=== PATIENT | male | born 1955 | race Caucasian/White ===

== ENCOUNTER 2021-02-15 14:35 | Outpatient (REF) | payer OTHER, SELFPAY ==
[2021-02-15 18:44] LABS: Alanine Aminotransferase 16 U/L (0-40); Albumin Level 2.6 g/dL (3.5-5.0); Alkaline Phosphatase 170 U/L (39-117); Anion Gap 9 (12-20); Aspartate Amino Transferase 28 U/L (5-37); Blood Urea Nitrogen 19 mg/dL (9-16); Calcium 8.3 mg/dL (8.4-10.2); Carbon Dioxide 27 mmol/L (22-29); Chloride 100 mmol/L (96-108); Estimated Glomerular Filt Rate > 60; Glucose Random 127 mg/dL (60-115); Potassium 4.1 mmol/L (3.3-5.1); Sodium 132 mmol/L (135-145); Total Protein 5.8 g/dL (6.5-8.0)
== END 2021-02-15 14:36 | disposition home or self-care (01) ==
LOC: HO.MANLDS 14:35
PROVIDERS: PCP Physician Assistant; Visit Provider Physician Assistant
DX: K72.90 Hepatic failure, unspecified without coma (principal)
CPT/HCPCS: 36415; 80053

== ENCOUNTER 2021-03-22 11:33 | Outpatient (REF) | payer OTHER, SELFPAY ==
[2021-03-22 14:13] LABS: MANUAL DIFF FLAG NO
[2021-03-22 14:18] LABS: Basophils Percent Auto 0.5 % (0-2); Eosinophils Absolute Auto 0.2 X10*3/uL (0.0-0.4); Eosinophils Percent Auto 2.5 % (0-4); Hematocrit 29.6 % (42.0-52.0); Hemoglobin 9.7 g/dl (14.0-18.0); Imm Gran Abs Auto 0.02 X10*3/uL (0.00-0.03); Imm Gran Pct Auto 0.3 % (0.0-0.4); Lymphocytes Absolute Auto 1.8 X10*3/uL (1.2-4.9); Lymphocytes Percent Auto 24.5 % (20-40); Mean Corpuscular HGB Conc 32.8 g/dl (31.0-36.0); Mean Corpuscular Hemoglobin 32.3 pg (27.0-33.0); Mean Corpuscular Volume 98.7 fL (80.0-98.0); Mean Platelet Volume 10.2 fL (9.4-12.4); Monocytes Absolute Auto 0.7 X10*3/uL (0.1-1.2); Monocytes Percent Auto 9.5 % (2-11); Neutrophils Absolute Auto 4.7 x10*3/uL (2.0-8.3); Neutrophils Percent Auto 62.7 % (45-73); Platelet Count 214 X10*3/uL (160-400); Red Cell Distribution Width 14.1 % (11.0-16.0); White Blood Count 7.5 X10*3/uL (4.8-10.8)
[2021-03-22 14:58] LABS: Alanine Aminotransferase 12 U/L (0-40); Albumin Level 2.6 g/dL (3.5-5.0); Alkaline Phosphatase 106 U/L (39-117); Anion Gap 9 (12-20); Aspartate Amino Transferase 22 U/L (5-37); Bilirubin Total 1.5 mg/dL (0.0-1.0); Blood Urea Nitrogen 17 mg/dL (9-16); Calcium 8.7 mg/dL (8.4-10.2); Carbon Dioxide 28 mmol/L (22-29); Chloride 104 mmol/L (96-108); Estimated Glomerular Filt Rate 56; Glucose Fasting 111 mg/dL (60-99); Potassium 4.5 mmol/L (3.3-5.1); Sodium 136 mmol/L (135-145); Total Protein 5.8 g/dL (6.5-8.0)
== END 2021-03-22 11:34 | disposition home or self-care (01) ==
LOC: HO.MANLDS 11:33
PROVIDERS: PCP Internal Medicine; Visit Provider Internal Medicine
DX: K70.40 Alcoholic hepatic failure without coma (principal)
CPT/HCPCS: 36415; 80053; 85025

== ENCOUNTER 2021-06-01 15:20 | Outpatient (REF) | payer OTHER, SELFPAY ==
[2021-06-01 17:58] LABS: MANUAL DIFF FLAG NO
[2021-06-01 18:07] LABS: Basophils Absolute Auto 0.1 X10*3/uL (0.0-0.2); Basophils Percent Auto 0.7 % (0-2); Eosinophils Absolute Auto 0.4 X10*3/uL (0.0-0.4); Hemoglobin 10.4 g/dl (14.0-18.0); Imm Gran Abs Auto 0.03 X10*3/uL (0.00-0.03); Imm Gran Pct Auto 0.4 % (0.0-0.4); Lymphocytes Percent Auto 28.3 % (20-40); Mean Corpuscular HGB Conc 32.5 g/dl (31.0-36.0); Mean Corpuscular Hemoglobin 30.6 pg (27.0-33.0); Mean Corpuscular Volume 94.1 fL (80.0-98.0); Mean Platelet Volume 10.9 fL (9.4-12.4); Monocytes Absolute Auto 0.5 X10*3/uL (0.1-1.2); Monocytes Percent Auto 6.8 % (2-11); Neutrophils Absolute Auto 4.2 x10*3/uL (2.0-8.3); Neutrophils Percent Auto 58.8 % (45-73); Platelet Count 189 X10*3/uL (160-400); Red Cell Distribution Width 13.8 % (11.0-16.0); White Blood Count 7.2 X10*3/uL (4.8-10.8)
[2021-06-01 18:12] LABS: Alanine Aminotransferase 9 U/L (0-40); Albumin Level 3.5 g/dL (3.5-5.0); Alkaline Phosphatase 133 U/L (39-117); Anion Gap 11 (12-20); Aspartate Amino Transferase 19 U/L (5-37); Bilirubin Total 0.8 mg/dL (0.0-1.0); Blood Urea Nitrogen 21 mg/dL (9-16); Calcium 9.5 mg/dL (8.4-10.2); Carbon Dioxide 28 mmol/L (22-29); Chloride 105 mmol/L (96-108); Estimated Glomerular Filt Rate 58; Glucose Random 126 mg/dL (60-115); Potassium 4.2 mmol/L (3.3-5.1); Sodium 140 mmol/L (135-145); Total Protein 6.8 g/dL (6.5-8.0)
[2021-06-01 18:39] LABS: Vitamin B12 389 pg/mL (200-900)
== END 2021-06-01 15:21 | disposition home or self-care (01) ==
LOC: HO.MANLDS 15:20
PROVIDERS: PCP Internal Medicine; Visit Provider Internal Medicine
DX: K70.40 Alcoholic hepatic failure without coma (principal)
CPT/HCPCS: 36415; 80053; 82607; 85025

== ENCOUNTER 2021-07-04 14:37 | Outpatient (REF) | payer MEDICAID, SELFPAY ==
[2021-07-04 17:57] LABS: MANUAL DIFF FLAG NO
[2021-07-04 18:03] LABS: Basophils Absolute Auto 0.1 X10*3/uL (0.0-0.2); Basophils Percent Auto 0.9 % (0-2); Eosinophils Absolute Auto 0.3 X10*3/uL (0.0-0.4); Eosinophils Percent Auto 3.9 % (0-4); Hematocrit 33.9 % (42.0-52.0); Hemoglobin 11.3 g/dl (14.0-18.0); Imm Gran Abs Auto 0.01 X10*3/uL (0.00-0.03); Imm Gran Pct Auto 0.1 % (0.0-0.4); Lymphocytes Percent Auto 29.1 % (20-40); Mean Corpuscular HGB Conc 33.3 g/dl (31.0-36.0); Mean Corpuscular Hemoglobin 31.3 pg (27.0-33.0); Mean Corpuscular Volume 93.9 fL (80.0-98.0); Mean Platelet Volume 11.8 fL (9.4-12.4); Monocytes Absolute Auto 0.7 X10*3/uL (0.1-1.2); Monocytes Percent Auto 9.4 % (2-11); Neutrophils Absolute Auto 3.9 x10*3/uL (2.0-8.3); Neutrophils Percent Auto 56.6 % (45-73); Platelet Count 165 X10*3/uL (160-400); Red Blood Count 3.61 X10*6/uL (4.60-5.80); Red Cell Distribution Width 13.7 % (11.0-16.0); White Blood Count 6.9 X10*3/uL (4.8-10.8)
[2021-07-04 18:11] LABS: Alanine Aminotransferase 18 U/L (0-40); Albumin Level 3.9 g/dL (3.5-5.0); Alkaline Phosphatase 137 U/L (39-117); Anion Gap 12 (12-20); Aspartate Amino Transferase 22 U/L (5-37); Blood Urea Nitrogen 30 mg/dL (9-16); Calcium 9.6 mg/dL (8.4-10.2); Carbon Dioxide 25 mmol/L (22-29); Chloride 105 mmol/L (96-108); Estimated Glomerular Filt Rate 49; Glucose Random 99 mg/dL (60-115); Potassium 4.5 mmol/L (3.3-5.1); Sodium 137 mmol/L (135-145)
[2021-07-04 19:02] LABS: Vitamin B12 303 pg/mL (200-900)
== END 2021-07-04 14:38 | disposition home or self-care (01) ==
LOC: HO.MANLDS 14:37
PROVIDERS: PCP Internal Medicine; Visit Provider Internal Medicine
DX: K70.40 Alcoholic hepatic failure without coma (principal)
CPT/HCPCS: 36415; 80053; 82607; 85025

== ENCOUNTER 2021-10-18 15:26 | Outpatient (REF) | payer MEDICAID, SELFPAY ==
[2021-10-18 19:24] LABS: MANUAL DIFF FLAG NO
[2021-10-18 19:26] LABS: Basophils Percent Auto 0.5 % (0-2); Eosinophils Absolute Auto 0.2 X10*3/uL (0.0-0.4); Eosinophils Percent Auto 2.2 % (0-4); Hematocrit 31.8 % (42.0-52.0); Hemoglobin 10.5 g/dl (14.0-18.0); Imm Gran Abs Auto 0.09 X10*3/uL (0.00-0.03); Imm Gran Pct Auto 1.1 % (0.0-0.4); Lymphocytes Absolute Auto 1.7 X10*3/uL (1.2-4.9); Lymphocytes Percent Auto 19.9 % (20-40); Mean Platelet Volume 10.5 fL (9.4-12.4); Monocytes Absolute Auto 0.6 X10*3/uL (0.1-1.2); Monocytes Percent Auto 7.1 % (2-11); Neutrophils Absolute Auto 5.8 x10*3/uL (2.0-8.3); Neutrophils Percent Auto 69.2 % (45-73); Platelet Count 331 X10*3/uL (160-400); Red Blood Count 3.28 X10*6/uL (4.60-5.80); Red Cell Distribution Width 13.2 % (11.0-16.0); White Blood Count 8.3 X10*3/uL (4.8-10.8)
[2021-10-18 19:36] LABS: INTERNATIONAL NORM RATIO 1.1 (0.9-1.1); Prothrombin Time 12.5 SEC (10.0-13.1)
[2021-10-18 19:39] LABS: Alanine Aminotransferase 83 U/L (0-40); Albumin Level 3.8 g/dL (3.5-5.0); Alkaline Phosphatase 528 U/L (39-117); Anion Gap 14 (12-20); Aspartate Amino Transferase 67 U/L (5-37); Bilirubin Total 5.4 mg/dL (0.0-1.0); Blood Urea Nitrogen 23 mg/dL (9-16); Calcium 9.1 mg/dL (8.4-10.2); Carbon Dioxide 24 mmol/L (22-29); Chloride 101 mmol/L (96-108); Estimated Glomerular Filt Rate 39; Glucose Random 134 mg/dL (60-115); Iron 99 mcg/dL (45-160); Percent Iron Saturation 31 % (15-50); Sodium 135 mmol/L (135-145); Total Iron Binding Capacity 323 mcg/dL (228-428); Total Protein 7.2 g/dL (6.5-8.0); Unsaturated Iron Binding 224 ug/dL
[2021-10-18 19:59] LABS: Ferritin 1249 ng/mL (20-250)
[2021-10-18 20:22] LABS: Folate > 20.0 ng/mL (> or = 4.0); Vitamin B12 354 pg/mL (200-900)
== END 2021-10-18 15:27 | disposition home or self-care (01) ==
LOC: HO.MANLDS 15:26
PROVIDERS: Visit Provider Internal Medicine
DX: D64.9 Anemia, unspecified (principal); K70.31 Alcoholic cirrhosis of liver with ascites
CPT/HCPCS: 36415; 80053; 82607; 82728; 82746; 83540; 85025; 85610

== ENCOUNTER 2023-08-24 09:36 | Outpatient (REF) | payer MEDICARE, BC, SELFPAY ==
[2023-08-24 13:56] LABS: Alanine Aminotransferase 23 U/L (0-40); Alkaline Phosphatase 62 U/L (39-117); Anion Gap 10 (12-20); Aspartate Amino Transferase 23 U/L (5-37); Blood Urea Nitrogen 23 mg/dL (9-16); C Reactive Protein 0.91 mg/dL (< or = 0.50); Calcium 9.1 mg/dL (8.4-10.2); Carbon Dioxide 26 mmol/L (22-29); Chloride 110 mmol/L (96-108); Cholesterol 168 mg/dL (<200); Estimated Glomerular Filt Rate 46; Glucose Random 101 mg/dL (60-115); HDL Cholesterol 39 mg/dL (>40); LDL Cholesterol Calculated 111 mg/dL (<100); Potassium 4.4 mmol/L (3.3-5.1); Sodium 142 mmol/L (135-145); Total Protein 6.6 g/dL (6.5-8.0); Triglycerides 94 mg/dL (<150); Vitamin D 25-OH Total 50.1 ng/mL (>30)
[2023-08-24 14:09] LABS: Vitamin B12 478 pg/mL (200-900)
[2023-08-24 14:20] LABS: Erythrocyte Sedimentation Rate 6 MM/HR (0-15)
[2023-08-28 21:32] LABS: Lyme Abs Screen <0.90 index
[2023-08-30 22:13] LABS: Babesia IgG <1:64 titer (<1:64); Babesia IgM <1:20 titer (<1:20)
== END 2023-08-24 09:37 | disposition home or self-care (01) ==
LOC: HO.MANLDS 09:36
PROVIDERS: Visit Provider Internal Medicine
DX: M79.10 Myalgia, unspecified site (principal); E78.5 Hyperlipidemia, unspecified
CPT/HCPCS: 36415; 80053; 80061; 82306; 82550; 82607; 83735; 85652; 86140; 86617; 86618; 86753

== ENCOUNTER 2023-09-12 09:55 | Outpatient (REF) | payer BC, MEDICARE, SELFPAY ==
[2023-09-12 14:44] LABS: Anion Gap 12 (12-20); Blood Urea Nitrogen 22 mg/dL (9-16); Calcium 8.8 mg/dL (8.4-10.2); Carbon Dioxide 24 mmol/L (22-29); Chloride 111 mmol/L (96-108); Estimated Glomerular Filt Rate 54; Glucose Random 90 mg/dL (60-115); Potassium 4.1 mmol/L (3.3-5.1); Sodium 143 mmol/L (135-145)
== END 2023-09-12 09:56 | disposition home or self-care (01) ==
LOC: HO.MANLDS 09:55
PROVIDERS: Visit Provider Internal Medicine
DX: N28.9 Disorder of kidney and ureter, unspecified (principal)
CPT/HCPCS: 36415; 80048

== ENCOUNTER 2024-09-12 10:35 | Outpatient (REF) | payer BC, MEDICARE, SELFPAY ==
--- OUTSIDE RECORDS SUMMARY | 2024-09-12 11:38 | XMS_ITS | Data Portability ---
Author Organization [facility] Telehealth Patient Home Address [address] [place] [address] Assessment Encounter Date Assessment Date Assessment LastModified by Organization Details LastModified Time 04/07/2024 04/07/2024 [id number] [place] [id number] (CONTROL TECHNICIAN) [facility] MUST MEET 2 OUT OF 3 ELEMENTS: PROBLEMS, DATA OR RISK ELEMENT 1: PROBLEMS 1 OR MORE CHRONIC ILLNESS W/SEVERE EXACERBATION, PROGRESSION MAY REQUIRE HOSPITAL LEVEL CARE OR 1 ACUTE OR CHRONIC ILLNESS OR INJURY THAT POSES A THREAT TO LIFE OR BODILY FUNCTION ELEMENT 2: DATA: MUST MEET 2 OF 3 CATEGORIES CATEGORY 1 REVIEW OF PRIOR EXTERNAL NOTES REVIEW OF THE RESULTS ORDERING OF EACH TEST ASSESSMENT REQUIRING INDEPENDENT HISTORIAN(S) CATEGORY 2: INDEPENDENT INTERPRETATION OF TESTS BY ANOTHER PROVIDER/SPECIALI ST CATEGORY 3: DISCUSSION OF MGT OR TEST INTERPRETATION W/EXTERNAL PHYSICIAN/SPECIAL IST ELEMENT 3: RISK HIGH RISK OF MORBIDITY FROM ADDITIONAL DIAGNOSTIC TESTING OR TREATMENT PROVIDER MUST THOROUGHLY DOCUMENT EACH ELEMENT THAT IS COVERED Not available 04/07/2024 11:00:38 06/04/2024 06/04/2024 [id number] [place] [id number] (CONTROL TECHNICIAN) [facility] MUST MEET 2 OUT OF 3 ELEMENTS: PROBLEMS, DATA OR RISK ELEMENT 1: PROBLEMS 1 OR MORE CHRONIC ILLNESS W/SEVERE EXACERBATION, PROGRESSION MAY REQUIRE HOSPITAL LEVEL CARE OR 1 ACUTE OR CHRONIC ILLNESS OR INJURY THAT POSES A THREAT TO LIFE OR BODILY FUNCTION ELEMENT 2: DATA: MUST MEET 2 OF 3 CATEGORIES CATEGORY 1 REVIEW OF PRIOR EXTERNAL NOTES REVIEW OF THE RESULTS ORDERING OF EACH TEST ASSESSMENT REQUIRING INDEPENDENT HISTORIAN(S) CATEGORY 2: INDEPENDENT INTERPRETATION OF TESTS BY ANOTHER PROVIDER/SPECIALI ST CATEGORY 3: DISCUSSION OF MGT OR TEST INTERPRETATION W/EXTERNAL PHYSICIAN/SPECIAL IST ELEMENT 3: RISK HIGH RISK OF MORBIDITY FROM ADDITIONAL DIAGNOSTIC TESTING OR TREATMENT PROVIDER MUST THOROUGHLY DOCUMENT EACH ELEMENT THAT IS COVERED The patient presented to their appointment today for multiple concerns requiring moderate to high-level decision making and took over 40-45 minutes for an adequate and appropriate history, exam, assessment and treatment plan. This appointment was done with an established patient. Not available 06/04/2024 12:00:45 09/12/2024 09/12/2024 [id number] [place] [id number] (CONTROL TECHNICIAN) [facility] MUST MEET 2 OUT OF 3 ELEMENTS: PROBLEMS, DATA OR RISK ELEMENT 1: PROBLEMS ADDRESSED 1 OR MORE CHRONIC ILLNESS WITH EXACERBATION OR 2 OR MORE STABLE CHRONIC ILLNESSES OR 1 UNDIAGNOSED NEW PROBLEM OR 1 ACUTE ILLNESS W/SYMPTOMS OR 1 ACUTE COMPLICATED INJURY ELEMENT 2: DATA MUST MEET 1 OF 3 CATEGORIES CATEGORY 1: REVIEW OF PRIOR EXTERNAL NOTES, REVIEW OF RESULTS, ORDERING OF EACH TEST, ASSESSMENT REQUIRING INDEPENDENT HISTORIAN OR CATEGORY 2: INDEPENDENT INTERPRETATION OF TESTS BY ANOTHER PHYSICIAN OR SPECIALIST OR CATEGORY 3: DISCUSSION OF MGT OR TEST INTERPRETATION W/EXTERNAL PHYSICIAN OR SPECIALIST ELEMENT 3: RISK RISK OF COMPLICATIONS AND/OR MORBIDITY OR MORTALITY OF PATIENT MANAGEMENT PROVIDER MUST THOROUGHLY DOCUMENT EACH ELEMENT THAT IS COVERED Not available 09/12/2024 10:28:00 Plan of Treatment Reminders Order Date Submit Date Provider Last Modified By Organization Details Last Modified Time Details Appointments FOLLOW UP 2024 10:00A M DR SANTOS Not available Not available Not available FOLLOW UP 15 2024 10:15A M DR SANTOS Not available Not available Not available Lab testoster one, total, serum 2024 025 [facility], [address] [place] [address], [place], [address], 09/12/2024 10:33:37 CBC w/ auto diff 2024 025 [facility], [place], [address], 04/08/2024 05:55:13 CMP, serum or plasma 2024 025 [facility], [place], [address], 04/08/2024 01:48:06 iron + total iron-bind ing capacity (TIBC), serum 2024 025 [facility], [facility], [place], [address], 04/07/2024 11:01:03 Referral None recorded. Procedures None recorded. Surgeries None recorded. Imaging CT, abdomen + pelvis, w/o contrast 2024 025 [facility], [address] [place] [address], [address], 04/09/2024 08:53:28 Medication Orders duloxetin e 30 mg capsule,d elayed release 2024 025 [facility] [address] [place] [address], [address], 09/12/2024 10:33:55 amoxicill in 875 mg tablet 2024 [facility] [address] [place], [address], 09/12/2024 10:00:48 neomycin- polymyxin -hydrocor t 3.5 mg-10,000 unit/mL-1 % ear drops,rolf p 2024 [facility], [address] [place] [address], [address], 09/12/2024 10:01:31 tadalafil 20 mg tablet 2024 025 Not available 06/04/2024 11:59:55 duloxetin e 30 mg capsule,d elayed release 2024 025 [facility], [address] [place] [address], [address], 06/04/2024 11:20:25 methylpre dnisolone 4 mg tablets in a dose pack 2023 025 [email or web address] [facility], [address] [place], [address], 09/12/2024 10:01:14 Patient TargetsNo targets recorded. Patient InstructionsNo instructions recorded. Reason for Referral None Reported. Results Created Date Observation Date Name Description Value Unit Range Abnormal Flag Note LastModifiedBy Organization Detail LastModifiedTime 04/18/1904/17/2024 CT, abdom en + pelvi s, w/o contr ast No observ ation record ed. [email or web address] [facility] [address] [place], [address], 04/23/2024 09:35:35 Result Notes None recorded. Problems Name Problem SNOMED Code Status Onset Date Resolution Date Notes Provider Name and Address Organization Details Recorded Time Anxiety 95104248 Active 2017 Dora antonio [facility] 5 08:28:50 History of back pain 8521118761 12050 Active 2017 Dora antonio [facility] 5 08:29:02 History of depressi on 307875463 Active 2017 Dora antonio [facility] 5 08:29:02 Hyperlip idemia 29133496 Active 2017 Dora antonio [facility] 5 08:28:50 Alcoholi c fatty liver 64578109 Active 2017 Dora antonio [facility] 5 08:28:50 Secondar y peripher al neuropat hy 491272 Active 2017 Dora antonio [facility] 5 08:28:50 Alcoholi c hepatic failure 508244779 Completed 202001/30/2022 Removal Reason: abstinen t Luis Santos, DO [address] [place], [address], [place] [facility] 2 14:31:30 [facility] thromboc ythemia 386451765 Active 2020 Not Available [facility] 3 09:43:20 Chronic gastriti s 4404081 Completed 202001/30/2022 Luis Santos, DO [address] [place] [address], [address], [facility] 2 14:34:26 Right inguinal hernia 234344505 Active 2021 Not Available [facility] 3 09:43:20 Esophagi tis 91239693 Completed 202101/30/2022 Luis Santos, DO [address] [place] [address], [address], [facility] 2 14:34:21 Anemia 174220369 [facility] 08:[facility] Ascites due to alcoholi c cirrhosi s 0369503475 521800 Completed 202101/30/2022 [facility] 5 08:28:50 COVID-19 735318500 Active 2021 Not Available [facility] 3 09:43:20 Right upper quadrant pain 196223468 Completed 202101/30/2022 [facility] 08:29:02 Abdomina l pain 64959868 Active 2021 Dora antonio [facility] 5 08:29:02 Gout 46445871 Active 2021 [facility] 5 08:28:50 Calculus of bile duct with obstruct ion 6928254 Completed 202101/30/2022 Luis Santos, DO [address] [place] [address], [address], [facility] 2 14:34:38 Primary erectile dysfunct ion 128315472 [facility] 5 08:28:50 Alcoholi c polyneur opathy 2356986 Active 2022 Dora Meek null, [facility] 5 08:28:50 Ascites due to alcoholi c cirrhosi s 8187861121 521464 Active 2022 Dora Meek null, [facility] 5 08:28:50 Intermit tent claudica tion 42282324 Active 2022 Dora Meek null, [facility] 5 08:29:02 Erectile dysfunct ion 810460590 Active 2022 Dora Meek null, [facility] 5 08:28:50 Muscle pain 63867361 Active 2023 Dora Meek null, [facility] 5 08:29:02 Renal insuffic iency 533051429 Active 2023 Dora Meek null, [facility] 5 08:28:50 Mood disorder 72035286 Active 2023 Dora Meek null, [facility] 5 08:28:50 Pruritic rash 95405699 Active 2023 Dora Meek null, [facility] 5 08:29:02 Allergic urticari a 23736440 Active 2023 Dora Meek null, [facility] 5 08:28:50 Right upper quadrant pain 126399547 Active 2024 Dora Meek null, [facility] 5 08:29:02 Thromboc ytopenic disorder 430604656 Active 2024 Dora Meek null, [facility] 5 08:28:49 Splenome zainab 93234362 Active 2024 Dora Meek null, [facility] 5 08:29:02 Acute right otitis media 029232594 Active 2024 PETRA SALEEM [address] [place], [address], [facility] 5 14:13:42 Mathews' s esophagu s 282384265 Active 2024 Luis Santos, DO [address] [place], [address], [facility] 5 10:19:48 Hypotest osteroni sm 2140787714 104 Active 2024 Luis Santos, DO [address] [place], [address], [facility] 5 10:31:52 Harmful pattern of use of alcohol 66305651 Completed 201701/30/2022 currentl y in remissio n Luis Santos DO [address] [place], [address], [facility] 2 14:31:52 Notes:Fatty liver on US 04/21 18 Problem Notes None recorded. Procedures Surgical History Date Name Laterality Status Provider Name and Address Organization Details Recorded Time 12/09/19 22 ULTRASOUND GUIDED PARACENTESIS (SURG) completed Luis Santos DO [address] [place] [address], [address], [facility] 12/09/2021 07:21:43 Imaging Results None recorded. Procedure Notes None recorded. Medical Equipment None Reported. Allergies No known drug allergies Medications Name Sig Start Date Stop Date Status Note LastModified by Organization Details LastModified Time bupropion HCl SR 150 mg tablet,12 hr sustained -release TAKE 1 TABLET BY MOUTH TWICE A DAY 08/23 completed Not Available Not Available Not Available prednison e 10 mg tablet TAKE 4 TABS DAILY FOR 2 DAYS,3 TABS FOR 2 DAYS,2 TABS FOR 2 DAYS,1 TAB FOR 2 DAYS,1/2 TAB FOR 2 DAYS 12/16 completed Not Available Not Available Not Available azithromy anoop 250 mg tablet TAKE 2 TABLETS BY MOUTH TODAY, THEN TAKE 1 TABLET DAILY FOR 4 DAYS 05/23 completed Not Available Not Available Not Available ibuprofen 800 mg tablet TAKE ONE TABLET EVERY 8 HOURS NEEDED FOR PAIN 06/15 completed Not Available Not Available Not Available sucralfat e 1 gram tablet Take 1 tablet 4 times a day by oral route for 30 days. 06/06 completed had dirrahea Not Available Not Available Not Available promethaz ine 12.5 mg tablet 03/04 completed Not Available Not Available Not Available famotidin e 40 mg tablet TAKE 1 TABLET BY MOUTH EVERY DAY 06/15 completed Not Available Not Available Not Available spironola ctone 100 mg tablet 03/04 completed Not Available Not Available Not Available thiamine HCl (vitamin B1) 100 mg tablet TAKE 1 TABLET BY MOUTH TWICE A DAY active Not Available Not Available No t Available ciproflox acin 500 mg tablet TAKE 1 TABLET BY MOUTH EVERY 12 HOURS FOR 7 DAYS 09/12 completed Not Available Not Available Not Available amoxicill in 500 mg tablet TAKE 1 TABLET BY MOUTH EVERY 6 HOURS UNTIL FINISHED 05/23 completed Not Available Not Available Not Available ketorolac 0.5 % eye drops 06/15 completed Not Available Not Available Not Available amoxicill in 875 mg tablet TAKE 1 TABLET BY MOUTH EVERY 12 HOURS DIRECTED FOR 7 DAYS 09/12 completed Not Available Not Available Not Available potassium chloride ER 20 mEq tablet,ex tended release(p art/cryst ) 03/04 completed Not Available Not Available Not Available lorazepam 0.5 mg tablet Take 2 tablets every day by oral route as needed for 1 day. 11/15 completed Not Available Not Available Not Available furosemid e 80 mg tablet 03/04 completed Not Available Not Available Not Available cephalexi n 500 mg capsule TAKE 1 CAPSULE BY MOUTH 4 TIMES A DAY FOR 10 DAYS. TAKE W FOOD, YOGURT, PROBIOTI CS. FINISH ALL. 12/16 completed Not Available Not Available Not Available pantopraz ole 40 mg tablet,de layed release TAKE 1 TABLET BY MOUTH EVERY DAY 06/15 completed Not Available Not Available Not Available promethaz ine 25 mg tablet 03/04 completed Not Available Not Available Not Available gabapenti n 300 mg capsule 03/04 completed Not Available Not Available Not Available omeprazol e 20 mg capsule,d elayed release TAKE 1 CAPSULE BY MOUTH EVERY DAY 1/2 TO 1 HOUR BEFORE MORNING MEAL active Not Available Not Available No t Available folic acid 1 mg tablet TAKE 1 TABLET BY MOUTH EVERY DAY 12/16 completed Not Available Not Available Not Available mupirocin 2 % topical ointment APPLY SMALL AMOUNT TO AFFECTED AREAS 3 TIMES A DAY 10/12 completed Not Available Not Available Not Available furosemid e 20 mg tablet TAKE 1 TABLET BY MOUTH EVERY DAY 01/30 completed Not Available Not Available Not Available mirtazapi ne 15 mg tablet TAKE 1 TABLET BY MOUTH EVERY DAY FOR 30 DAYS 04/07 completed Not Available Not Available Not Available lorazepam 1 mg tablet TAKE 0.5 TABLETS BY MOUTH EVERY 6 (SIX) HOURS NEEDED FOR ANXIETY. 12/16 completed Not Available Not Available Not Available methylpre dnisolone 4 mg tablets in a dose pack TAKE 6 TABLETS ON DAY 1 DIRECTED ON PACKAGE AND DECREASE BY 1 TAB EACH DAY FOR A TOTAL OF 6 DAYS 09/12 completed Not Available Not Available Not Available spironola ctone 50 mg tablet TAKE 1 TABLET BY MOUTH EVERY DAY 10/12 completed Not Available Not Available Not Available oxycodone 5 mg tablet TAKE 1 TABLET BY MOUTH EVERY 4 HOURS NEEDED FOR MODERATE PAIN. PARTIAL FILL OK 01/30 completed Not Available Not Available Not Available neomycin- polymyxin -hydrocor t 3.5 mg-10,000 unit/mL-1 % ear drops,rolf p INSTILL 4 DROPS INTO AFFECTED EAR(S) 3 TIMES A DAY 09/12 completed Not Available Not Available Not Available Laxative (bisacody l) 5 mg tablet,de layed release TAKE 4 TABLETS BY MOUTH DAILY FOR 1 DAY 08/23 completed Not Available Not Available Not Available Multivita min 50 Plus tablet Take 1 tablet every day by oral route. active OTC Not Available Not Available No t Available tadalafil 20 mg tablet Take 1 tablet every day by oral route for 12 days. 2024 active Not Available Not Available Not Avai lable escitalop tian 5 mg tablet TAKE 1 TABLET BY MOUTH EVERY DAY FOR 30 DAYS 09/12 completed Not Available Not Available Not Available duloxetin e 30 mg capsule,d elayed release Take 1 capsule every day by oral route for 30 days. 2024 active Not Available Not Available Not Avai lable lactulose 10 gram/15 mL oral solution TAKE 15MLS BY MOUTH EVERY DAY 04/07 completed Not Available Not Available Not Available pregabali n 75 mg capsule TAKE 1 CAPSULE BY MOUTH TWICE A DAY FOR 30 DAYS MAX 5 REFILLS 08/23 completed Not Available Not Available Not Available Vitamin B1 (Thiamine ) daily; OTC 08/23 completed Not Available Not Available Not Available Gavilax 17 gram/dose oral powder DIRECTED 08/23 completed Not Available Not Available Not Available Narcan 4 mg/actuat ion nasal spray 03/04 completed Not Available Not Available Not Available Vitals Date Recorded Body height Body mass index (BMI) Body weight Oxygen saturation Oxygen saturation in Arterial blood by Pulse oximetry Heart rate Systolic blood pressure Diastolic blood pressure Provider Name and Address Organization Details Last Updated DateTime 5 181.61 cm 30.9 kg/m2 469314. 28 g 100 % 100 % 64 /min 138 mm[Hg] 70 mm[Hg] Desiree Jacobsen [facility] 5 10:36:48 Date Recorded Body height Body mass index (BMI) Body weight Heart rate Oxygen saturation Oxygen saturation in Arterial blood by Pulse oximetry Systolic blood pressure Diastolic blood pressure Provider Name and Address Organization Details Last Updated DateTime 5 181.61 cm 29.6 kg/m2 83419.0 8 g 72 /min 98 % 98 % 120 mm[Hg] 76 mm[Hg] Dora Meek [facility] 5 11:22:29 Date Recorded Body height Body mass index (BMI) Body weight Heart rate Oxygen saturation Oxygen saturation in Arterial blood by Pulse oximetry Systolic blood pressure Diastolic blood pressure Provider Name and Address Organization Details Last Updated DateTime 5 181.61 cm 29.4 kg/m2 86774.7 7 g 62 /min 98 % 98 % 134 mm[Hg] 76 mm[Hg] PETRA SALEEM [address] [place], [address], [facility] 5 14:02:31 Date Recorded Body height Body mass index (BMI) Body weight Oxygen saturation Oxygen saturation in Arterial blood by Pulse oximetry Heart rate Systolic blood pressure Diastolic blood pressure Provider Name and Address Organization Details Last Updated DateTime 5 181.61 cm 29 kg/m2 35939.7 1 g 99 % 99 % 61 /min 110 mm[Hg] 66 mm[Hg] Radhabinh Fallon [facility] 5 10:04:04 Date Recorded Body height Body mass index (BMI) Body weight Heart rate Oxygen saturation Oxygen saturation in Arterial blood by Pulse oximetry Systolic blood pressure Diastolic blood pressure Provider Name and Address Organization Details Last Updated DateTime 4 181.61 cm 29.1 kg/m2 01161.0 7 g 78 /min 98 % 98 % 104 mm[Hg] 60 mm[Hg] Dora Meek [facility] 4 10:46:45 Social History Question Answer Notes LastModified by Organizat ion Details LastModified Time Tobacco Smoking Status Former Smoker Christal Francesco antonio [facility] 11/14/2017 16:19:29 What Was The Date Of Your Most Recent Tobacco Screening? 09/12/2024 [email or web address] Information not available 09/12/2024 How Many Years Have You Smoked Tobacco? 15 [email or web address] Information not available 11/14/2017 Sex: Unknown Functional Status Question Answer Note LastModified by Organization D etails LastModified Time Do you or have you ever used any other forms of tobacco or nicotine? No [email or web address] Information not available 06/15/2022 Mental Status None recorded. Family History Nothing Reported. Medical History No medical history recorded. Immunizations Vaccine Type Date Status Note Provider Nam e and Address Organization Details Recorded Time COVID-19 vaccine, vector-nr, rS-Ad26, PF, 0.5 mL 01/18/2021 completed Marilu antonio [facility] 03/30/2021 10:41:10 influenza, unspecified formulation 02/03/2021 completed Benita antonio [facility] 04/07/2022 08:32:02 zoster, unspecified formulation 08/08/2022 arron antonio [facility] 08/11/2022 10:55:41 Past Encounters Encounter ID Performer Location Encounter Start Date Encounter Closed Date Diagnosis/Indication Diagnosis SNOMED-CT Code Diagnosis ICD10 Code Diagnosis Note [id number] Luis Santos [facility] [address] [place] [address],[place] [address] 11/14/2017 16:05:58 11/14/2017 16:51:46 Adult health examination 006158303 Z00.01 Active or passive immunization 081316842 Z23 Screening for malignant neoplasm of colon 661751750 Z12.11 Body mass index 25-29 - overweight 299607262 Z68.28 normal waist circumfere nce Alcoholic fatty liver 50 813756 K70.0 in setting of currently poor diet, but complete abstinence from alcohol will recheck will continue to monitor lft anemia and thrombocyt openia have resolved, again will recheck Secondary peripheral neuropathy 781164 G63 2/2 etoh significan tly improved since etoh Primary er ectile dysfunction 358454596 N52.9 [place] [id number] Luis Santos [facility] [address] [facility],[place] [address] 05/17/2018 15:02:55 05/17/2018 15:43:07 Alcoholic fatty liver 73791014 K70.0 LFTs all normal sober now x 1.5 years -praised for accomplish ment Secondary peripheral neuropathy 735040 G63 most likely 2/2 etoh with significan t improvemen t since etoh abstinence , but sx have not since improved and is concerned something else may be going on Primary er ectile dysfunction 926503374 N52.9 in absence of BPH sx Thrombocytosis 8753633 D 47.3 all back to normal, discharged from heme-onc Hyperlipidemia 41744391 E78.5 all normal Intermitte nt claudication 59297880 I73.9 sx concerning for claudicati on [place] - lesion 400535234 L84 [id number] Luis Santos [facility] [address] [facility],[place] [address] 11/15/2018 15:00:17 11/15/2018 16:04:22 Alcoholic fatty liver 31184494 K70.0 LFTs all normal sober now x 1.5 years -praised for accomplish ment Secondary peripheral neuropathy 106863 G63 has had progressiv e gradual improvemen t continues to see dr vidal had back surgery - dr delgado with good effect - improved back pain, but still has some sciatica Hyperlipidemia 89066863 E78.5 all normal Impaired f asting glycemia 438213300 R73.01 Malaise and fatigue 2717 13476 R53.83 Primary er ectile dysfunction 200663676 N52.9 in absence of BPH sx cialis 20 mg somewhat effective [id number] Luis Santos [facility] [address] [facility],[place] [address] 03/04/2021 13:34:35 03/04/2021 14:29:26 Thrombocytosis 9506595 D47.3 from hepatic failure and this will hopefully improve Secondary peripheral neuropathy 093998 G63 discuss re ambulating and gait and Ascites du e to alcoholic cirrhosis 0878490150 853751 K70.31 need s to have monthly set up Alcoholic hepatic failure 268711112 K70.40 willcont to follow he understand s that if he drinks again he is . 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 Secondary peripheral neuropathy 610878 G63 discuss re ambulating and gait and reccomende d Intermitte nt claudication 35020756 I73.9 seems stable at the moment Chronic gastritis 509653 9 K29.50 decided he is better with the pantoprazo le Ascites 162525845 R18.8 [id number] Luis Santos [facility] [address] [facility] [place] [address] 04/20/2021 08:15:01 04/22/2021 11:37:54 Alcoholic hepatic failure 058497660 K70.40 will cont to follow he understand s that if he drinks again he is .he cont to improve and ahis nutrition status is better overallede ma is also better Thrombocytosis 6046526 D 47.3 from hepatic failure and this will hopefully improve Secondary peripheral neuropathy 957930 G63 discuss re ambulating and gait and reccomende d overall is improvein g even at night Intermitte nt claudication 31747568 I73.9 seems stable at the moment [id number] Luis Santos [facility] [address] [facility],[place] [address] 06/06/2021 10:40:52 06/06/2021 16:05:07 Essential thrombocythemia 180993474 D47.3 stable Gastroesop hageal reflux disease 071055269 K21.00 has fu with on 07/04 with GI for evaluation carafate caused too many side effectswil l start on famotidine Ascites du e to alcoholic cirrhosis 2142005700 407957 K70.31 has fu with US this monthwill most likely will need another tap soon Right inguinal hernia 23 8568185 K40.90 needs eval through general surgeryver y large hernia, not reducing with pressure to the area [id number] Luis Santos [facility] [address] [facility],[place] [address] 07/06/2021 11:38:21 07/06/2021 13:57:54 Active or passive immunization [id number] Z23 advised due for shingles and tdap will consider vaccines Chronic gastritis 351799 9 K29.50 decided he is better with the pantoprazo le famotidine Secondary peripheral neuropathy 427264 G63 discuss re ambulating and gait and reccomende d overall is improvein g even at night Essential thrombocythemia 590567882 D47.3 stabel and not worse and appears improved Alcoholic hepatic failure 929609278 K70.40 here and is doing much better and is feeling goodeating better and ascites is improved and almost resolved [id number] Luis Santos DO [facility] Internal Medicine [address] [facility] [address] [place] [address] 08/03/2021 14:32:13 08/03/2021 16:05:19 Alcoholic hepatic failure 787337823 K70.40 here and is doing much better and is feeling goodeating better and ascites is improved and almost resolvedwi ll be getting a upper endoscopy and colonoscop uy Secondary peripheral neuropathy 182857 G63 discuss re ambulating and gait and reccomende d overall is improvin g even at night Right inguinal hernia 23 6734367 K40.90 given it has markely worsend and now impedes pt from ability to exercise we will refer back to surg [id number] Luis Santos [facility] Internal Medicine [address] [facility], [place] [address] 10/12/2021 10:54:57 10/12/2021 13:51:32 Advance care planning 670322164 Z71.89 done Active or passive immunization 577194673 Z23 advised he is due for tdap, pneu , & shingles vaccines Chronic gastritis 859317 9 K29.50 decided he is better with the pantoprazo le famotidine Alcoholic hepatic failure 966189817 K70.40 here and is doing much better and is feeling goodeating better and ascites is improved and almost resolvedwi ll be getting a upper endoscopy and colonoscop uy Anemia 474491531 D64.9 we will cont Ascites du e to alcoholic cirrhosis 6148856139 291326 K70.31 will need to rechk and get labwork etc [id number] Luis Santos [facility] Internal Medicine [address] [facility], [place] [address] 12/16/2021 09:22:49 12/16/2021 10:18:29 Anxiety 60520243 F41.9 escitalopr am is no longer needed will wean off Hyperlipidemia 42056555 E78.5 will be checking 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 doing well has been abstinent for over a year Ascites du e to alcoholic cirrhosis 3811904578 368258 K70.31 had recent US prior to having cholecyste ctomy scheduled for dec 21 Primary er ectile dysfunction 053980619 N52.9 [id number] Luis Santos [facility] Internal Medicine [address] [facility], [place] [address] 01/30/2022 14:10:12 01/30/2022 16:39:17 Hyperlipidemia 06858930 E78.5 will be checking Active or passive immunization 076589561 Z23 advised he is due for tdap, shingles, and flu shot Essential thrombocythemia 309381697 D47.3 stable and not worse and appears improved Alcoholic fatty liver 50 498002 K70.0 will check LFT to see if he has been resolving [id number] Luis Santos [facility] Internal Medicine [address] [facility],[place] [address] 04/07/2022 11:29:15 04/07/2022 13:34:25 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 he is clearly suffering at bedtime did not tolerate gabapentin in the past so we will treatwith lyrica Ascites du e to alcoholic cirrhosis 4081179229 078490 K70.31 had recent US prior to having cholecyste ctomy scheduled for dec 21 Essential thrombocythemia 950909460 D47.3 stable and not worse and appears improved Intermitte nt claudication 78678553 I73.9 seems stable at the moment [id number] Luis Santos [facility] Internal Medicine [address] [facility], [place] [address] 05/23/2022 09:22:42 05/23/2022 14:02:56 Anxiety 38187073 F41.9 escitalopr am is no longer needed Hyperlipidemia 00504271 E78.5 will be checking Erectile dysfunction 860 983581 F52.21 will refer to urologist Alcoholic polyneuropathy 5731796 G62.1 he is clearly suffering at bedtime did not tolerate gabapentin in the past so we will treatwith lyrica Screening for malignant neoplasm of colon 165832681 Z12.11 [id number] Luis Santos [facility] Internal [facility] [address] [facility], [place] [address] 06/15/2022 11:26:34 06/16/2022 16:34:18 Pre-surgery evaluation 738558985 Z01.818 The patient was seen in the office today for pre-op evaluation . All medical conditions on patient's problem list were addressed and are currently stable, no interventi on needed at this time. Based on history and physical performed, the patient is cleared for surgery. [id number] Luis Santos [facility] Internal Medicine [address] [facility], [place] [facility] [place] [address] 11/22/2022 09:19:57 11/22/2022 09:51:23 Hyperlipidemia 56365916 E78.5 will be checking Alcoholic polyneuropathy 5258499 G62.1 he is clearly suffering at bedtime did not tolerate gabapentin in the past so we will treatwith lyrica Erectile dysfunction 860 724321 F52.21 will refer to urologist Essential thrombocythemia 191402910 D47.3 stable and not worse and appears improved [id number] Luis Santos [facility] Internal [facility] [address] [facility], [place] [address] 08/24/2023 08:57:12 08/24/2023 11:03:51 History of depression 752814076 Z86.59 we will wean off the buprop see how he does and consider mirtaz Depression screening 171 065009 Z13.31 pos will consider mirtaz Gout 90489667 M10.9 uric acid chk needed Muscle pain 79914867 M79 .10 given extensive sx must consider pmr lyme etc Hyperlipidemia 96163482 E78.5 will be checking Alcoholic fatty liver 50 382876 K70.0 will check LFT to see if he has been resolving [id number] Luis Santos [facility] Internal Medicine [address] [facility],[place] [address] 10/02/2023 10:19:20 10/02/2023 15:18:11 Adult health examination 098484245 Z00.01 Screening for cardiovascular system disease 450435621 Z13.6 Screening for malignant neoplasm of colon 105361154 Z12.11 Secondary peripheral neuropathy 535446 G63 discuss re ambulating and gait and reccomende d overall is improving even at night [id number] Luis Santos [facility] Internal Medicine [address] [facility], [place] [facility] [place] [address] 12/21/2023 10:41:59 12/21/2023 11:14:27 Pruritic rash 51562702 L28.2 Allergic urticaria 43947 009 L50.0 [id number] Luis Santos DO [facility] Internal Medicine [address] [facility],[place] [address] 04/07/2024 10:30:19 04/07/2024 11:06:47 Ascites due to alcoholic cirrhosis 0354334605 656933 K70.31 had recent US prior to having cholecyste ctomy scheduled for sep 21 Alcoholic fatty liver 50 162146 K70.0 will check LFT to see if he has been resolving Anemia 259624009 D64.9 we will cont to monitor Essential thrombocythemia 265611654 D47.3 stable and not worse and appears improved Mood disorder 83007201 F 39 will stop the mirtazapin ewill try the duloxetine Right uppe r quadrant pain 796707396 R10.11 noted [id number] Luis Santos [facility] Internal Medicine [address] [facility],[place] [address] 06/04/2024 11:09:04 06/04/2024 12:11:51 Depression screening 952162442 Z13.31 pos will consider mirtaz Ascites du e to alcoholic cirrhosis 4702221281 106930 K70.31 had recent US prior to having cholecyste ctomy scheduled for sep 21 Alcoholic fatty liver 50 940035 K70.0 will check LFT to see if he has been resolving Anemia 446390172 D64.9 we will cont to monitor Essential thrombocythemia 644926852 D47.3 stable and not worse and appears improved Mood disorder 71048353 F 39 will stop the mirtazapin ewill try the duloxetine Right uppe r quadrant pain 622527812 R10.11 noted and is much better Primary er ectile dysfunction 281848282 N52.9 [id number] Luis Santos [facility] Internal Medicine [address] [facility],[place] [address] 06/11/2024 13:55:45 06/11/2024 15:29:52 Acute right otitis media 070837093 H65.01 will set up with amox and ear drop [id number] Luis Santos DO [facility] Internal Medicine [address] [facility],[place] [address] 09/12/2024 09:57:56 09/12/2024 11:00:44 Depression screening 186177330 Z13.31 having some side effects of the escital will change to duloxet Hyperlipidemia 78525158 E78.5 will be checking Health Concerns Section Related Observation LastModified by Organization Detai ls LastModified Time None Recorded Concern Status LastModified by Organization Details LastModified Time None Recorded Advance Directives Directive None Recorded Payers Insurance Date Sequence Insurance Name Policy Number Policy 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 Member ID Guarantor Name 09/09/2024 3 [place] [facility] Yobani Montero [id number] Yobani Montero 09/09/2024 1 [facility] (O) [id number] Yobani Montero [id number] Yobani Montero 09/09/2024 1 [place] [facility] ([place]) [id number] Yobani Montero [id number] Yobani Montero 09/09/2024 1 [facility] (O) [id number] Yobani Montero [id number] Yobani Montero 09/09/2024 3 [place] PRIOR TO 2022 - [facility] (MEDICAID) Yobani Montero [id number] Yobani Montero 09/09/2024 1 [place] [employer] Yobani Montero [id number] Yobani Montero 09/09/2024 2 [place] [id number] Yobani Montero [id number] Yobani Montero Notes Date Note Type Note Provider Name and Address Organization Details Recorded Time 12/21/19 24 text/htm l here for rashdeveloped 4 days ago on back and neck and has spread to arms face and now legs Luis Santos DO [address] [facility], [place], [address], [facility] 12/21/2023 11:13:23 04/07/19 25 text/htm l herefor rechkrelates that the mirtazapine is making him too tiredrelates still feeling downhad felt good with escitalopram but had side effects also has had some RUQ PAIN relates that it radiates to his backno issue after eating most notable when up and moving around gets a severe cramp t times lasts a few seonds and double him over Luis Saumya Santos, DO [address] [place], [address], [facility] Internal Medicine 04/07/2024 11:01:08 06/05/19 25 text/htm l here for rechk and is doing ok has lost 10 lbs through better diethas been abstinentescitalopram was started last week priorhere for rechkrelates that the mirtazapine is making him too tiredrelates still feeling downhad felt good with escitalopram but had side effects also has had some RUQ PAIN relates that it radiates to his backno issue after eating most notable when up and moving around gets a severe cramp t times lasts a few seconds and double him over Luis A. Phyllis, DO [address] [place], [address], [facility] Internal Medicine 06/04/2024 12:00:49 06/12/19 25 text/htm l c/o right ear pain increased tinnitus, denies cold symptoms, reports facial pain, no hearing changesthe patient noted it started Sunday and has progressed since then does note his dog has been licking into his ear, which could be the source of the infection notable redness and bulging right side of his TM PETRA SALEEM [address] [place], [address], [facility] Medicine 06/11/2024 14:17:48 09/13/19 25 text/htm l Care Management - HyperlipidemiaReported bypatient.Control:usually well controlled; improving; at goal Complications:no coronary artery disease; no heart attack; no cardiovascular disease; no pancreatitis; no stroke here for fllow up apptdoing wellhad a recent egd which showed Barrets esoph without dysplasia priorhere for rechkrelates that the mirtazapine is making him too tiredrelates still feeling downhad felt good with escitalopram but had side effects also has had some RUQ PAIN relates that it radiates to his backno issue after eating most notable when up and moving around gets a severe cramp t times lasts a few seconds and double him over Luis Binh. Phlylis, DO [address] [facility], [place], [address], [place] [facility] 09/12/2024 10:34:36
[2024-09-16 15:17] LABS: Testosterone, Total 583 ng/dL (250-1100)
== END 2024-09-12 10:36 | disposition home or self-care (01) ==
LOC: HO.MANLDS 10:35
PROVIDERS: Visit Provider Internal Medicine
DX: Z13.31 Encounter for screening for depression (principal)
CPT/HCPCS: 36415; 84403

== ENCOUNTER 2024-10-28 10:46 | Outpatient (REF) | payer MEDICARE, BC, SELFPAY ==
--- OUTSIDE RECORDS SUMMARY | 2024-10-28 11:59 | XMS_ITS | Clinical Summary ---
[facility] Organization [facility] Address [address] [place] [address] Care Team Providers Care Administrative And Program Specialist Name Role Phone Luis Ferguson Primary Care Provider [phone] Social History Tobacco Use Types Packs/Day Years Used Date Smoking Tobacco: Never Assessed Sex and Gender Information Value Date Recorded Sex Assigned at Male 03/22/2022 2:37 PM EST Legal Sex Male 11:15 AM EST Gender Identity Male 03/22/2022 2:37 PM EST Sexual Orientation Straight 03/22/2022 2: 37 PM EST Plan of Treatment Health Maintenance Due Date Last Done Comments DTaP,Tdap,and Td Vaccines (1 - Tdap) 1976 Pneumococcal Vaccine: 50+ Ye ars (1 of 1 - PCV) 2007 Zoster Vaccines (1 of 2) 2007 COVID-19 Vaccine ( - 2023-2 5 season) 2023 Depression Screening 04/02/2024 Influenza Vaccine (#1) 2024 RSV Immunization Adult Patie nts (1 - 1-dose 75+ series) 2032 HIB Vaccines Aged Out No longer eligi ble based on patient's age to complete this topic HPV Vaccines Aged Out No longer eligi ble based on patient's age to complete this topic Hepatitis A Vaccines Aged Out No long er eligible based on patient's age to complete this topic Hepatitis B Vaccines Aged Out No long er eligible based on patient's age to complete this topic IPV Vaccines Aged Out No longer eligi ble based on patient's age to complete this topic MMR Vaccines Aged Out No longer eligi ble based on patient's age to complete this topic Meningococcal ACWY Vaccine Aged Out N o longer eligible based on patient's age to complete this topic Meningococcal B Vaccine Aged Out No l onger eligible based on patient's age to complete this topic RSV Immunization Patients Un john 20 months Aged Out No longer eligible b ased on patient's age to complete this topic Varicella Vaccines Aged Out No longer eligible based on patient's age to complete this topic Advance Directives Documents on File Type Date Recorded 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 [address] [place], [place] PCP - General Internal Medicine 07/08/18
--- OUTSIDE RECORDS SUMMARY | 2024-10-28 11:59 | XMS_ITS | Data Portability ---
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) MDM MODERATE MUST MEET 2 OUT OF [...] EACH ELEMENT THAT IS COVERED Not available 10/27/2024 10:38:24 Plan of Treatment Reminders Order Date Submit Date Provider Last Modified By Organization Details Last Modified Time Details Appointments MEDICARE ANNUAL WELLNESS 2024 11:45A M DR SANTOS Not available Not available Not available Lab vitamin B12, serum 2024 025 [facility], [address] [place] [address], [address], 10/27/2024 10:43:56 TSH, serum or plasma 2024 [facility], [address] [place] [address], [address], 10/27/2024 10:43:56 testoster one, total, serum 2024 [facility], [address] [place] [address], [address], 10/27/2024 10:43:56 CBC w/ auto diff 2024 [facility], [address] [place] [address], [address], 10/27/2024 10:43:56 vitamin D, 25-hydrox y, total, serum 2024 [facility], [address] [place] [address], [address], 10/27/2024 10:43:56 CMP, serum or plasma 2024 [facility], [address] [place] [address], [address], 10/27/2024 10:43:56 iron + TIBC + ferritin, serum 2024 [facility], [address] [place] [address], [address], 10/27/2024 10:43:56 ESR (erythroc yte sedimenta tion rate), blood 2024 [facility], [address] [place] [address], [address], 10/27/2024 10:43:56 testoster one, total, serum 2024 [facility], [address] [place] [address], [place], [address], 09/17/2024 11:41:25 CBC w/ auto diff 2024 025 [facility], [place], [address], 04/08/2024 05:55:13 CMP, serum or plasma 2024 025 [facility], [place], [address], 04/08/2024 01:48:06 iron + total iron-bind ing capacity (TIBC), serum 2024 025 [facility], [place], [address], 04/07/2024 11:01:03 Referral None recorded. Procedures None recorded. Surgeries None recorded. Imaging CT, abdomen + pelvis, w/o contrast 2024 [facility], [address] [place], [address], 04/09/2024 08:53:28 Medication Orders duloxetin e 30 mg capsule,d elayed release 2024 025 [facility] #2024, [address] [place], [address], 09/12/2024 10:33:55 amoxicill in 875 mg tablet 2024 [facility] #2024, [address] [place], [address], 09/12/2024 10:00:48 neomycin- polymyxin -hydrocor t 3.5 mg-10,000 unit/mL-1 % ear drops,rolf p 2024 025 [facility]acy #2024, [address] [place], [address], 09/12/2024 10:01:31 tadalafil 20 mg tablet 2024 025 Not available 06/04/2024 11:59:55 duloxetin e 30 mg capsule,d elayed release 2024 025 [facility], [address] [place], [address], 06/04/2024 11:20:25 Patient TargetsNo targets recorded. Patient Instructions Encounter Date Encounter Id Patient Instructions Last Modified By Organization Details Last Modified Time 10/27/2024 [id number] anemia: care instructions Not available 10/27/2024 10:44:38 Reason for Referral None Reported. Results Created Date Observation Date Name Description Value Unit Range Abnormal Flag Note LastModifiedBy Organization Detail LastModifiedTime 04/18/1904/17/2024 CT, abdom en + pelvi s, w/o contr ast No observ ation record ed. [email or web address] [facility] [address] [place], [address], 04/23/2024 09:35:35 Result Notes None recorded. Problems Name Problem SNOMED Code Status Onset Date Resolution Date Notes Provider Name and Address Organization Details Recorded Time Harmful pattern of use of alcohol 99885662 Completed 201701/30/2022 currentl y in staciio kirsten Santos, DO [address] [place], [address], [facility] 2 14:31:52 Anxiety 52858523 Active 2017 [facility] 5 08:28:50 History of back pain 2376804573 10108 Active 2017 Dora antonio [facility] 5 08:29:02 History of depressi on 453300670 Active 2017 Dora antonio [facility] 5 08:29:02 Hyperlip idemia 15961789 [facility] 5 08:28:50 Alcoholi c fatty liver 75859114 [facility] 2017 [facility] 08:28:50 Secondar y peripher al neuropat hy 180523 Active 2017 [facility] 5 08:28:50 Alcoholi c hepatic failure 256018875 Completed 202001/30/2022 Removal Reason: abstinen t Luis Santos, DO [address] [place] [address], [address], [facility] 2 14:31:30 [facility] thromboc ythemia 771550069 Active 2020 Not Available [facility] 3 09:43:20 Chronic gastriti s 2181774 Completed 202001/30/2022 Luis Santos, DO [address] [place] [address], [address], [facility] 2 14:34:26 Right inguinal hernia 056094323 Active 2021 Not Available [facility] 3 09:43:20 COVID-19 160924189 Active 2021 Not Available [facility] 3 09:43:20 Esophagi tis 88203868 Completed 202101/30/2022 Luis Santos, DO [address] [place], [address], [facility] 2 14:34:21 Anemia 006695132 Active 2021 [facility] 5 08:28:50 Ascites due to alcoholi c cirrhosi s 2005818157 902104 Completed 202101/30/2022 [facility] 5 08:28:50 Right upper quadrant pain 154338708 Completed 202101/30/2022 Dora Meek null, [facility] 5 08:29:02 Abdomina l pain 04831089 Active 2021 Dora Meek null, [facility] 5 08:29:02 Gout 22579094 Active 2021 Dora Meek null, [facility] 5 08:28:50 Calculus of bile duct with obstruct ion 8486725 Completed 202101/30/2022 Luis Santos, DO [address] [facility], [place], [address], [facility] 2 14:34:38 Primary erectile dysfunct ion 530209434 Active 2021 Dora Meek null, [facility] 5 08:28:50 Alcoholi c polyneur opathy 3251833 Active 2022 Dora Meek null, [facility] 5 08:28:50 Ascites due to alcoholi c cirrhosi s 0853127304 412033 Active 2022 Dora Meek null, [facility] 5 08:28:50 Intermit tent claudica tion 45558994 Active 2022 Dora Meek null, [facility] 5 08:29:02 Erectile dysfunct ion 216862494 Active 2022 Dora Meek null, [facility] 5 08:28:50 Muscle pain 28847414 Active 2023 Dora Meek null, [facility] 5 08:29:02 Renal insuffic iency 540264702 Active 2023 Dora Meek null, [facility] 5 08:28:50 Mood disorder 74532414 Active 2023 Dora Meek null, [facility] 5 08:28:50 Pruritic rash 46600887 Active 2023 Dora Meek null, [facility] 5 08:29:02 Allergic urticari a 03067506 Active 2023 Doramayur Meek null, [facility] 5 08:28:50 Right upper quadrant pain 498160200 Active 2024 Dora Meek null, [facility] 5 08:29:02 Thromboc ytopenic disorder 673943971 Active 2024 Doramayur Meek null, [facility] 5 08:28:49 Splenome zainab 83403045 Active 2024 Doramayur Meek null, [facility] 5 08:29:02 Acute right otitis media 327039863 Active 2024 PETRA SALEEM [address] [place], [address], [facility] 5 14:13:42 Mathews' s esophagu s 702915896 Active 2024 Luis Santos DO [address] [place] [address], [address], [facility] 5 10:19:48 Hypotest osteroni sm 6981596340 104 Active 2024 Luis Santos DO [address] [place] [address], [address], [facility] 5 10:31:52 Fatigue 05634349 Active 2024 Luis Santos DO [address] [place] [address], [address], [facility] 5 10:41:02 Notes:Fatty liver on US 04/21 18 Problem Notes None recorded. Procedures Surgical History Date Name Laterality Status Provider Name and Address Organization Details Recorded Time 12/09/19 22 ULTRASOUND GUIDED PARACENTESIS (SURG) completed Luis Santos DO [address] [place] [address], [address], [facility] 12/09/2021 07:21:43 Imaging Results None recorded. [...] BY MOUTH EVERY DAY FOR 30 DAYS active Not Available Not Available No t Available duloxetin e 30 mg capsule,d elayed release TAKE 1 CAPSULE BY MOUTH EVERY DAY active Not Available Not Available No t Available lactulose 10 gram/15 mL oral solution TAKE [...] blood by Pulse oximetry Heart rate Systolic And Diastolic Provider Name and Address Organization Details Last Updated DateTime 5 181.61 cm 30.9 kg/m2 419092. 28 g 100 % 100 % 64 /min 138/70 mm[Hg] [facility] 5 10:36:48 Date Recorded Body height Body mass index (BMI) Body weight Heart rate Oxygen saturation Oxygen saturation in Arterial blood by Pulse oximetry Systolic And Diastolic Provider Name and Address Organization Details Last Updated DateTime 5 181.61 cm 29.6 kg/m2 25327.0 8 g 72 /min 98 % 98 % 120/76 mm[Hg] Dora Meek [facility] 5 11:22:29 Date Recorded Body height Body mass index (BMI) Body weight Heart rate Oxygen saturation Oxygen saturation in Arterial blood by Pulse oximetry Systolic And Diastolic Provider Name and Address Organization Details Last Updated DateTime 5 181.61 cm 29.4 kg/m2 23737.7 7 g 62 /min 98 % 98 % 134/76 mm[Hg] PETRA SALEEM [address] [place], [address], [facility] 5 14:02:31 Date Recorded Body height Body mass index (BMI) Body weight Oxygen saturation Oxygen saturation in Arterial blood by Pulse oximetry Heart rate Systolic And Diastolic Provider Name and Address Organization Details Last Updated DateTime 5 181.61 cm 29 kg/m2 24886.7 1 g 99 % 99 % 61 /min 110/66 mm[Hg] Radha Fallon [facility] 5 10:04:04 Date Recorded Body height Body mass index (BMI) Body weight Oxygen saturation Oxygen saturation in Arterial blood by Pulse oximetry Heart rate Systolic And Diastolic Provider Name and Address Organization Details Last Updated DateTime 5 181.61 cm 28.9 kg/m2 34773.7 6 g 99 % 99 % 60 /min 110/64 mm[Hg] Radha Fallon [facility] Internal [facility] 5 10:21:54 Social History Question Answer Notes LastModified by Organizat ion Details LastModified Time Tobacco Smoking Status Former Smoker Christal antonio [facility] 11/14/2017 16:19:29 What Was The Date Of Your Most Recent Tobacco Screening? 10/27/2024 [email or web address] Information not available 10/27/2024 How Many Years Have You Smoked Tobacco? 15 [email or web address] Information not available 11/14/2017 Sex: Unknown Functional Status Question Answer Note LastModified by Organization D etails LastModified Time Do you or have you ever used any other forms of tobacco or nicotine? No [email or web address] Information not available 06/15/2022 Mental Status None recorded. Family History Nothing Reported. Medical History No medical history recorded. Immunizations Vaccine Type Date Status Note Provider Nam e and Address Organization Details Recorded Time COVID-19 vaccine, vector-nr, rS-Ad26, PF, 0.5 mL 01/18/2021 completed Marilu Gottlieb [facility] 03/30/2021 10:41:10 influenza, unspecified formulation 02/03/2021 completed Benita Thompson [facility] 04/07/2022 08:32:02 zoster, unspecified formulation 08/08/2022 completed Desiree Jacobsen [facility] 08/11/2022 10:55:41 Past Encounters Encounter ID Performer Location Encounter Start Date Encounter Closed Date Diagnosis/Indication Diagnosis SNOMED-CT Code Diagnosis ICD10 Code Diagnosis Note [id number] Santos [address], [place] [address] 11/14/2017 16:05:58 11/14/2017 16:51:46 Adult health examination 243936383 Z00.01 Active or passive immunization 527701376 Z23 Screening for malignant neoplasm of colon 137442875 Z12.11 Body mass index 25-29 - overweight 341798553 Z68.28 normal waist circumfere nce Alcoholic fatty liver 50 649662 K70.0 in setting of currently poor diet, but complete abstinence from alcohol will recheck will continue to monitor lft anemia and thrombocyt openia have resolved, again will recheck Secondary peripheral neuropathy 368307 G63 2/2 etoh significan tly improved since etoh Primary er ectile dysfunction 063687881 N52.9 [place] of [place]x [id number] Luis Santos [facility] Internal [facility] [address] [facility], [place] [address] 05/17/2018 15:02:55 05/17/2018 15:43:07 Alcoholic fatty liver 77422816 K70.0 LFTs all normal sober now x 1.5 years -praised for accomplish ment Secondary peripheral neuropathy 785570 G63 most likely 2/2 etoh with significan t improvemen t since etoh abstinence , but sx have not since improved and is concerned something else may be going on Primary er ectile dysfunction 160329869 N52.9 in absence of BPH sx Thrombocytosis 7853532 D 47.3 all back to normal, discharged from heme-onc Hyperlipidemia 27626119 E78.5 all normal Intermitte nt claudication 63566918 I73.9 sx concerning for claudicati on [place] - lesion 612159800 L84 [id number] Luis Santos [facility] [address] [facility],[place] [address] 11/15/2018 15:00:17 11/15/2018 16:04:22 Alcoholic fatty liver 65962078 K70.0 LFTs all normal sober now x 1.5 years -praised for accomplish ment Secondary peripheral neuropathy 414695 G63 has had progressiv e gradual improvemen t continues to see dr vidal had back surgery - dr delgado with good effect - improved back pain, but still has some sciatica Hyperlipidemia 99946304 E78.5 all normal Impaired f asting glycemia 795037302 R73.01 Malaise and fatigue 2717 17687 R53.83 Primary er ectile dysfunction 511487245 N52.9 in absence of BPH sx cialis 20 mg somewhat effective [id number] Luis Santos [facility] [address] [facility],[place] [address] 03/04/2021 13:34:35 03/04/2021 14:29:26 Thrombocytosis 5348678 D47.3 from hepatic failure and this will hopefully improve Secondary peripheral neuropathy 984764 G63 discuss re ambulating and gait and Ascites du e to alcoholic cirrhosis 5793434878 924763 K70.31 need s to have monthly set up Alcoholic hepatic failure 352962887 K70.40 willcont to follow he understand s that if he drinks again he is . Renewal of prescription 314107293 Z76.0 Impetigo 71209231 L01.00 [id number] Luis Santos [facility] [address] [facility] [address] [facility],[place] [address] 03/29/2021 08:17:28 03/29/2021 16:02:49 Harmful pattern of use of alcohol 77875783 F10.10 doing well Alcoholic hepatic failure 202799104 K70.40 will cont to follow he understand s that if he drinks again he is . Secondary peripheral neuropathy 831325 G63 discuss re ambulating and gait and reccomende d Intermitte nt claudication 56682345 I73.9 seems stable at the moment Chronic gastritis 657861 9 K29.50 decided he is better with the pantoprazo le Ascites 126428522 R18.8 [id number] Luis Santos [facility] [address] [facility],[place] [address] 04/20/2021 08:15:01 04/22/2021 11:37:54 Alcoholic hepatic failure 473264824 K70.40 will cont to follow he understand s that if he drinks again he is .he cont to improve and ahis nutrition status is better overallede ma is also better Thrombocytosis 7205579 D 47.3 from hepatic failure and this will hopefully improve Secondary peripheral neuropathy 874042 G63 discuss re ambulating and gait and reccomende d overall is improvein g even at night Intermitte nt claudication 29580027 I73.9 seems stable at the moment [id number] Luis Santos [facility] [address] [facility],[place] [address] 06/06/2021 10:40:52 06/06/2021 16:05:07 Essential thrombocythemia 292126820 D47.3 stable Gastroesop hageal reflux disease 525287764 K21.00 has fu with on 07/04 with GI for evaluation carafate caused too many side effectswil l start on famotidine Ascites du e to alcoholic cirrhosis 5182405967 805022 K70.31 has fu with US this monthwill most likely will need another tap soon Right inguinal hernia 23 4265464 K40.90 needs eval through general surgeryver y large hernia, not reducing with pressure to the area [id number] Luis Santos [facility] [address] [facility],[place] [facility] [address] 07/06/2021 11:38:21 07/06/2021 13:57:54 Active or passive immunization 732405863 Z23 advised due for shingles and tdap will consider vaccines Chronic gastritis 765959 9 K29.50 decided he is better with the pantoprazo le famotidine Secondary peripheral neuropathy 502865 G63 discuss re ambulating and gait and reccomende d overall is improvein g even at night Essential thrombocythemia 037456569 D47.3 stabel and not worse and appears improved Alcoholic hepatic failure 854420142 K70.40 here and is doing much better and is feeling goodeating better and ascites is improved and almost resolved [id number] Luis Santos DO [facility] Medicine [address] [facility],[place] [address] 08/03/2021 14:32:13 08/03/2021 16:05:19 Alcoholic hepatic failure 088539728 K70.40 here and is doing much better and is feeling goodeating better and ascites is improved and almost resolvedwi ll be getting a upper endoscopy and colonoscop uy Secondary peripheral neuropathy 753774 G63 discuss re ambulating and gait and reccomende d overall is improvin g even at night Right inguinal hernia 23 5085103 K40.90 given it has markely worsend and now impedes pt from ability to exercise we will refer back to surg [id number] Luis Santos DO [facility] Internal Medicine [address] [facility],[place] [address] 10/12/2021 10:54:57 10/12/2021 13:51:32 Advance care planning 234669440 Z71.89 done Active or passive immunization 439870728 Z23 advised he is due for tdap, pneu , & shingles vaccines Chronic gastritis 318098 9 K29.50 decided he is better with the pantoprazo le famotidine Alcoholic hepatic failure 053035877 K70.40 here and is doing much better and is feeling goodeating better and ascites is improved and almost resolvedwi ll be getting a upper endoscopy and colonoscop uy Anemia 329980285 D64.9 we will cont Ascites du e to alcoholic cirrhosis 1644575059 579182 K70.31 will need to rechk and get labwork etc [id number] Luis Santos DO [facility] Internal Medicine [address] [facility],[place] [facility] [place] [address] 12/16/2021 09:22:49 12/16/2021 10:18:29 Anxiety 77110968 F41.9 escitalopr am is no longer needed will wean off Hyperlipidemia 95974406 E78.5 will be checking Harmful pa ttern of use of alcohol 76213093 F10.10 doing well has been abstinent for over a year Ascites du e to alcoholic cirrhosis 5723792550 661698 K70.31 had recent US prior to having cholecyste ctomy scheduled for dec 21 Primary er ectile dysfunction 586956386 N52.9 [id number] Luis Santos [facility] [address] [facility],[place] [facility] [place] [address] 01/30/2022 14:10:12 01/30/2022 16:39:17 Hyperlipidemia 75960984 E78.5 will be checking Active or passive immunization 385921193 Z23 advised he is due for tdap, shingles, and flu shot Essential thrombocythemia 803697246 D47.3 stable and not worse and appears improved Alcoholic fatty liver 50 642279 K70.0 will check LFT to see if he has been resolving [id number] Luis Santos [facility] Medicine [address] [facility],[place] [address] 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 [place] [address] 05/23/2022 09:22:42 05/23/2022 14:02:56 Anxiety 08515515 F41.9 escitalopr am is no longer needed Hyperlipidemia 20053397 E78.5 will be checking Erectile dysfunction 860 331892 F52.21 will refer to urologist Alcoholic polyneuropathy 8998399 G62.1 he is clearly suffering at bedtime did not tolerate gabapentin in the past so we will treatwith lyrica Screening for malignant neoplasm of colon 640961792 Z12.11 [id number] Luis Santos [facility] Medicine [address] [facility],[place] [address] 06/15/2022 11:26:34 06/16/2022 16:34:18 Pre-surgery evaluation 272986754 Z01.818 The patient was seen in the office today for pre-op evaluation . All medical conditions on patient's problem list were addressed and are currently stable, no interventi on needed at this time. Based on history and physical performed, the patient is cleared for surgery. [id number] Luis Santos [facility] Internal [facility] [address] [facility], [place] [address] 11/22/2022 09:19:57 11/22/2022 09:51:23 Hyperlipidemia 15399192 E78.5 will be checking Alcoholic polyneuropathy 2148541 G62.1 he is clearly suffering at bedtime did not tolerate gabapentin in the past so we will treatwith lyrica Erectile dysfunction 860 180081 F52.21 will refer to urologist Essential thrombocythemia 089081529 D47.3 stable and not worse and appears improved [id number] Luis Santos [facility] Internal [facility] [address] [facility], [place] [address] 08/24/2023 08:57:12 08/24/2023 11:03:51 History of depression 733186159 Z86.59 we will wean off the buprop see how he does and consider mirtaz Depression screening 171 552773 Z13.31 pos will consider mirtaz Gout 08624346 M10.9 uric acid chk needed Muscle pain 71094651 M79 .10 given extensive sx must consider pmr lyme etc Hyperlipidemia 86888396 E78.5 will be checking Alcoholic fatty liver 50 369871 K70.0 will check LFT to see if he has been resolving [id number] Luis Santos [facility] Medicine [address] [facility], [place] [address] 10/02/2023 10:19:20 10/02/2023 15:18:11 Adult health examination 933670877 Z00.01 Screening for cardiovascular system disease 827777040 Z13.6 Screening for malignant neoplasm of colon 531282620 Z12.11 Secondary peripheral neuropathy 659428 G63 discuss re ambulating and gait and reccomende d overall is improving even at night [id number] Luis Santos [facility] Internal Medicine [address] [facility] [address] 12/21/2023 10:41:59 12/21/2023 11:14:27 Pruritic rash 89360108 L28.2 Allergic urticaria 95814 009 L50.0 [id number] Luis Santos [facility] Internal Medicine [address] [facility] [address] 04/07/2024 10:30:19 04/07/2024 11:06:47 Ascites due to alcoholic cirrhosis [id number] 617489 K70.31 had recent US prior to having cholecyste ctomy scheduled for sep 21 Alcoholic fatty liver 50 820427 K70.0 will check LFT to see if he has been resolving Anemia 584752728 D64.9 we will cont to monitor Essential thrombocythemia 999364672 D47.3 stable and not worse and appears improved Mood disorder 71626492 F 39 will stop the mirtazapin ewill try the duloxetine Right uppe r quadrant pain 163686552 R10.11 noted [id number] Luis Santos [facility] Internal Medicine [address] [facility],[place] [address] 06/04/2024 11:09:04 06/04/2024 12:11:51 Depression screening [id number] Z13.31 pos will consider mirtaz Ascites du e to alcoholic cirrhosis [id number] 145015 K70.31 had recent US prior to having cholecyste ctomy scheduled for sep 21 Alcoholic fatty liver 50 563581 K70.0 will check LFT to see if he has been resolving Anemia 771314563 D64.9 we will cont to monitor Essential thrombocythemia 863266299 D47.3 stable and not worse and appears improved Mood disorder 86372359 F 39 will stop the mirtazapin ewill try the duloxetine Right uppe r quadrant pain 358091318 R10.11 noted and is much better Primary er ectile dysfunction 112996076 N52.9 [id number] Luis Santos [facility] Internal Medicine [address] [facility],[address] [facility] [place] [address] 06/11/2024 13:55:45 06/11/2024 15:29:52 Acute right otitis media 724121693 H65.01 will set up with amox and ear drop [id number] Luis Santos [facility] Internal Medicine [address] [facility],[place] [address] 09/12/2024 09:57:56 09/12/2024 11:00:44 Depression screening 123482366 Z13.31 having some side effects of the escital will change to duloxet Hyperlipidemia 89980359 E78.5 will be checking [id number] Luis Santos [facility] Internal Medicine [address] [facility],[place] [address] 10/27/2024 10:11:57 10/27/2024 11:42:29 Depression screening 651320851 Z13.31 doing ok with the duloxetine Hyperlipidemia 73172008 E78.5 will be checking Alcoholic polyneuropathy 1914245 G62.1 doing ok with duloxetine no side effects Fatigue 38250251 R53.82 will do eval and rechk Anemia 962508101 D64.9 we will cont to monitor Health Concerns Section Related Observation LastModified by Organization Detai ls LastModified Time None Recorded Concern Status LastModified by Organization Details LastModified Time None Recorded Advance Directives Directive None Recorded Payers Insurance Date Sequence Insurance Name Policy Number Policy 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 Member ID Guarantor Name 10/26/2024 3 [place] [facility] Yobani Montero [id number] Yobani Montero 10/26/2024 1 [facility] [id number] Yobani Montero [id number] Yobani Montero 10/26/2024 1 [facility] [id number] Yobani Montero [id number] Yobani Montero 10/26/2024 1 [facility] [id number] Yobani Montero [id number] Yobani Montero 10/26/2024 3 [place] PRIOR [place] 2022 - [facility] (MEDICAID) Yobani Montero [id number] Yobani Montero 10/26/2024 1 [place] [employer] Yobani Montero [id number] Yobani Montero 10/26/2024 2 [place] [id number] Yobani Montero [id number] Yobani Montero
--- OUTSIDE RECORDS SUMMARY | 2024-10-28 11:59 | XMS_ITS | Encounter Summary ---
Author Organization [facility] Address [address] [place] [address] Phone Care Team Providers Care Instrument Lens Grinder Apprentice Name Role Phone Luis Ferguson DO Primary Care Provider [phone] Reid Li DO Unavailable [phone] Luis Ferguson DO Unavailable Luis Ferguson DO Unavailable Margarita Guerra PA-C Unavailable [phone] Encounter Details Date Type Department Care Team (Late st Contact Info) Description 02/06/2017 Transcribe Orders [facility] Laboratory [address] [place] [address] Luis Ferguson DO [address] [facility] [place] [address] [place] [address] Acute alcoholism (Primary Dx); Localized edema; Neuropathy Social History Tobacco Use Types Packs/Day Years Used Date Smoking Tobacco: Former Smokeless Tobacco: Former Alcohol Use Standard Drinks/Week Comments No 0 (1 standard drink = 0.6 oz pur e alcohol) Sex and Gender Information Value Date Recorded Sex Assigned at Male 10/04/2021 10:52 AM EDT Legal Sex Male 1:02 PM EDT Gender Identity Male 10/04/2021 10:52 AM EDT Sexual Orientation Not on file documented as of this encounter Plan of Treatment Upcoming Encounters Date Type Department Care Team (Latest Contact Info) Description 12/02/2024 Procedure Pass [facility] Endoscopy Admitting Dept Virtual Department [address] [place] [address] 12/02/2024 1:00 PM EDT Hospital Encounter [facility] Endoscopy Admitting Dept Virtual Department [address] [place] [address] Bryson Ro MD [address] [place] [address] 12/02/2024 1:00 PM EDT - 12/02/2024 1:15 PM EDT Surgery [facility] Endoscopy Admitting Dept Virtual Department [address] [place] [address] Bryson Ro MD [address] [place] [address] [email or web address] ESOPHAGOGASTRODUODENOSCOPY Scheduled Procedures Name Priority Associated Diagnoses Date/Ti sc ESOPHAGOGASTRODUODENOSCOPY Anemia, unspecified type Alcoholic cirrhosis of liver with ascites 12/02/2024 1:00 PM EDT documented as of this encounter Results * Magnesium (02/06/2017 2:17 PM EST) Pathologist [facility] MAGNESIUM 1.7 1.6 - 2.6 mg/dL [facility] Blood 02/06/2017 2:17 PM EST 02/06/2017 2:25 PM EST us Luis A Phyllis DO LAB BLOOD ORDERABLES Final Resul t [address] [address] * Vitamin B1 (thiamine) (02/06/2017 2:17 PM EST) VITAMIN B1 120 70 - 180 nmol/L [facility]PERIOR Comment: (NOTE) ADDITIONAL INFORMATION This test was developed and its performance characteristics determined by [facility] in a manner consistent with CLIA requirements. This test has not been cleared or approved by the U.S. Food and Drug Administration. Blood 02/06/2017 2:17 PM EST 02/06/2017 2:25 PM EST us Luis A Bigda DO LAB BLOOD ORDERABLES Final [facility]ul t [facility] [address] [place] [address] * Vitamin B12 (02/06/2017 2:17 PM EST) VITAMIN B12 816 243 - 894 pg/mL [facility] Blood 02/06/2017 2:17 PM EST 02/06/2017 2:25 PM EST us Lusi A Bigda DO LAB BLOOD ORDERABLES Final Resul t Performing Organization Address City/[facility] Co de Phone Number [address] [address] * (ABNORMAL) CBC and differential (02/06/2017 2:17 PM EST) WBC 5.37 3.40 - 11.20 K/uL [facility] RBC 2.85(L) 4.50 - 5.50 M/uL [facility] HGB 9.4(L) 13.0 - 17.0 g/dL [facility] HCT 29.3(L) 40.0 - 51.0 % [facility] PLT 164 130 - 400 K/uL [facility] MCV 102.8(H) 79.0 - 98.0 fL [facility] MCH 33.0 27.0 - 34.8 pg [facility] MCHC 32.1 31.5 - 36.0 g/dL [facility] RDW 16.3(H) 10.8 - 14.6 % [facility] MPV 11.2 9.4 - 12.4 fl [facility] NRBC 0.00 /100 WBCs [facility] ABSOLUTE NRBC 0.00 K/uL [facility] DIFF METHOD Auto [facility] NEUTS 65.2 45.30 - 77.70 % [facility] LYMPHS 25.1 12.30 - 39.70 % [facility] MONOS 6.9 4.10 - 12.80 % [facility] EOS 2.0 0 - 7.2 % [facility] BASOS 0.6 0 - 2.80 % [facility] Granulocytes, immature (%) 0.2 0.0 - 0.9 % [facility] ABSOLUTE NEUTS 3.50 1.40 - 7.70 K/uL [facility] ABSOLUTE LYMPHS 1.35 0.60 - 3.20 K/uL [facility] ABSOLUTE MONOS 0.37 0.11 - 0.59 K/uL [facility] ABSOLUTE EOS 0.11 0.01 - 0.50 K/uL [facility] ABSOLUTE BASOS 0.03 0.00 - 0.08 K/uL [facility] Granulocytes, immature 0.01 0.00 - 0.05 K/uL [facility] Blood 02/06/2017 2:17 PM EST 02/06/2017 2:25 PM EST us Luis A Bigda DO LAB BLOOD ORDERABLES Final Resul t [address] [address] * (ABNORMAL) Comprehensive metabolic panel (02/06/2017 2:17 PM EST) SODIUM 144 133 - 146 mmol/L [facility] POTASSIUM 4.4 3.3 - 5.1 mmol/L [facility] CHLORIDE 106 96 - 108 mmol/L [facility] CO2 29 21 - 35 mmol/L [facility] BUN 10 6 - 19 mg/dL [facility] CREATININE 0.80 0.5 - 1.5 mg/dL [facility] GLUCOSE 120(H) 70 - 99 mg/dL [facility] ALBUMIN 2.5(L) 3.9 - 4.8 g/dL [facility] TOTAL PROTEIN 6.1(L) 6.5 - 8.0 g/dL [facility] CALCIUM 8.7 8.4 - 10.3 mg/dL [facility] ALKALINE PHOSPHATASE 111 39 - 117 U/L [facility] TOTAL BILIRUBIN 1.4(H) 0 - 1.2 mg/dL [facility] AST 57(H) 0 - 37 U/L [facility] ALT 13 0 - 40 U/L [facility] GLOBULIN 3.6 1 - 4.8 g/dL [facility] EGFR >60 60 - 1000 mL/min/1.7 3m2 [facility] Comment:Abnormal if <60. If patient is -Syrian, multiply the result by 1.21. ANION GAP 13 10 - 20 mmol/L [facility] Blood 02/06/2017 2:17 PM EST 02/06/2017 2:25 PM EST us Luis Ferguson DO LAB BLOOD ORDERABLES Final Resul t [facility] [address] [place] [address] documented in this encounter Visit Diagnoses Diagnosis Acute alcoholism- Primary Acute alcoholic intoxication, unspecified drinking behavior Localized edema Edema Neuropathy Mononeuritis of unspecified site Anemia, unspecified type Alcoholic cirrhosis of liver with ascites documented in this encounter Care Teams Instrument Lens Grinder Apprentice Relationship Specialty Start Date End Date Luis Ferguson DO [email or web address] PCP - General Internal Medicine 01/27/17 Reid Li DO [address] [place] [address] [email or web address] Hematology and Oncology 09/03/17 04/13/24 Luis Ferguson DO [address] [place] [address] [email or web address] Insurance Assigned Provider 08/03/18 03/08/19 Luis Ferguson DO [address] [place] [address] [email or web address] Insurance Assigned Provider 07/09/21 07/15/22 Margarita Guerra PA-C [address] [place] [email or web address] Physician Audiovisual Lead Technician 04/14/24 documented as of this encounter Additional Source Comments The information contained in this document represents components of the legal health record. It is not the complete legal health record.[facility]
[2024-10-28 13:34] LABS: Hematocrit 37.0 % (42.0-52.0); Hemoglobin 12.9 g/dl (14.0-18.0); Imm Gran Abs Auto 0.01 X10*3/uL (0.00-0.03); Imm Gran Pct Auto 0.2 % (0.0-0.4); Lymphocytes Absolute Auto 1.5 X10*3/uL (1.2-4.9); Mean Corpuscular HGB Conc 34.9 g/dl (31.0-36.0); Mean Corpuscular Hemoglobin 31.8 pg (27.0-33.0); Mean Corpuscular Volume 91.1 fL (80.0-98.0); NRBC Abs Auto 0.000 X10*3/uL (0.0-0.012); NRBC Pct Auto 0.0 /100WBC (0.0-0.2); Red Blood Count 4.06 X10*6/uL (4.60-5.80); White Blood Count 5.7 X10*3/uL (4.8-10.8)
[2024-10-28 13:35] LABS: MANUAL DIFF FLAG SCAN; Platelet Count 98 X10*3/uL (160-400)
[2024-10-28 13:51] LABS: Alanine Aminotransferase 26 U/L (0-40); Albumin Level 4.1 g/dL (3.5-5.0); Alkaline Phosphatase 68 U/L (39-117); Anion Gap 9 (12-20); Aspartate Amino Transferase 24 U/L (5-37); Blood Urea Nitrogen 18 mg/dL (9-16); Calcium 8.7 mg/dL (8.4-10.2); Carbon Dioxide 25 mmol/L (22-29); Chloride 111 mmol/L (96-108); Estimated Glomerular Filt Rate 46; Iron 72 mcg/dL (45-160); Percent Iron Saturation 31 % (15-50); Potassium 4.2 mmol/L (3.3-5.1); Sodium 141 mmol/L (135-145); Total Iron Binding Capacity 233 mcg/dL (228-428); Total Protein 6.4 g/dL (6.5-8.0); Unsaturated Iron Binding 161 ug/dL
[2024-10-28 13:58] LABS: Thyroid Stimulating Hormone 1.34 uIU/mL (0.32-4.0)
[2024-10-28 14:06] LABS: Vitamin B12 403 pg/mL (200-900)
== END 2024-10-28 10:47 | disposition home or self-care (01) ==
LOC: HO.MANLDS 10:46
PROVIDERS: Visit Provider Internal Medicine
DX: R53.82 Chronic fatigue, unspecified (principal)
CPT/HCPCS: 36415; 80053; 82306; 82607; 83540; 84403; 84443; 85025; 85652

== ENCOUNTER 2025-01-02 10:50 | Outpatient (REF) | payer MEDICARE, BC, SELFPAY ==
--- OUTSIDE RECORDS SUMMARY | 2021-10-21 11:34 | XMS_ITS | Encounter Summary ---
Author Organization [facility] Address [address] [place] [phone] Phone Care Team Providers Care Chief Yeoman Name Role Phone Marlenacelina Luis Martinez DO Primary Care Provider [phone] Reid Li DO Unavailable [phone] Luis Ferguson DO Unavailable Encounter Details Date Type Department Care Team (Late st Contact Info) Description 10/21/2021 11:34 AM EDT Hospital Encounter [facility] [address] [place] [id number] Ingrid Lombardo FNP [address] [place] [address] [email or web address] Social History Tobacco Use Types Packs/Day Years Used Date Smoking Tobacco: Former Cigarettes 1 15 1 - 1994 Smokeless Tobacco: Never Alcohol Use Standard Drinks/Week Comments Not Currently 0 (1 standard drink = 0.6 oz pur e alcohol) october of 2020 sober Education Answer Date Recorded Are you interested in more education? Not on ezekiel e 07/28/2022 Are you concerned about learning? Not on file 07/28/2022 No 07/28/2022 No 07/28/2022 Digital Access Answer Date Recorded No 08/29/2022 No 08/29/2022 Reliable internet access at home? Not on file 08/29/2022 Device with a working camera? Not on file Intimate Partner Violence Answer Date R ecorded Are you denied basic needs s uch as food, clothing, or medical care? No 11/21/2024 In the past 12 months have y ou been in a relationship with a person who hurts, threatens, or tries to control you? No 11/21/2024 Are you denied basic needs s uch as food, clothing, or medical care? No 11/21/2024 In the past 12 months have y ou been in a relationship with a person who hurts, threatens, or tries to control you? No 11/21/2024 Sex and Gender Information Value Date Recorded Sex Assigned at Male 10/04/2021 10:52 AM EDT Legal Sex Male 1:02 PM EDT Gender Identity Male 10/04/2021 10:52 AM EDT Sexual Orientation Not on file documented as of this encounter Plan of Treatment Upcoming Encounters Date Type Department Care Team (Late st Contact Info) Description 02/18/2025 10:00 AM EST Office Visit [facility] [address] [place] [phone] Unknown, Unknown, Coco Ashford, PERSONAL SECURITY SPECIALIST [address] [address] [email or web address] documented as of this encounter Procedures Procedure Name Priority Date/Time Associated Diagnosis Comments XR KNEE 4 OR MORE VIEWS (RIGHT) Urgent/patient waiting 10/21/2021 11:45 AM EDT Cellulitis of right leg documented in this encounter Results * XR KNEE 4 OR MORE VIEWS (RIGHT) (10/21/2021 11:45 AM EDT) Anatomical Region Laterality Modality Knee Right Computed Radiogr aphy 10/21/2021 11:4 8 AM EDT Impressions 10/21/2021 12:16 PM EDT No acute osseous abnormality. ATTESTATION: I, Chastity Clements as teaching physician, have reviewed the images for this case and if necessary edited the report originally created by Fernando Charles. Narrative 10/21/2021 12:16 PM EDT XR KNEE 4 OR MORE VIEWS (RIGHT) COMPARISON: None. FINDINGS: No acute fracture or dislocation. Mild degenerative changes. Joint effusion. Procedure Note Chastity Clements MD - 10/21/2021 XR KNEE 4 OR MORE VIEWS (RIGHT) COMPARISON: None. FINDINGS: No acute fracture or dislocation. Mild degenerative changes. Jointeffusion. IMPRESSION: No acute osseous abnormality. ATTESTATION: I, Chastity Clements as teaching physician, have reviewed theimages for this case and if necessary edited the report originally createdby Fernando Charles. us Ingrid Lombardo OUTREACH ASSOCIATE IMG XR LOWER EXTREMITY Melania l Result documented in this encounter Visit Diagnoses Not on filedocumented in this encounter Care Teams Chief Yeoman Relationship Specialty Start Date End Date Luis Ferguson DO [email or web address] PCP - General Internal Medicine 01/27/17 Reid Li DO [address] [place] [id number] [email or web address] Hematology and Oncology 09/03/17 04/13/24 Luis Ferguson DO [address] [place] [id number] [email or web address] Insurance Assigned Provider 07/09/21 07/15/22 documented as of this encounter Additional Source Comments The information contained in this document represents components of the legal health record. It is not the complete legal health record.[facility]
--- OUTSIDE RECORDS SUMMARY | 2024-12-29 15:22 | XMS_ITS | Encounter Summary ---
Author Organization [facility] Address [address] [place] [address] Phone Care Team Providers Care Mobile Engineer Name Role Phone Luis Ferguson DO Primary Care Provider [phone] Margarita Guerra PA-C Unavailable [phone] Encounter Details Date Type Department Care Team (Late st Contact Info) Description 12/29/2024 3:22 PM EDT - 12/29/2024 11:59 PM EDT Hospital Encounter [facility] Laboratory [address] [place] [address] Luis Ferguson DO [address] [facility] [address] [place] [address] [email or web address] Discharge Disposition: Home or Self Care Social History Tobacco Use Types Packs/Day Years [...] on file documented as of this encounter Medications at Time of Discharge DULoxetine (CYMBALTA) 30 MG capsule Take 1 capsule every day by oral route for 30 days. 09/12/2024 escitalopram oxalate (LEXAPRO) 5 MG tablet Take 5 mg by mouth daily. slime root (SLIME EXTRACT ORAL) Take by mouth. Medication-Free Text Beet root Medication-Free Text Lion's mel MILK THISTLE ORAL Take by mouth daily. multivitamin-mine rals-lutein (MULTIVITAMIN 50 PLUS) Tab daily. omeprazole (PRILOSEC) 20 MG capsule TAKE 1 CAPSULE BY MOUTH EVERY DAY 1/2 TO 1 HOUR BEFORE MORNING MEAL tadalafiL (CIALIS) 20 MG tablet Take 1 tablet every day by oral route for 12 days. 07/07/2022 TURMERIC ORAL Take by mouth. documented as of this encounter Plan of Treatment Upcoming Encounters Date Type Department Care Team (Late st Contact Info) Description 02/18/2025 10:00 AM EST Office Visit [facility] G[facility]ology [facility] [address] [place] [address] Unknown, Unknown, Coco Ashford, UI ARCHITECT [address] [address] [email or web address] documented as of this encounter Procedures Procedure Name Priority Date/Time Associated Diagnosis Comments CBC AND DIFFERENTIAL Routine 12/29/2024 3:26 PM EDT Encounter for general adult medical examination without abnormal findings documented in this encounter Results * (ABNORMAL) CBC and differential (12/29/2024 3:26 PM EDT) WBC 5.95 4.00 - 11.00 K/uL [facility] RBC 3.98(L) 4.50 - 5.90 M/uL [facility] HGB 12.7(L) 13.5 - 17.5 g/dL [facility] HCT 36.9(L) 41.0 - 53.0 % [facility] PLT 108(L) 150 - 450 K/uL [facility] MCV 92.7 80.0 - 100.0 fL [facility] MCH 31.9(H) 27.0 - 31.0 pg [facility] MCHC 34.4 32.0 - 36.0 g/dL [facility] RDW 12.8 11.5 - 14.5 % [facility] MPV 11.4 8.4 - 12.0 fL [facility] NRBC 0.00 0.00 /100 WBCs [facility] ABSOLUTE NRBC 0.00 0.00 K/uL [facility] DIFF METHOD Auto [facility] NEUTS 56.1 48.0 - 76.0 % [facility] LYMPHS 30.1 18.0 - 41.0 % [facility] MONOS 8.2 4.0 - 11.0 % [facility] EOS 4.4 0.0 - 5.0 % [facility] BASOS 0.7 0.0 - 1.5 % [facility] Granulocytes, immature (%) 0.5 0.0 - 0.9 % [facility] ABSOLUTE NEUTS 3.34 1.92 - 7.60 K/uL [facility] ABSOLUTE LYMPHS 1.79 0.72 - 4.10 K/uL [facility] ABSOLUTE MONOS 0.49 0.16 - 1.10 K/uL [facility] ABSOLUTE EOS 0.26 0.00 - 0.50 K/uL [facility] ABSOLUTE BASOS 0.04 0.00 - 0.15 K/uL [facility] Granulocytes, immature 0.03 0.00 - 0.09 K/uL [facility] Blood 12/29/2024 3:26 PM EDT 12/29/2024 3:29 PM EDT us Luis Martinez Phyllis VAS[facility] LAB BLOOD ORDERABLES Final Resul t [facility] [address] [place] [address] documented in this encounter Visit Diagnoses Diagnosis Encounter for general adult medical examination without abnormal findings documented in this encounter Care Teams Mobile Engineer Relationship Specialty Start Date End Date Luis Ferguson DO PCP - General Internal Medicine 01/27/17 Margarita Guerra PA-C [address] [place] [address] Physician Surface Plate Inspector 04/14/24 documented as of this encounter Additional Source Comments The information contained in this document represents components of the legal health record. It is not the complete legal health record.[facility]
--- OUTSIDE RECORDS SUMMARY | 2025-01-02 11:56 | XMS_ITS | Encounter Summary ---
Author Organization [facility] Address [address] [place] [address] Phone Care Team Providers Care Director Data Name Role Phone MarlenaLuis patrick Primary Care Provider [phone] Reid Li DO Unavailable [phone] Luis Ferguson DO Unavailable Luis Ferguson DO Unavailable Margarita Guerra PA-C Unavailable [phone] Encounter Details Date Type Department Care Team (Late st Contact Info) Description 04/06/2017 Ancillary Orders Virtual Department [address] [place] [address] Mariam Devi PA-C [address] [place] [address] Abnormal LFTs Social History Tobacco Use Types Packs/Day Years [...] Description 02/18/2025 10:00 AM EST Office Visit [facility] Gastroenterology Clinic [address] [place] [address] Unknown, Unknown, Coco Ashford, DIRECTOR TRANSLATIONAL [address] [facility] [address] [place] [address] [email or web address] documented as of this encounter Results * US ABDOMEN LIMITED RIGHT UPPER QUADRANT (04/13/2017 7:52 AM EST) Anatomical Region Laterality Modality Abdomen Ultrasound 04/13/2017 8:02 AM EST Impressions 04/13/2017 8:05 AM EST Gallbladder lumen filled with echogenic material suspected to represent sludge and possible small calculi. Hyperechoic parenchymal echo-texture consistent with fatty infiltration, without evidence of biliary obstruction or other significant abnormality of the visualized upper abdominal visceral structures. POS [id number] Narrative 04/13/2017 8:05 AM EST COMPARISON: None FINDINGS: Echogenic non-shadowing material appears to be present in the gallbladder lumen, possibly reflecting sludge, with posterior acoustic shadowing raising the possibility of associated underlying calculi. No gross gallbladder wall thickening or pericholecystic fluid collections present. The intrahepatic bile ducts are nondilated and the common duct within normal limits 0.3 cm in diameter. The liver is within normal limits in size and displays a hyperechoic parenchymal echo-texture suggesting fatty infiltration without focal mass apparent. The pancreas and visualized portions of the proximal abdominal aorta and IVC are within normal limits in size and sonographic appearance as is the right kidney. Procedure Note Suad Hook MD - 04/13/2017 COMPARISON: None FINDINGS: Echogenic non-shadowing material appears to be present in the gallbladderlumen, possibly reflecting sludge, with posterior acoustic shadowingraising the possibility of associated underlying calculi. No grossgallbladder wall thickening or pericholecystic fluid collections present.The intrahepatic bile ducts are nondilated and the common duct withinnormal limits 0.3 cm in diameter. The liver is within normal limits in size and displays a hyperechoicparenchymal echo-texture suggesting fatty infiltration without focal massapparent. The pancreas and visualized portions of the proximal abdominalaorta and IVC are within normal limits in size and sonographic appearanceas is the right kidney. IMPRESSION: Gallbladder lumen filled with echogenic material suspected to representsludge and possible small calculi. Hyperechoic parenchymal echo-textureconsistent with fatty infiltration, without evidence of biliaryobstruction or other significant abnormality of the visualized upperabdominal visceral structures. POS [id number] us July Shandra MARTINS IMG US ABDOMEN Final Result documented in this encounter Visit Diagnoses Diagnosis Abnormal LFTs Abnormal LFTs documented in this encounter Care Teams Director Data Relationship Specialty Start Date End Date Luis Ferguson DO PCP - General Internal Medicine 01/27/17 Reid Li DO [address] [place] [address] [email or web address] Hematology and Oncology 09/03/17 04/13/24 Luis Ferguson DO [address] [place] [address] Insurance Assigned Provider 08/03/18 03/08/19 Luis Ferguson DO [address] [place] [address] Insurance Assigned Provider 07/09/21 07/15/22 Margarita Guerra PA-C [address] [place] [address] Physician Duct Installer 04/14/24 documented as of this encounter Additional Source Comments The information contained in this document represents components of the legal health record. It is not the complete legal health record.[facility]
--- OUTSIDE RECORDS SUMMARY | 2025-01-02 11:56 | XMS_ITS | Encounter Summary ---
Author Organization [facility] Address [address] [place] [address] Phone Care Team Providers Care Moving Consultant Name Role Phone MarlenaLuis patrick Primary Care Provider [phone] Reid Li DO Unavailable [phone] Luis Ferguson DO Unavailable Luis Ferguson Juan DO Unavailable Margarita Guerra PA-C Unavailable [phone] Encounter Details Date Type Department Care Team (Latest Contact Info) Description 03/14/2017 Transcribe Orders [facility] [address] [place] [address] Mariam Devi PA-C [address] [place] [address] Anemia, unspecified type (Primary Dx); Elevated LFTs Social History Tobacco Use Types Packs/Day [...] Description 02/18/2025 10:00 AM EST Office Visit [facility] [address] [place] [address] Unknown, Unknown, Coco Ashford, TELESALES ADVISOR [address] [address] [email or web address] documented as of this encounter Results * Vitamin B12 (03/14/2017 10:39 AM EST) VITAMIN B12 592 243 - 894 pg/mL [facility] Blood 03/14/2017 10:3 9 AM EST 03/14/2017 12:27 PM EST [facility] LAB BLOOD ORDERABLES Final R esult Performing Organization Address City/[facility]/ZIP Co de Phone Number [address] [address] * Iron and iron binding capacity (03/14/2017 10:39 AM EST) IRON 77 45 - 160 ug/dL [facility] IRON BINDING CAPACITY 230 228 - 428 ug/dL [facility] TRANSFERRIN SATURAT. 33 20 - 55 % [facility] Blood 03/14/2017 10:3 9 AM EST 03/14/2017 12:27 PM EST Mariam [facility] LAB BLOOD ORDERABLES Final R esult [address] [address] * (ABNORMAL) Folate (03/14/2017 10:39 AM EST) FOLIC ACID >20.0(H) 4.2 - 19.9 ng/mL [facility] Blood 03/14/2017 10:3 9 AM EST 03/14/2017 12:27 PM EST [facility] LAB BLOOD ORDERABLES Final R esult [address] [address] * (ABNORMAL) Ferritin (03/14/2017 10:39 AM EST) FERRITIN 1,013(H) 30 - 400 ug/L [facility] Blood 03/14/2017 10:3 9 AM EST 03/14/2017 12:27 PM EST July Shandra MARTINS LAB BLOOD ORDERABLES Final R esult Performing Organization Address [facility]/ZIP Co de Phone Number [address] [address] * (ABNORMAL) CBC and differential (03/14/2017 10:39 AM EST) Pathologist [facility] WBC 6.19 3.40 - 11.20 K/uL [facility] RBC 3.67(L) 4.50 - 5.50 M/uL [facility] HGB 11.7(L) 13.0 - 17.0 g/dL [facility] HCT 35.3(L) 40.0 - 51.0 % [facility] PLT 132 130 - 400 K/uL [facility] MCV 96.2 79.0 - 98.0 [facility] MCH 31.9 27.0 - 34.8 pg [facility] MCHC 33.1 31.5 - 36.0 g/dL [facility] RDW 13.4 10.8 - 14.6 % [facility] MPV 11.0 9.4 - 12.4 [facility] NRBC 0.00 /100 WBCs [facility] ABSOLUTE NRBC 0.00 K/uL [facility] DIFF METHOD Auto [facility] NEUTS 51.6 45.30 - 77.70 % [facility] LYMPHS 32.0 12.30 - 39.70 % [facility] MONOS 8.9 4.10 - 12.80 % [facility] EOS 6.0 0 - 7.2 % [facility] BASOS 1.0 0 - 2.80 % [facility] Granulocytes, immature (%) 0.5 0.0 - 0.9 % [facility] ABSOLUTE NEUTS 3.20 1.40 - 7.70 K/uL [facility] ABSOLUTE LYMPHS 1.98 0.60 - 3.20 K/uL [facility] ABSOLUTE MONOS 0.55 0.11 - 0.59 K/uL [facility] ABSOLUTE EOS 0.37 0.01 - 0.50 K/uL [facility] ABSOLUTE BASOS 0.06 0.00 - 0.08 K/uL [facility] Granulocytes, immature 0.03 0.00 - 0.05 K/uL [facility] Blood 03/14/2017 10:3 9 AM EST 03/14/2017 12:27 PM EST [facility] LAB BLOOD ORDERABLES Final R esult Performing Organization Address City/[facility] Co de Phone Number [address] [address] * Hepatitis B core antibody, total (03/14/2017 10:39 AM EST) HEP B CORE AB, TOT Negative Negative [facility] Blood 03/14/2017 10:3 9 AM EST 03/14/2017 12:27 PM EST Mariam [facility] LAB BLOOD ORDERABLES Final R esult Performing Organization Address City/[facility] Co de Phone Number [address] [address] * Hepatitis B surface antibody (03/14/2017 10:39 AM EST) HBV SURFACE ANTIBODY INDETERMINATE [facility] Comment:Patient should be re tested at a later time. Blood 03/14/2017 10:3 9 AM EST 03/14/2017 12:27 PM EST [facility] LAB BLOOD ORDERABLES Final R esult Performing Organization Address City/[facility]/ZIP Co de Phone Number [address] [address] * Hepatitis B surface antigen (03/14/2017 10:39 AM EST) HBV SURFACE ANTIGEN Negative Negative [facility] Blood 03/14/2017 10:3 9 AM EST 03/14/2017 12:27 PM EST July Shandra MARTINS LAB BLOOD ORDERABLES Final R esult [address] [address] * (ABNORMAL) Lipid panel (03/14/2017 10:39 AM EST) Pathologist [facility] HDL 32 mg/dL [facility] Comment: Interpretation: Risk Level Males Decreased >45 mg/dL Average 40-45 mg/dL Increased <40 mg/dL CHOLESTEROL 176 0 - 240 mg/dL [facility] TRIGLYCERIDES 173(H) 30 - 160 mg/dL [facility] LDL 109 50 - 129 mg/dL [facility] Comment: LDL levels in terms of risk for coronary heart disease: <100 mg/dL: Optimal 100-129 mg/dL: Near or above optimal 130-159 mg/dL: Borderline high 160-189 mg/dL: High >190 mg/dL: Very High CARDIAC RISK RATIO 5.5(H) 3.4 - 5.0 [facility] Blood 03/14/2017 10:3 9 AM EST 03/14/2017 12:27 PM EST us July Shandra MARTINS LAB BLOOD ORDERABLES Final R esult [address] [address] * (ABNORMAL) Comprehensive metabolic panel (03/14/2017 10:39 AM EST) SODIUM 142 133 - 146 mmol/L [facility] POTASSIUM 4.6 3.3 - 5.1 mmol/L [facility] CHLORIDE 102 96 - 108 mmol/L [facility] CO2 28 21 - 35 mmol/L [facility] BUN 12 6 - 19 mg/dL [facility] CREATININE 0.70 0.5 - 1.5 mg/dL [facility] GLUCOSE 97 70 - 99 mg/dL [facility] ALBUMIN 3.5(L) 3.9 - 4.8 g/dL [facility] TOTAL PROTEIN 6.8 6.5 - 8.0 g/dL [facility] CALCIUM 9.5 8.4 - 10.3 mg/dL [facility] ALKALINE PHOSPHATASE 101 39 - 117 U/L [facility] TOTAL BILIRUBIN 0.9 0 - 1.2 mg/dL [facility] AST 45(H) 0 - 37 U/L [facility] ALT 27 0 - 40 U/L [facility] GLOBULIN 3.3 1 - 4.8 g/dL [facility] EGFR >60 >60 mL/min/1.7 3m2 [facility] Comment:Abnormal if <60. If patient is -Senegalese, multiply the result by 1.21. ANION GAP 17 10 - 20 mmol/L [facility] Blood 03/14/2017 10:3 9 AM EST 03/14/2017 12:27 PM EST July Shandra MARTINS LAB BLOOD ORDERABLES Final R esult Performing Organization Address City/State/[facility] Co de Phone Number [facility] [address] [place] [address] documented in this encounter Visit Diagnoses Diagnosis Anemia, unspecified type- Primary Elevated LFTs Other abnormal blood chemistry documented in this encounter Care Teams Moving Consultant Relationship Specialty Start Date End Date Luis Ferguson DO [email or web address] PCP - General Internal Medicine 01/27/17 Reid Li DO [address] [place] [address] [email or web address] Hematology and Oncology 09/03/17 04/13/24 Luis Ferguson DO [address] [place] [address] [email or web address] Insurance Assigned Provider 08/03/18 03/08/19 Luis Ferguson DO [address] [place] [address] [email or web address] Insurance Assigned Provider 07/09/21 07/15/22 Margarita Guerra PA-C [address] [place] [address] [email or web address] Physician Stove Mounter 04/14/24 documented as of this encounter Additional Source Comments The information contained in this document represents components of the legal health record. It is not the complete legal health record.[facility]
--- OUTSIDE RECORDS SUMMARY | 2025-01-02 11:56 | XMS_ITS | Encounter Summary ---
Author Organization [facility] Address [address] [place] [address] Phone Care Team Providers Care Condenser Setter Name Role Phone Luis Ferguson DO Primary Care Provider [phone] Reid Li DO Unavailable [phone] Luis Ferguson DO Unavailable Luis Ferguson DO Unavailable Margarita Guerra PA-C Unavailable [phone] Encounter Details Date Type Department Care Team (Late st Contact Info) Description 02/06/2017 Transcribe Orders [facility] Laboratory [address] [place] [address] Luis Ferguson DO [address] [facility] [place] [address] [place] [address] Acute alcoholism (Primary Dx); Localized edema; Neuropathy [...] Description 02/18/2025 10:00 AM EST Office Visit [facility] Gastroenterology Clinic 10 [place] [address] Unknown, Unknown, Coco Ashford, DIRECTOR PRIVATE [address] [address] [email or web address] documented as of this encounter Results * Magnesium (02/06/2017 2:17 PM EST) MAGNESIUM 1.7 1.6 - 2.6 mg/dL [facility] Blood 02/06/2017 2:17 PM EST 02/06/2017 2:25 PM EST us Luis Ferguson DO LAB BLOOD ORDERABLES Final Resul t Performing Organization Address [facility] [[email or web address]] Co de Phone Number [facility] [address] [place] [address] * Vitamin B1 (thiamine) (02/06/2017 2:17 PM EST) VITAMIN B1 120 70 - 180 nmol/L [facility] Comment: (NOTE) ADDITIONAL INFORMATION This test was developed and its performance characteristics determined by [facility] in a manner consistent with CLIA requirements. This test has not been cleared or approved by the U.S. Food and Drug Administration. Blood 02/06/2017 2:17 PM EST 02/06/2017 2:25 PM EST us Luis A Bigda DO LAB BLOOD ORDERABLES Final Resul t [facility] [address] [place] [address] * Vitamin B12 (02/06/2017 2:17 PM EST) VITAMIN B12 816 243 - 894 pg/mL [facility] Blood 02/06/2017 2:17 PM EST 02/06/2017 2:25 PM EST us Luis Juan Bigda DO LAB BLOOD ORDERABLES Final Resul t [facility] [address] [place] [address] * (ABNORMAL) CBC and differential (02/06/2017 2:17 PM EST) WBC 5.37 3.40 - 11.20 K/uL [facility] RBC 2.85(L) 4.50 - 5.50 M/uL [facility] HGB 9.4(L) 13.0 - 17.0 g/dL [facility] HCT 29.3(L) 40.0 - 51.0 % [facility] PLT 164 130 - 400 K/uL [facility] MCV 102.8(H) 79.0 - 98.0 fL [facility] MCH 33.0 27.0 - 34.8 pg [facility] MCHC 32.1 31.5 - 36.0 g/dL [facility] RDW 16.3(H) 10.8 - 14.6 % [facility] MPV 11.2 9.4 - 12.4 fl [facility] NRBC 0.00 /100 WBCs [facility] ABSOLUTE NRBC 0.00 K/uL [facility] DIFF METHOD Auto [facility] NEUTS 65.2 45.30 - 77.70 % [facility] LYMPHS 25.1 12.30 - 39.70 % [facility] MONOS 6.9 4.10 - 12.80 % [facility] EOS 2.0 0 - 7.2 % [facility] BASOS 0.6 0 - 2.80 % [facility] Granulocytes, immature (%) 0.2 0.0 - 0.9 % [facility] ABSOLUTE NEUTS 3.50 1.40 - 7.70 K/uL [facility] ABSOLUTE LYMPHS 1.35 0.60 - 3.20 K/uL [facility] ABSOLUTE MONOS 0.37 0.11 - 0.59 K/uL [facility] ABSOLUTE EOS 0.11 0.01 - 0.50 K/uL [facility] ABSOLUTE BASOS 0.03 0.00 - 0.08 K/uL [facility] Granulocytes, immature 0.01 0.00 - 0.05 K/uL [facility] Blood 02/06/2017 2:17 PM EST 02/06/2017 2:25 PM EST us Luis A Bigda DO LAB BLOOD ORDERABLES Final Resul t [facility] [address] [place] [address] * (ABNORMAL) Comprehensive metabolic panel (02/06/2017 2:17 PM EST) SODIUM 144 133 - 146 mmol/L [facility] POTASSIUM 4.4 3.3 - 5.1 mmol/L [facility] CHLORIDE 106 96 - 108 mmol/L [facility] CO2 29 21 - 35 mmol/L [facility] BUN 10 6 - 19 mg/dL [facility] CREATININE 0.80 0.5 - 1.5 mg/dL [facility] GLUCOSE 120(H) 70 - 99 mg/dL [facility] ALBUMIN 2.5(L) 3.9 - 4.8 g/dL [facility] TOTAL PROTEIN 6.1(L) 6.5 - 8.0 g/dL [facility] CALCIUM 8.7 8.4 - 10.3 mg/dL [facility] ALKALINE PHOSPHATASE 111 39 - 117 U/L [facility] TOTAL BILIRUBIN 1.4(H) 0 - 1.2 mg/dL [facility] AST 57(H) 0 - 37 U/L [facility] ALT 13 0 - 40 U/L [facility] GLOBULIN 3.6 1 - 4.8 g/dL [facility] EGFR >60 60 - 1000 mL/min/1.7 3m2 [facility] Comment:Abnormal if <60. If patient is -[place]ao Tome[place], multiply the result by 1.21. ANION GAP 13 10 - 20 mmol/L [facility] Blood 02/06/2017 2:17 PM EST 02/06/2017 2:25 PM EST us Luis Martinez Phyllis VASQUES LAB BLOOD ORDERABLES Final Resul t [address] [address] documented in this encounter Visit Diagnoses Diagnosis Acute alcoholism- Primary Acute alcoholic intoxication, unspecified drinking behavior Localized edema Edema Neuropathy Mononeuritis of unspecified site documented in this encounter Care Teams Condenser Setter Relationship Specialty Start Date End Date Luis Ferguson DO PCP - General Internal Medicine 01/27/17 Reid Li DO [address] [place] [address] [email or web address] Hematology and Oncology 09/03/17 04/13/24 Luis Ferguson DO [address] [place] [address] Insurance Assigned Provider 08/03/18 03/08/19 Luis Ferguson DO [address] [place] [address] Insurance Assigned Provider 07/09/21 07/15/22 Margarita Guerra PA-C [address] [place] [id number] [email or web address] Physician Lye Peel Operator 04/14/24 documented as of this encounter Additional Source Comments The information contained in this document represents components of the legal health record. It is not the complete legal health record.[facility]
--- OUTSIDE RECORDS SUMMARY | 2025-01-02 11:57 | XMS_ITS | Encounter Summary ---
Author Organization [facility] Address [address] [place] [address] Phone Care Team Providers Care Lab Pack Chemist Name Role Phone Phyllis Luis Martinez DO Primary Care Provider [phone] Reid Li DO Unavailable [phone] Luis Ferguson DO Unavailable Margarita Guerra PA-C Unavailable [phone] Encounter Details Date Type Department Care Team (Late st Contact Info) Description 01/18/2021 Procedure Pass [facility] [address] [place] [address] Social History Tobacco Use Types Packs/Day Years Used Date Smoking Tobacco: Former Cigarettes 1 15 - 1994 Smokeless Tobacco: Never Alcohol Use Standard Drinks/Week Comments Not Currently 0 (1 standard drink = 0.6 oz pure alcohol) one month ago vodka 7-8 nips per day Sex and Gender Information Value Date Recorded Sex Assigned at Male 10/04/2021 10:52 AM EDT Legal Sex Male 1:02 PM EDT Gender Identity Male 10/04/2021 10:52 AM EDT Sexual Orientation Not on file documented as of this encounter Plan of Treatment Upcoming Encounters Date Type Department Care Team (Late Contact Info) Description 02/18/2025 10:00 AM EST Office Visit [facility]astroenterology [facility] [address] [place], [place] [id number] Unknown, Unknown, Coco Ashford, SHOWER ATTENDANT [address] [address] [email or web address] documented as of this encounter Visit Diagnoses Not on filedocumented in this encounter Care Teams Lab Pack Chemist Relationship Specialty Start Date End Date Luis Ferguson DO PCP - General Internal Medicine 01/27/17 Reid Li DO [address] [place] [address] [email or web address] Hematology and Oncology 09/03/17 04/13/24 Luis Ferguson DO [address] [place] [address] Insurance Assigned Provider 07/09/21 07/15/22 Margarita Guerra PA-C [address] [place] [phone] [email or web address] Physician Solar Tech 04/14/24 documented as of this encounter Additional Source Comments The information contained in this document represents components of the legal health record. It is not the complete legal health record.[facility]
--- OUTSIDE RECORDS SUMMARY | 2025-01-02 11:57 | XMS_ITS | Encounter Summary ---
Author Organization [facility] Address [address] [place] [address] Phone Care Team Providers Care Fence Erector Name Role Phone MarlenaLuis patrick Primary Care Provider [phone] Reid Li DO Unavailable [phone] Luis Ferguson DO Unavailable Luis Ferguson Juan DO Unavailable Margarita Guerra PA-C Unavailable [phone] Encounter Details Date Type Department Care Team (Latest Contact Info) Description 04/23/2018 Transcribe Orders [facility] [address] [place] [address] Mariam Devi PA-C [address] [place] [address] Encounter for general adult medical examination with abnormal findings (Primary Dx) Social History Tobacco Use Types Packs/Day Years Used Date Smoking Tobacco: Former Cigarettes 1 15 1 980 - 1994 Smokeless Tobacco: Never Alcohol Use Standard Drinks/Week Comments No 0 [...] Description 02/18/2025 10:00 AM EST Office Visit [facility] Gastroenterology Clinic [address] [place] [address] Unknown, Unknown, Coco Ashford, MARKET RISK ANALYST [address] [address] [email or web address] documented as of this encounter Results * CBC and differential (04/23/2018 8:04 AM EST) WBC 7.97 3.40 - 11.20 K/uL [facility] RBC 4.56 4.50 - 5.50 M/uL [facility] HGB 14.1 13.0 - 17.0 g/dL [facility] HCT 41.7 40.0 - 51.0 % [facility] PLT 145 130 - 400 K/uL [facility] MCV 91.4 79.0 - 98.0 fL [facility] MCH 30.9 27.0 - 34.8 pg [facility] MCHC 33.8 31.5 - 36.0 g/dL [facility] RDW 12.8 10.8 - 14.6 % [facility] MPV 11.6 9.4 - 12.4 fl [facility] NRBC 0.00 0.00 /100 WBCs [facility] ABSOLUTE NRBC 0.00 0.00 K/uL [facility] DIFF METHOD Auto [facility] NEUTS 60.6 45.30 - 77.70 % [facility] LYMPHS 29.0 12.30 - 39.70 % [facility] MONOS 6.5 4.10 - 12.80 % [facility] EOS 2.9 0 - 7.2 % [facility] BASOS 0.6 0 - 2.80 % [facility] Granulocytes, immature (%) 0.4 0.0 - 0.9 % [facility] ABSOLUTE NEUTS 4.83 1.40 - 7.70 K/uL [facility] ABSOLUTE LYMPHS 2.31 0.60 - 3.20 K/uL [facility] ABSOLUTE MONOS 0.52 0.11 - 0.59 K/uL [facility] ABSOLUTE EOS 0.23 0.01 - 0.50 K/uL [facility] ABSOLUTE BASOS 0.05 0.00 - 0.08 K/uL [facility] Granulocytes, immature 0.03 0.00 - 0.05 K/uL [facility] Blood 04/23/2018 8:04 AM EST 04/23/2018 8:15 AM EST July Shandra MARTINS LAB BLOOD ORDERABLES Final R esult [address] [address] * (ABNORMAL) Lipid panel (04/23/2018 8:04 AM EST) HDL 34 mg/dL [facility] Comment: Interpretation <40 mg/dL: Low HDL cholesterol (major risk factor for CHD) Greater than or equal to 60 mg/dL: High HDL cholesterol ( negative risk factor for CHD) HDL - cholesterol is affected by a number of factors, e.g. smoking, excerise, hormones, sex and age. CHOLESTEROL 159 0 - 240 mg/dL [facility] TRIGLYCERIDES 173(H) 30 - 160 mg/dL [facility] LDL 90 50 - 129 mg/dL [facility] Comment: LDL levels in terms of risk for coronary heart disease: <100 mg/dL: Optimal 100-129 mg/dL: Near or above optimal 130-159 mg/dL: Borderline high 160-189 mg/dL: High >190 mg/dL: Very High CARDIAC RISK RATIO 4.7 3.4 - 5.0 [facility] Blood 04/23/2018 8:04 AM EST 04/23/2018 8:15 AM EST us July Shandra MARTINS LAB BLOOD ORDERABLES Final R esult [address] [address] * Hepatitis C antibody, qualitative (04/23/2018 8:04 AM EST) HCV Negative Negative [facility] Comment: This is a screening test and should be confirmed with molecular testing Blood 04/23/2018 8:04 AM EST 04/23/2018 8:15 AM EST Mariam [facility] LAB BLOOD ORDERABLES Final R esult [address] [address] * PSA (screening) (04/23/2018 8:04 AM EST) PSA 2.06 0 - 4.00 ng/mL [facility] Blood 04/23/2018 8:04 AM EST 04/23/2018 8:15 AM EST [facility] LAB BLOOD ORDERABLES Final R esult Performing Organization Address City[facility] Co de Phone Number [address] [address] * (ABNORMAL) Comprehensive metabolic panel (04/23/2018 8:04 AM EST) SODIUM 144 133 - 146 mmol/L [facility] POTASSIUM 4.4 3.3 - 5.1 mmol/L [facility] CHLORIDE 107 96 - 108 mmol/L [facility] CO2 28 21 - 35 mmol/L [facility] BUN 20(H) 6 - 19 mg/dL [facility] CREATININE 1.00 0.5 - 1.5 mg/dL [facility] GLUCOSE 118(H) 70 - 99 mg/dL [facility] ALBUMIN 4.0 3.9 - 4.8 g/dL [facility] TOTAL PROTEIN 6.5 6.5 - 8.0 g/dL [facility] CALCIUM 9.2 8.4 - 10.3 mg/dL [facility] ALKALINE PHOSPHATASE 77 39 - 117 U/L [facility] TOTAL BILIRUBIN 0.5 0.0 - 1.2 mg/dL [facility] AST 24 0 - 37 U/L [facility] ALT 31 0 - 40 U/L [facility] GLOBULIN 2.5 1 - 4.8 g/dL [facility] EGFR 81 >59 mL/min/1.7 3m2 [facility] Comment:If patient is black, multiply result by 1.159. Estimated glomerular filtration rate calculated using the CKD-EPI equation. ANION GAP 13 10 - 20 mmol/L [facility] Blood 04/23/2018 8:04 AM EST 04/23/2018 8:15 AM EST July Shandra MARTINS LAB BLOOD ORDERABLES Final R esult [facility] [address] [place] [address] documented in this encounter Visit Diagnoses Diagnosis Encounter for general adult medical examination with abnormal findings- Primary documented in this encounter Care Teams Fence Erector Relationship Specialty Start Date End Date Luis Ferguson DO PCP - General Internal Medicine 01/27/17 Reid Li DO [address] [place] [address] [email or web address] Hematology and Oncology 09/03/17 04/13/24 Luis Ferguson DO [address] [place] [address] Insurance Assigned Provider 08/03/18 03/08/19 Luis Ferguson DO [address] [place] [address] Insurance Assigned Provider 07/09/21 07/15/22 Margarita Guerra PA-C [address] [place] [address] Physician Economic Research Analyst 04/14/24 documented as of this encounter Additional Source Comments The information contained in this document represents components of the legal health record. It is not the complete legal health record.[facility]
--- OUTSIDE RECORDS SUMMARY | 2025-01-02 11:57 | XMS_ITS | Encounter Summary ---
Author Organization [facility] Address [address] [place] [address] Phone Care Team Providers Care Switching Clerk Name Role Phone Phyllis Luis Martinez DO Primary Care Provider [phone] Reid Li DO Unavailable [phone] Luis Ferguson DO Unavailable Margarita Guerra PA-C Unavailable [phone] Encounter Details Date Type Department Care Team (Late st Contact Info) Description 01/21/2021 Procedure Pass [facility] Cardiovascular And Interventional Radiology 30 [place] [address] Social History Tobacco Use Types Packs/Day Years [...] Description 02/18/2025 10:00 AM EST Office Visit [facility] 10 [place], [place] [id number] Unknown, Unknown, Coco Ashford, CIVIL ENGINEERING DESIGN DRAFTSPERSON [address] [address] [email or web address] documented as of this encounter Visit Diagnoses Not on filedocumented in this encounter Care Teams Switching Clerk Relationship Specialty Start Date End Date Luis Ferguson DO PCP - General Internal Medicine 01/27/17 Reid Li DO [address] [place] [address] [email or web address] Hematology and Oncology 09/03/17 04/13/24 Luis Ferguson DO [address] [place] [address] Insurance Assigned Provider 07/09/21 07/15/22 Margarita Guerra PA-C [address] [place] [address] Physician Pediatric Urologist 04/14/24 documented as of this encounter Additional Source Comments The information contained in this document represents components of the legal health record. It is not the complete legal health record.[facility]
--- OUTSIDE RECORDS SUMMARY | 2025-01-02 11:57 | XMS_ITS | Encounter Summary ---
Author Organization [facility] Address [address] [place] [address] Phone Care Team Providers Care Cap Cutter Name Role Phone Phyllis Luis Martinez DO Primary Care Provider [phone] Reid Li DO Unavailable [phone] Luis Ferguson DO Unavailable Margarita Guerra PA-C Unavailable [phone] Encounter Details Date Type Department Care Team (Latest Contact Info) Description 07/06/2021 Transcribe Orders Virtual Department 30 [place] [address] Bryson Ro MD [address] [place] [address] [email or web address] Cirrhosis of liver with ascites, unspecified hepatic cirrhosis type (Primary Dx) Social History Tobacco Use Types Packs/Day Years Used Date Smoking Tobacco: Former Cigarettes 1 15 - 1994 Smokeless Tobacco: Never Alcohol Use Standard Drinks/Week Comments Not Currently 0 (1 standard drink = 0.6 oz pur e alcohol) october of 2020 sober Sex and Gender Information Value Date Recorded Sex Assigned at Male 10/04/2021 10:52 AM EDT Legal Sex Male 1:02 PM EDT Gender Identity Male 10/04/2021 10:52 AM EDT Sexual Orientation Not on file documented as of this encounter Plan of Treatment Upcoming Encounters Date Type Department Care Team (Late st Contact Info) Description 02/18/2025 10:00 AM EST Office Visit [facility] Gastroenterology Clinic 10 [facility] [place] [address] Unknown, Unknown, Coco Ashford, MANAGER HYDRAULIC 10 [facility] 2 [place] [address] [email or web address] documented as of this encounter Results * US ABDOMEN LIMITED RIGHT UPPER QUADRANT (07/21/2021 11:55 AM EDT) Anatomical Region Laterality Modality Abdomen Ultrasound 07/21/2021 12:0 1 PM EDT Impressions 07/21/2021 12:10 PM EDT 1.No focal liver lesions. 2.Cholelithiasis. Narrative 07/21/2021 12:10 PM EDT US ABDOMEN LIMITED RIGHT UPPER QUADRANT TECHNIQUE: US Abdominal limited right upper quadrant. COMPARISON: 01/15/2021 FINDINGS: Liver: Coarsened in echotexture. No focal lesions. Main Portal Vein: Patent with normal direction of flow. Gallbladder: Gallbladder is underdistended. Multiple gallstones and small amount of sludge. Mild to moderate gallbladder wall thickening. No pericholecystic fluid. Sonographic Machado's sign: negative. Biliary: Normal. No intrahepatic or extrahepatic biliary ductal dilatation. The common bile duct measures 5 mm. Visualized portions of the pancreas are unremarkable No hydronephrosis in the right kidney. Procedure Note Leticia Velazco MD - 07/21/2021 US ABDOMEN LIMITED RIGHT UPPER QUADRANT TECHNIQUE: US Abdominal limited right upper quadrant. COMPARISON: 01/15/2021 FINDINGS: Liver: Coarsened in echotexture. No focal lesions. Main Portal Vein: Patent with normal direction of flow. Gallbladder: Gallbladder is underdistended. Multiple gallstones and smallamount of sludge. Mild to moderate gallbladder wall thickening. Nopericholecystic fluid. Sonographic Machado's sign: negative. Biliary: Normal. No intrahepatic or extrahepatic biliary ductaldilatation. The common bile duct measures 5 mm. Visualized portions of the pancreas are unremarkable No hydronephrosis in the right kidney. IMPRESSION: 1.No focal liver lesions. 2.Cholelithiasis. us Bryson Ro MD [facility] [place]OMEN Final Result documented in this encounter Visit Diagnoses Diagnosis Cirrhosis of liver with ascites, unspecified hepatic cirrhosis type- Primary Cirrhosis of liver with ascites, unspecified hepatic cirrhosis type documented in this encounter Care Teams Cap Cutter Relationship Specialty Start Date End Date Luis Ferguson DO PCP - General Internal Medicine 01/27/17 Reid Li DO [address] [place] [address] [email or web address] Hematology and Oncology 09/03/17 04/13/24 Luis Ferguson DO [address] [place] [address] Insurance Assigned Provider 07/09/21 07/15/22 Margarita Guerra PA-C [address] [place] [address] Physician Manager Retail Sales 04/14/24 documented as of this encounter Additional Source Comments The information contained in this document represents components of the legal health record. It is not the complete legal health record.[facility]
--- OUTSIDE RECORDS SUMMARY | 2025-01-02 11:57 | XMS_ITS | Encounter Summary ---
Author Organization [facility] Address [address] [place] [address] Phone Care Team Providers Care Document Control Clerk Name Role Phone Phyllis Luis Martinez DO Primary Care Provider [phone] Reid Li DO Unavailable [phone] Luis Ferguson DO Unavailable Margarita Guerra PA-C Unavailable [phone] Encounter Details Date Type Department Care Team (Late st Contact Info) Description 01/17/2021 Procedure Pass [facility] Cardiovascular And Interventional Radiology 30 [place] [address] Social History Tobacco Use Types Packs/Day Years [...] Description 02/18/2025 10:00 AM EST Office Visit [facility] Gastroenterology Clinic 10 [place], [place] [phone] Unknown, Unknown, Coco Ashford, REAL ESTATE VALUER [address] [address] [email or web address] documented as of this encounter Visit Diagnoses Not on filedocumented in this encounter Care Teams Document Control Clerk Relationship Specialty Start Date End Date Luis Ferguson DO PCP - General Internal Medicine 01/27/17 Reid Li DO [address] [place] [address] [email or web address] Hematology and Oncology 09/03/17 04/13/24 Luis Ferguson DO [address] [place] [address] Insurance Assigned Provider 07/09/21 07/15/22 Margarita Guerra PA-C [address] [place] [address] Physician Salesperson Jewelry 04/14/24 documented as of this encounter Additional Source Comments The information contained in this document represents components of the legal health record. It is not the complete legal health record.[facility]
--- OUTSIDE RECORDS SUMMARY | 2025-01-02 11:57 | XMS_ITS | Encounter Summary ---
Author Organization [facility] Address [address] [place] [address] Phone Care Team Providers Care Assistant Superintendent Name Role Phone Luis Ferguson DO Primary Care Provider [phone] Reid Li DO Unavailable [phone] Luis Ferguson DO Unavailable Margarita Guerra PA-C Unavailable [phone] Encounter Details Date Type Department Care Team (Late st Contact Info) Description 01/17/2021 Procedure Pass [facility] Endoscopy Admitting Dept Virtual Department 30 [place] [address] Social History Tobacco Use Types Packs/Day Years [...] 02/18/2025 10:00 AM EST Office Visit [facility] Gastroenterology Clinic 10 [place], [place] [phone] Unknown, Unknown, Coco Ashford, SECURITY MANAGER [address] [address] [email or web address] documented as of this encounter Visit Diagnoses Not on filedocumented in this encounter Care Teams Assistant Superintendent Relationship Specialty Start Date End Date Luis Ferguson DO PCP - General Internal Medicine 01/27/17 Reid Li DO [address] [place] [address] [email or web address] Hematology and Oncology 09/03/17 04/13/24 Luis Ferguson DO [address] [place] [address] Insurance Assigned Provider 07/09/21 07/15/22 Margarita Guerra PA-C 30 [place] [address] Physician Chyron Operator 04/14/24 documented as of this encounter Additional Source Comments The information contained in this document represents components of the legal health record. It is not the complete legal health record.[facility]
--- OUTSIDE RECORDS SUMMARY | 2025-01-02 11:57 | XMS_ITS | Encounter Summary ---
Author Organization [facility] Address [address] [place] [address] Phone Care Team Providers Care Beef Specialist Name Role Phone Phyllis Luis Martinez DO Primary Care Provider [phone] Reid Li DO Unavailable [phone] Luis Ferguson DO Unavailable Margarita Guerra PA-C Unavailable [phone] Encounter Details Date Type Department Care Team (Late st Contact Info) Description 01/21/2021 Procedure Pass [facility] Cardiovascular And Interventional Radiology 30 [place] [address] Social History Tobacco Use Types Packs/Day Years [...] Description 02/18/2025 10:00 AM EST Office Visit [facility] Gastroenterology Clinic 10 [place], [place] [phone] Unknown, Unknown, Coco Ashford, CAUL PULLER [address] [address] [email or web address] documented as of this encounter Visit Diagnoses Not on filedocumented in this encounter Care Teams Beef Specialist Relationship Specialty Start Date End Date Luis Ferguson DO PCP - General Internal Medicine 01/27/17 Reid Li DO [address] [place] [address] [email or web address] Hematology and Oncology 09/03/17 04/13/24 Luis Ferguson DO [address] [place] [address] Insurance Assigned Provider 07/09/21 07/15/22 Margarita Guerra PA-C [address] [place] [address] Physician Pilot Plant Technician 04/14/24 documented as of this encounter Additional Source Comments The information contained in this document represents components of the legal health record. It is not the complete legal health record.[facility]
--- OUTSIDE RECORDS SUMMARY | 2025-01-02 11:57 | XMS_ITS | Clinical Summary ---
Author Organization [facility] it Address [address] [place] [address] Care Team Providers Care Director Religious Education Name Role Phone Luis Ferguson Primary Care Provider [phone] Social History Tobacco Use Types Packs/Day Years [...] 2007 Zoster Vaccines (1 of 2) 2007 Depression Screening 04/02/2024 COVID-19 Vaccine ( - 2023-2 5 season) 2024 Influenza Vaccine (#1) 2024 RSV Immunization Adult [...] Documents on File Type Date Recorded Patient Back Tender Cloth Printing Expl anation Health Care Decision (hx) 02/12/2021 SKYLER ODELL DIRECTIVE Care Teams Director Religious Education Relationship Specialty Start Date End Date Luis Ferguson DO [address] [facility] [address] [place], [place] PCP - General Internal Medicine 07/08/18
--- OUTSIDE RECORDS SUMMARY | 2025-01-02 11:57 | XMS_ITS | Encounter Summary ---
Author Organization [facility] Address [address] [place] [address] Phone Care Team Providers Care Aerial Gunner Name Role Phone MarlenacelinaLuis DO Primary Care Provider [phone] Reid Li DO Unavailable [phone] Margarita Guerra PA-C Unavailable [phone] Encounter Details Date Type Department Care Team (Late st Contact Info) Description 11/14/2022 Procedure Pass [facility] Endoscopy Admitting Dept Virtual Department 30 [place] [address] Social History Tobacco Use Types Packs/Day Years Used Date Smoking Tobacco: Former Cigarettes 1 - 1994 Smokeless Tobacco: Never Alcohol [...] as food, clothing, or medical care? No 10/18/2022 In the past 12 months have y ou been in a relationship with a person who hurts, threatens, or tries to control you? No 10/18/2022 Are you denied basic needs s uch as food, clothing, or medical care? No 10/18/2022 In the past 12 months have y ou been in a relationship with a person who hurts, threatens, or tries to control you? No 10/18/2022 Sex and Gender Information Value Date Recorded [...] Visit [facility] Gastroenterology Clinic 10 [place] [address] Unknown, Unknown, Coco Ashford, ASIAN ART CURATOR [address] [address] [email or web address] documented as of this encounter Visit Diagnoses Not on filedocumented in this encounter Care Teams Aerial Gunner Relationship Specialty Start Date End Date Luis Ferguson DO PCP - General Internal Medicine 01/27/17 Reid Li DO [address] [place] [address] [email or web address] Hematology and Oncology 09/03/17 04/13/24 Margarita Guerra PA-C 30 [place] [address] Physician Logistics Lead 04/14/24 documented as of this encounter Additional Source Comments The information contained in this document represents components of the legal health record. It is not the complete legal health record.[facility]
--- OUTSIDE RECORDS SUMMARY | 2025-01-02 11:57 | XMS_ITS | Encounter Summary ---
Author Organization [facility] Address [address] [place] [address] Phone Care Team Providers Care Poultry Hatchery Supervisor Name Role Phone Phyllis Luis Martinez DO Primary Care Provider [phone] Reid Li DO Unavailable [phone] Luis Ferguson DO Unavailable Margarita Guerra PA-C Unavailable [phone] Encounter Details Date Type Department Care Team (Late st Contact Info) Description 01/18/2021 Procedure Pass [facility] Cardiovascular And Interventional Radiology 30 [place] [address] Social History Tobacco Use Types Packs/Day Years [...] Description 02/18/2025 10:00 AM EST Office Visit [facility] Gastroenterology Clinic 10 [place], [place] [phone] Unknown, Unknown, Coco Ashford, STRAINER CLEANER [address] [place] [address] [address] [email or web address] documented as of this encounter Visit Diagnoses Not on filedocumented in this encounter Care Teams Poultry Hatchery Supervisor Relationship Specialty Start Date End Date Luis Ferguson DO PCP - General Internal Medicine 01/27/17 Reid Li DO [address] [place] [address] [email or web address] Hematology and Oncology 09/03/17 04/13/24 Luis Ferguson DO [address] [place] [address] Insurance Assigned Provider 07/09/21 07/15/22 Margarita Guerra PA-C [address] [place] [address] Physician Client Evaluator 04/14/24 documented as of this encounter Additional Source Comments The information contained in this document represents components of the legal health record. It is not the complete legal health record.[facility]
--- OUTSIDE RECORDS SUMMARY | 2025-01-02 11:57 | XMS_ITS | Encounter Summary ---
Author Organization [facility] Address [address] [place] [address] Phone Care Team Providers Care Factory Process Workers Name Role Phone Luis Ferguson DO Primary Care Provider [phone] Reid Li DO Unavailable [phone] Luis Ferguson DO Unavailable Margarita Guerra PA-C Unavailable [phone] Encounter Details Date Type Department Care Team (Late st Contact Info) Description 11/15/2021 Procedure Pass [address] [place] [address] Social History Tobacco Use Types Packs/Day Years [...] on file documented as of this encounter Last Filed Vital Signs Vital Sign Reading Time Taken Comments Blood Pressure - - Pulse - - Temperature - - Respiratory Rate - - Oxygen Saturation - - Inhaled Oxygen Concentration - - Weight 90.7 kg (200 lb) 11/17/2021 7:11 PM EDT Height 185.4 cm (6' 1 ) 11/17/2021 7:11 PM EDT Body Mass Index 26.39 11/17/2021 7:11 PM EDT documented in this encounter Plan of Treatment Upcoming Encounters Date Type Department Care Team (Late st Contact Info) Description 02/18/2025 10:00 AM EST Office Visit [facility] Gastroenterology Clinic 10 [place] [address] Unknown, Unknown, MD Camejo, Coco Ruiz, MOLD CHIPPER [address] [address] [email or web address] documented as of this encounter Visit Diagnoses Not on filedocumented in this encounter Care Teams Factory Process Workers Relationship Specialty Start Date End Date Luis Ferguson DO PCP - General Internal Medicine 01/27/17 Reid Li DO [address] [place] [address] [email or web address] Hematology and Oncology 09/03/17 04/13/24 Luis Ferguson DO [address] [place] [address] Insurance Assigned Provider 07/09/21 07/15/22 Margarita Guerra PA-C [address] [place] [address] Physician Cosmetology Teacher 04/14/24 documented as of this encounter Additional Source Comments The information contained in this document represents components of the legal health record. It is not the complete legal health record.[facility]
--- OUTSIDE RECORDS SUMMARY | 2025-01-02 11:57 | XMS_ITS | Encounter Summary ---
Author Organization [facility] Address [address] [place] [address] Phone Care Team Providers Care Lace Burn Out Tender Name Role Phone Luis Ferguson DO Primary Care Provider [phone] Reid Li DO Unavailable [phone] Luis Ferguson DO Unavailable Margarita Guerra PA-C Unavailable [phone] Encounter Details Date Type Department Care Team (Late st Contact Info) Description 09/28/2021 Procedure Pass [place] Admitting Dept - Virtual Department 30 [place] [address] Social History Tobacco Use Types Packs/Day Years [...] 02/18/2025 10:00 AM EST Office Visit [facility] Gastroenterology Clinic 10 [place], [place] [phone] Unknown, Unknown, Coco Ashford, HOSPITAL FELLOW [address] [address] [email or web address] documented as of this encounter Visit Diagnoses Not on filedocumented in this encounter Care Teams Lace Burn Out Tender Relationship Specialty Start Date End Date Luis Ferguson DO [email or web address] PCP - General Internal Medicine 01/27/17 Reid Li DO [address] [place] [address] [email or web address] Hematology and Oncology 09/03/17 04/13/24 Luis Ferguson DO [address] [place] [address] Insurance Assigned Provider 07/09/21 07/15/22 Margarita Guerra PA-C 30 [place] [address] Physician Sql Engineer 04/14/24 documented as of this encounter Additional Source Comments The information contained in this document represents components of the legal health record. It is not the complete legal health record.[facility]
--- OUTSIDE RECORDS SUMMARY | 2025-01-02 11:57 | XMS_ITS | Encounter Summary ---
Author Organization [facility] Address [address] [place] [address] Phone Care Team Providers Care Knapsack Sprayer Name Role Phone Luis Ferguson DO Primary Care Provider [phone] Reid Li DO Unavailable [phone] Luis Ferguson DO Unavailable Margarita Guerra PA-C Unavailable [phone] Encounter Details Date Type Department Care Team (Late st Contact Info) Description 09/22/2021 Procedure Pass [facility] Endoscopy Admitting Dept Virtual Department 30 [place] [address] Social History Tobacco Use Types Packs/Day Years [...] Description 02/18/2025 10:00 AM EST Office Visit [facility] Gastroenterology Clinic 10 [place] [address] Unknown, Unknown, Coco Ashford, DEBURRER [address] [address] [email or web address] documented as of this encounter Visit Diagnoses Not on filedocumented in this encounter Care Teams Knapsack Sprayer Relationship Specialty Start Date End Date Luis Ferguson DO [email or web address] PCP - General Internal Medicine 01/27/17 Reid Li DO [address] [place] [address] [email or web address] Hematology and Oncology 09/03/17 04/13/24 Luis Ferguson DO [address] [place] [address] Insurance Assigned Provider 07/09/21 07/15/22 Margarita Guerra PA-C 30 [place] [address] Physician Fire Engine Pump Operator 04/14/24 documented as of this encounter Additional Source Comments The information contained in this document represents components of the legal health record. It is not the complete legal health record.[facility]
--- OUTSIDE RECORDS SUMMARY | 2025-01-02 11:57 | XMS_ITS | Encounter Summary ---
Author Organization [facility] Address [address] [place] [phone] Phone Care Team Providers Care Taximeter Repairer Name Role Phone MarlenaLuis patrick Juan VASQUES Primary Care Provider [phone] Reid Li DO Unavailable [phone] Margarita Guerra PA-C Unavailable [phone] Encounter Details Date Type Department Care Team (Latest Contact Info) Description 11/01/2022 Transcribe Orders Virtual Department [address] [place] [address] Marcella Mercedes PA-C [address] [place] [address] [email or web address] Alcoholic liver disease (Primary Dx) Social History Tobacco Use Types [...] Office Visit [facility] [address] [place] [phone] Unknown, Unknown, Coco Ashford, MAINTENANCE SPECIALIST [address] [place] [phone] [email or web address] documented as of this encounter Results * US ABDOMEN LIMITED RIGHT UPPER QUADRANT (01/10/2023 9:29 AM EDT) Anatomical Region Laterality Modality Abdomen Ultrasound 01/10/2023 10:0 0 AM EDT Impressions 01/10/2023 10:00 AM EDT Cirrhotic morphology. No liver lesions are seen Narrative 01/10/2023 10:00 AM EDT US ABDOMEN LIMITED RIGHT UPPER QUADRANT TECHNIQUE: US Abdominal limited right upper quadrant. COMPARISON: July 07, 2022 FINDINGS: Liver: Cirrhotic morphology. No focal lesions. Main Portal Vein: Patent with normal direction of flow. Gallbladder: Normal. No gallstones or gallbladder wall thickening. Machado's Sign: Negative. Biliary: Normal. No intrahepatic or extrahepatic biliary ductal dilatation. The common bile duct measures 5 mm. Procedure Note Tono Saez MD, GARCÍA - 01/10/2023 US ABDOMEN LIMITED RIGHT UPPER QUADRANT TECHNIQUE: US Abdominal limited right upper quadrant. COMPARISON: July 07, 2022 FINDINGS: Liver: Cirrhotic morphology. No focal lesions. Main Portal Vein: Patent with normal direction of flow. Gallbladder: Normal. No gallstones or gallbladder wall thickening. Machado's Sign: Negative. Biliary: Normal. No intrahepatic or extrahepatic biliary ductaldilatation. The common bile duct measures 5 mm. IMPRESSION: Cirrhotic morphology. No liver lesions are seen Marcella Mercedes PA-C IMG US ABDOMEN Final Result documented in this encounter Visit Diagnoses Diagnosis Alcoholic liver disease- Primary Unspecified alcoholic liver damage Alcoholic liver disease Unspecified alcoholic liver damage documented in this encounter Care Teams Taximeter Repairer Relationship Specialty Start Date End Date Luis Ferguson DO [email or web address] PCP - General Internal Medicine 01/27/17 Reid Li DO [address] [place] [phone] [email or web address] Hematology and Oncology 09/03/17 04/13/24 Margarita Guerra PA-C [address] [place] [phone] [email or web address] [employer] [employer] Director 04/14/24 documented as of this encounter Additional Source Comments The information contained in this document represents components of the legal health record. It is not the complete legal health record.[facility]
--- OUTSIDE RECORDS SUMMARY | 2025-01-02 11:57 | XMS_ITS | Clinical Summary ---
Author Organization [facility] Address [address] [place] [address] Phone Care Team Providers Care Heat Regulator Name Role Phone Lurdes Santos Juan VASQUES Primary Care Provider [phone] Margarita Guerra PA-C Unavailable [phone] Allergies No known active allergies Medications slime root (SLIME EXTRACT ORAL) Take by mouth. Active multivitamin-mi nerals-lutein (MULTIVITAMIN 50 PLUS) Tab daily. Active MILK THISTLE ORAL Take by mouth daily. Active escitalopram oxalate (LEXAPRO) 5 MG tablet Take 5 mg by mouth daily. Active tadalafiL (CIALIS) 20 MG tablet Take 1 tablet every day by oral route for 12 days. 07/07/2022 Active Medication-Free Text Beet root Active TURMERIC ORAL Take by mouth. Active Medication-Free Text Lion's mel Active omeprazole (PRILOSEC) 20 MG capsule TAKE 1 CAPSULE BY MOUTH EVERY DAY 1/2 TO 1 HOUR BEFORE MORNING MEAL Active DULoxetine (CYMBALTA) 30 MG capsule Take 1 capsule every day by oral route for 30 days. 09/12/2024 Active Active Problems Problem Noted Date Diagnosed Date Platelets decreased 06/10/2024 S/P laparoscopic cholecystectomy 01/04/2022 Splenomegaly 11/15/2021 Elevated LFTs 11/15/2021 S/P inguinal hernia repair using synthetic patch 10/11/2021 Constipation 02/01/2021 Assessment & Plan (02/01/2021 12:45 PM EDT): Add MiraLAX twice daily, senna nightly and Colace daily Discharge planning issues 01/29/2021 Assessment & Plan (02/01/2021 12:44 PM EDT): Awaiting placement Hyponatremia 01/27/2021 Assessment & Plan (02/01/2021 12:43 PM EDT): Patient with a baseline hyponatremia. -Monitor COVID-19 vaccine administered 01/18/2021 Assessment & Plan (01/18/2021 10:08 AM EDT): - J+J on 01/18 Symptomatic anemia 01/14/2021 Assessment & Plan (02/04/2021 4:22 PM EDT): status post 2 units transfused this admission, hemoglobin stable since - EGD 01/17 showed portal hypertensive gastropathy and very severe esophagitis -Treating with carafate and bid ppi - needs follow-up endoscopy in 8 weeks (could not rule out small varices) as an outpatient -Hemoglobin 7.9 Decompensated hepatic cirrhosis 01/14/2021 Assessment & Plan (02/04/2021 4:21 PM EDT): Presented with shortness of breath, edema. Ultrasound cirrhotic liver , large ascites -Paracentesis performed on 01/15, 01/18, 01/21, 02/01 3700 removed -Started on Lasix/Aldactone in the hospital. Increased Lasix over weekend to 80 and increased Aldactone to 200 -Daily weights -Continue Lactulose Pressure injury of sacral region, stage 2 2020 Assessment & Plan (02/01/2021 12:43 PM EDT): cont wound care and pressure ulcer precautions, one has healed, still one unstageble pressure ulcer sacrum -Oxycodone 5mg PRN for severe pain from the pressure wounds Venous insufficiency of both lower extremities 0 09/20/2018 Depression Assessment & Plan (01/18/2021 10:07 AM EDT): -seen by social work Protein-calorie malnutrition Assessment & Plan (02/01/2021 12:43 PM EDT): Nutrition recommendations appreciated Alcohol dependence Insomnia Assessment & Plan (01/15/2021 1:38 PM EDT): - trial melatonin Ascites Resolved Problems Problem Noted Date Diagnosed Date Resolved Date Calculus of gallbladder with acute on chronic cholecystitis without obstruction 11/15/20212021 Electrolyte abnormality 01/01 Encounters Date Type Department Care Team Description 12/29/2024 3:22 PM EDT - 12/29/2024 11:59 PM EDT Hospital Encounter [facility] [address] [place] [address] Lurdes Santos, DO Discharge Disposition: Home or Self Care 12/29/2024 Transcribe Orders [facility] [address] [place] [address] Lurdes Santos, Encounter for general adult medical examination without abnormal findings (Primary Dx) 12/02/2024 1:00 PM EDT - 12/02/2024 1:15 PM EDT Surgery [facility] Endoscopy Admitting Dept Virtual Department [address] [place] [address] Bryson Guzman MD ESOPHAGOGASTRODUODENOSCOPY 12/02/2024 12:45 PM EDT Anesthesia Event [facility] Endoscopy Admitting Dept Virtual Department [address] [place] [address] Lurdes Sanchez MD 12/02/2024 11:59 AM EDT - 12/02/2024 1:28 PM EDT Hospital Encounter [facility] Endoscopy Admitting Dept Virtual Department [address] [place] [address] Bryson Guzman MD Discharge Disposition: Home or Self Care 12/02/2024 Procedure Pass [facility] Endoscopy Admitting Dept Virtual Department [address] [place] [address] 11/21/2024 11:30 AM EDT Pre-Admission Testing Pre Procedure Evaluation [address] [place] [address] Bryson Guzman MD 11/06/[address] [facility] [address] [place] [address] Terry Machado MD, PhD from Last 3 Months Immunizations Immunization Administration Dates Next Due COVID-19 (Pre-01/22) [place] Vaccine, rS-Ad26, P F 01/18/2021 Influenza Quadrivalent Preservative Free IM 11/0 07/2020 Zoster recombinant 08/08/2022,05/02/2022 Social History Tobacco Use Types Packs/Day Years Used Date Smoking Tobacco: Former Cigarettes 1 15 1 - 1994 Smokeless Tobacco: Never Tobacco Cessation:Counseling Given: Not Answered Alcohol Use Standard Drinks/Week Comments Not Currently [...] AM EDT Sexual Orientation Not on file Last Filed Vital Signs Vital Sign Reading Time Taken Comments Blood Pressure 112/65 12/02/2024 1:08 PM EDT Pulse 60 12/02/2024 1:08 PM EDT Temperature 36.3 C (97.3 F) 12/02/2024 12:58 PM EDT Respiratory Rate 19 12/02/2024 1:08 PM EDT Oxygen Saturation 100% 12/02/2024 1:08 PM EDT Inhaled Oxygen Concentration - - Weight 93 kg (205 lb) 08/20/2024 1:31 PM EDT Height 182.9 cm (6') 08/20/2024 1:31 PM EDT Body Mass Index 27.8 08/20/2024 1:31 PM EDT Plan of Treatment Upcoming Encounters Date Type Department Care Team (Late st Contact Info) Description 02/18/2025 10:00 AM EST Office Visit [facility] [address] [place] [address] Unknown, Unknown, Coco Ashford, CORPORATE ADMINISTRATIVE ASSISTANT [address] [address] [email or web address] Health Maintenance Due Date Last Done Comments Adult Td,Tdap Booster 1955 DEPRESSION SCREENING 1969 HEPATITIS A VACCINES (1 of 2 - Risk 2-dose series) 1976 PNEUMOCOCCAL VACCINES (50+ years) (1 of 2 - PCV) 1976 COLOGUARD 2002 FOBT 2002 SIGMOIDOSCOPY 2002 VIRTUAL COLONOSCOPY 2002 RSV VACCINE (1 - Risk 60-74 years 1-dose series) 2017 INFLUENZA VACCINE (#1) 2024 02/03/2021 COVID-19 VACCINE (2 - season) 2024 01/18/2021 FIT TEST 06/06/2025 06/06/2024 LIPID PANEL 01/31/2027 01/31/2022, 11/0 04/2021, 04/23/2018, Additional history exists SCREENING FOR DIABETES 05/12/2027 05/12/2024, 2018 COLONOSCOPY 10/18/2032 10/18/2022 COLORECTAL CANCER SCREENING 10/18/2032 ZOSTER VACCINES Completed 08/08/2022, 05/02/2022 ABDOMINAL AORTIC ANEURYSM (AAA) SCREENING Completed 04/17/2024, 11/02/2021 HEPATITIS C SCREENING Completed 04/23/2024 , 04/23/2018, 04/23/2018 SMOKING STATUS SCREENING (Once After 26 Yrs) Completed 12/02/2024 HIB VACCINES Aged Out No longer eligi ble based on patient's age to complete this topic MENINGOCOCCAL VACCINES (ACWY) Aged Out No longer eligible based on patient's age to complete this topic MENINGOCOCCAL VACCINES (B) Aged Out N o longer eligible based on patient's age to complete this topic Medical Devices Implanted Type Area Interlocking Tower Operator Device Identifier Shelf Expiration Date Model / Serial / Lot Mesh Mesh Umbilical Mesh Graft 1.6x1.9in 4.1 4.8cm Lg Perfix Polypropylene Monofilament Plug Inguinal Hernia Soft Tissue Repair Cs/2ea - [id number] Implanted:Qty: 1 on 09/28/2021 by Simran Meza MD at [facility] STANDARD Right: Groin DAVOL 02/27/2026 [id number] / / [id number] Clip Hemostasis 360deg 235cm Resolution 360 Latex Free 2.8mm Channel Bx/20ea - [id number] Implanted:Qty: 2 on 10/18/2022 by Bryson Guzman MD at [facility] BioPoly 3 / / Description:sigmoid Procedures Procedure Name Priority Date/Time Associated Diagnosis Comments CBC AND DIFFERENTIAL Routine 12/29/2024 3:26 PM EDT Encounter for general adult medical examination without abnormal findings WI EGD ABLATE TUMOR POLYP/LESION W/DILATION& WIRE 12/02/2024 12:46 PM EDT Anemia, unspecified type Alcoholic cirrhosis of liver with ascites WI EDG TRANSORAL BIOPSY SINGLE/MULTIPLE 12/02/2024 12:46 PM EDT Anemia, unspecified type Alcoholic cirrhosis of liver with ascites WI ESOPHAGOGASTRODUODENOSCOP Y TRANSORAL DIAGNOSTIC 12/02/2024 12:46 PM EDT Anemia, unspecified type Alcoholic cirrhosis of liver with ascites ENDOSCOPY PROCEDURE 12/02/2024 12:40 PM EDT ANATOMIC PATHOLOGY Routine 12/02/2024 12:00 AM EDT HC BLOOD OCCULT FECAL HGB DE TER IA QUAL FECES 1-3 Routine 06/06/2024 3:31 PM EST Anemia, unspecified type Alcoholic cirrhosis, unspecified whether ascites present HEPATITIS C ANTIBODY, QUALITATIVE Routine 04/23/2024 3:[address] ABDOMEN/PELVIS WITHOUT CONTRAST Routine 04/17/2024 12:17 PM EST RUQ pain ENDOSCOPY, COLON 10/18/2022 9:30 AM EDT LIPID PANEL Routine 01/31/2022 2:19 PM EDT Hyperlipidemia, unspecified hyperlipidemia type from Last 3 Months or Most Recently Relevant to Health Maintenance Results * (ABNORMAL) CBC and differential (12/29/2024 3:26 PM EDT) WBC 5.95 4.00 - 11.00 K/uL [facility] RBC 3.98(L) 4.50 - 5.90 M/uL [facility] HGB 12.7(L) 13.5 - 17.5 g/dL [facility] HCT 36.9(L) 41.0 - 53.0 % [facility] PLT 108(L) 150 - 450 K/uL [facility] MCV 92.7 80.0 - 100.0 fL [facility] MCH 31.9(H) 27.0 - 31.0 pg [facility] MCHC 34.4 32.0 - 36.0 g/dL [facility] RDW 12.8 11.5 - 14.5 % [facility] MPV 11.4 8.4 - 12.0 fL [facility] NRBC 0.00 0.00 /100 WBCs [facility] ABSOLUTE NRBC 0.00 0.00 K/uL [facility] DIFF METHOD Auto [facility] NEUTS 56.1 48.0 - 76.0 % [facility] LYMPHS 30.1 18.0 - 41.0 % [facility] MONOS 8.2 4.0 - 11.0 % [facility] EOS 4.4 0.0 - 5.0 % [facility] BASOS 0.7 0.0 - 1.5 % [facility] Granulocytes, immature (%) 0.5 0.0 - 0.9 % [facility] ABSOLUTE NEUTS 3.34 1.92 - 7.60 K/uL [facility] ABSOLUTE LYMPHS 1.79 0.72 - 4.10 K/uL [facility] ABSOLUTE MONOS 0.49 0.16 - 1.10 K/uL [facility] ABSOLUTE EOS 0.26 0.00 - 0.50 K/uL [facility] ABSOLUTE BASOS 0.04 0.00 - 0.15 K/uL [facility] Granulocytes, immature 0.03 0.00 - 0.09 K/uL [facility] Blood 12/29/2024 3:26 PM EDT 12/29/2024 3:29 PM EDT us Lurdes Santos DO LAB BLOOD ORDERABLES Final Resul t [facility] [address] [place] [address] * ENDOSCOPY PROCEDURE (12/02/2024 12:40 PM EDT) Narrative Transcriptions Bryson Guzman MD - 12/02/2024 12:40 PM EDT [facility] Patient Name: Naomi Rivera Attending MD:: BRYSON GUZMAN MD, , Procedure Date: 12/02/2024 12:40 PM Date of : 1955 Age: 69 Admit Type: Outpatient Gender: Male Room: [place] [address] Referring MD: LURDES SANTOS DO Exam Type: Upper GI endoscopy Indications: Follow-up of peptic ulcer Medications: Monitored Anesthesia Care Procedure: Informed consent was obtained from the patientafter discussion of the indications, limitations, alternatives, benefits, and risks of the procedure. Risks specifically discussed include but are not limited to medication reactions, missed lesions, bleeding, perforation, or the need for emergent surgery. Throughout the procedure, the patient's blood pressure, pulse, end-tidal CO2, and oxygensaturations were monitored continuously. The Olympus gastroscope [id number]-[id number] # 5 wasintroduced through the mouth, and advanced to the second partof duodenum. The upper GI endoscopy was accomplished without difficulty. The patient tolerated the procedure well. Complications: No immediate complications. Estimated blood loss: Minimal. Findings: The examined duodenum was normal. A small hiatal hernia was present. Localized mildly erythematous mucosa withoutbleeding was found in the gastric antrum. Biopsies weretaken with a cold forceps for histology. The exam of the stomach was otherwise normal. 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 The maximum longitudinal extent of these mucosal changes was 1 cm inlength. The exam of the esophagus was otherwise normal. Impression: - Normal examined duodenum. - Small hiatal hernia. - Erythematous mucosa in the antrum. Biopsied. - Esophageal mucosal changes secondary toestablished Mathews's disease. Recommendation: - Await pathology results. - Discharge patient to home. - Repeat upper endoscopy in 2 years for surveillance. BRYSON GUZMAN MD, 12/02/2024 12:59:25 PM This report has been signed electronically. Number of Addenda: 0 Note Initiated On: 12/02/2024 12:40 PM Procedure Code(s): --- Professional --- 53401, Esophagogastroduodenoscopy, flexible, transoral; with biopsy, single or multiple --- Technical --- 91099, Esophagogastroduodenoscopy, flexible, transoral; with biopsy, single or multiple Diagnosis Code(s): --- Professional --- K22.70, Mathews's esophagus without dysplasia K44.9, Diaphragmatic hernia without obstruction or gangrene K31.89, Other diseases of stomach and duodenum K27.9, Peptic ulcer, site unspecified, unspecifiedas acute or chronic, without hemorrhage orperforation --- Technical --- K22.70, Mathews's esophagus without dysplasia K44.9, Diaphragmatic hernia without obstruction or gangrene K31.89, Other diseases of stomach and duodenum K27.9, Peptic ulcer, site unspecified, unspecifiedas acute or chronic, without hemorrhage orperforation CPT copyright 2021 [employer]. All rights reserved. The codes documented in this report are preliminary and upon doctor of dental medicine reviewmay be revised to meet current compliance requirements. Procedure Date: 12/02/2024 12:40:[address] [place], [place] [id number] us Lurdes A Bigda DO GI PROCEDURE ORDERABLES Final Re sult * Anatomic Pathology (12/02/2024 12:00 AM EDT) 12/02/2024 12/02/2024 2:4 1 PM EDT Narrative SEE NARRATIVE - 12/03/2024 12:07 PM EDT [address] [address] Product/Device Technologist: Brooks Galindo MD Surgical Pathology Report FINAL PATHOLOGIC DIAGNOSIS: STOMACH ANTRUM, BIOPSY: No pathologic abnormality. Electronically Signed Out By Brooks Galindo MD By his/her signature above, the pathologist listed as making the Final Diagnosis certifies that he/she has personally reviewed this case and confirmed or corrected the diagnosis. CLINICAL HISTORY Anemia, unspecified type [D64.9] Alcoholic cirrhosis of liver with ascites [K70.31] Follow-up of peptic ulcer. SPECIMENS SUBMITTED: A: STOMACH ANTRUM, BIOPSY GROSS DESCRIPTION STOMACH ANTRUM, BIOPSY: Received in formalin is a 0.5 x 0.3 x 0.2 cm irregular portion of good-pink soft tissue which is submitted in toto in a single cassette labeled A1. Grossed by: LYNDA Akbar PA(ASCP) [id number] 12/02/2024 Grossing Staff: [id number] Patient Name: NAOMI RIVERA : 1955 (Age: 69) Sex: M Institution: [facility] Location: [facility] Date of Operation: 12/02/2024 Date of Reported: 12/03/2024 12:07 Results To: Bryson Guzman MD, BS, [place] Lurdes Santos DO, BS us Bryson Guzman MD PATHOLOGY ORDERABLES Final Resul t Performing Organization Address City/[facility] de Phone Number SEE NARRATIVE * Fecal immunochemical test x1 (FIT) (06/06/2024 3:31 PM EST) Immuno Fecal Occult Negative Negative [facility] Stool (Stool) 06/06/2024 3:3 1 PM EST 06/06/2024 3:33 PM EST us Marcella Mercedes PA-C BODY FLUIDS AND STOOLS ORDERABL ES Final Result Performing Organization Address [facility] de Phone Number [address] [address] * Hepatitis C antibody, qualitative (04/23/2024 3:08 PM EST) HCV NON-REACTIV E NON-REACTI VE [facility] Blood 04/23/2024 3:08 PM EST 04/23/2024 3:19 PM EST us Lurdes Santos DO LAB BLOOD ORDERABLES Final Resul t Performing Organization Address [facility] Co de Phone Number [address] [address] * CT ABDOMEN/PELVIS WITHOUT CONTRAST (04/17/2024 12:17 PM EST) Anatomical Region Laterality Modality Abdomen, Pelvis Computed Tomogra phy 04/18/2024 4:21 PM EST Impressions 04/18/2024 4:30 PM EST 1. Cholecystectomy. 2. No biliary ductal dilatation. 3. Splenomegaly. 4. No ascites. Narrative 04/18/2024 4:[address] ABDOMEN/PELVIS WITHOUT CONTRAST Referring clinician's provided indication for this examination in Epic: Outside Radiology Order; RUQ PAIN TECHNIQUE: Multidetector-row CT of the abdomen and pelvis was performed without intravenous contrast using tailored dose modulation techniques. Images were reconstructed in the axial, coronal, and sagittal planes. COMPARISON: Prior studies including CT abdomen/pelvis dated 11/02/2021 ABSENCE OF INTRAVENOUS CONTRAST DECREASES SENSITIVITY FOR DETECTION OF FOCAL LESIONS AND VASCULAR PATHOLOGY. FINDINGS: Lower Chest: No acute abnormality. Liver: No focal lesions, within the limitations of this unenhanced technique. Mildly nodular hepatic contour. Biliary: No biliary ductal dilatation. Cholecystectomy. Spleen: Splenomegaly (15.2 cm). Pancreas: No pancreatic ductal dilatation or peripancreatic inflammation. Adrenal Glands: No nodules. Kidneys/Ureters: No hydronephrosis or radiopaque renal/ureteral stone. Bowel: No bowel obstruction. Colonic diverticulosis, without diverticulitis. Normal appendix. Small hiatal hernia. Peritoneum/Retroperitoneum: No free intraperitoneal gas or fluid collection. Lymph Nodes: No enlarged abdominal or pelvic lymph nodes. Pelvic Organs/Bladder: No mass. Vessels: No abdominal aortic aneurysm. Bones/Soft Tissues: No destructive bone lesions. Procedure Note Juliano Olivas MD - 04/18/2024 CT ABDOMEN/PELVIS WITHOUT CONTRAST Referring clinician's provided indication for this examination in Epic:Outside Radiology Order; RUQ PAIN TECHNIQUE: Multidetector-row CT of the abdomen and pelvis was performedwithout intravenous contrast using tailored dose modulation techniques.Images were reconstructed in the axial, coronal, and sagittal planes. COMPARISON: Prior studies including CT abdomen/pelvis dated 11/02/2021 ABSENCE OF INTRAVENOUS CONTRAST DECREASES SENSITIVITY FOR DETECTION OFFOCAL LESIONS AND VASCULAR PATHOLOGY. FINDINGS: Lower Chest: No acute abnormality. Liver: No focal lesions, within the limitations of this unenhancedtechnique. Mildly nodular hepatic contour. Biliary: No biliary ductal dilatation. Cholecystectomy. Spleen: Splenomegaly (15.2 cm). Pancreas: No pancreatic ductal dilatation or peripancreaticinflammation. Adrenal Glands: No nodules. Kidneys/Ureters: No hydronephrosis or radiopaque renal/ureteral stone. Bowel: No bowel obstruction. Colonic diverticulosis, withoutdiverticulitis. Normal appendix. Small hiatal hernia. Peritoneum/Retroperitoneum: No free intraperitoneal gas or fluidcollection. Lymph Nodes: No enlarged abdominal or pelvic lymph nodes. Pelvic Organs/Bladder: No mass. Vessels: No abdominal aortic aneurysm. Bones/Soft Tissues: No destructive bone lesions. IMPRESSION: 1. Cholecystectomy. 2. No biliary ductal dilatation. 3. Splenomegaly. 4. No ascites. us Lurdes Santos DO IMG CT ABD/PELVIS Final Result * ENDOSCOPY, COLON (10/18/2022 9:30 AM EDT) Narrative Transcriptions Bryson Guzman MD - 10/18/2022 9:30 AM EDT [facility] Patient Name: Naomi Rivera Attending MD:: BRYSON GUZMAN MD, , Procedure Date: 10/18/2022 9:30 AM Date of : 1955 Age: 67 Admit Type: Outpatient Gender: Male Room: [place] [address] Referring MD: LURDES SANTOS DO Exam Type: Colonoscopy Indications: Screening for colorectal malignant neoplasm Medications: Monitored Anesthesia Care Procedure: Informed consent was obtained from the patientafter discussion of the indications, limitations, alternatives, benefits, and risks of the procedure. Risks specifically discussed include but are not limited to medication reactions, missed lesions, bleeding, perforation, or the need for emergent surgery. Throughout the procedure, the patient's blood pressure, pulse, end-tidal CO2, and oxygensaturations were monitored continuously. The Olympus adult variable colonoscope [id number] #4 was introduced through the anus and advanced to the cecum, identified by appendiceal orifice andileocecal valve. The colonoscopy was performed without difficulty. The patient tolerated the procedurewell. The quality of the bowel preparation was excellent. The quality of the bowel preparation was evaluated using the BBPS ([place] Bowel Preparation Scale)with scores of: Right Colon = 3, Transverse Colon = 3and Left Colon = 3 (entire mucosa seen well with no residual staining, small fragments of stool oropaque liquid). The total BBPS score equals 9. Anatomical landmarks were photographed. Complications: No immediate complications. Estimated blood loss: Minimal. Findings: The perianal and digital rectal examinations were normal. A 2 mm polyp was found in the cecum. The polyp was sessile. The polyp was removed with a cold biopsy forceps. Resection and retrieval were complete. A 2 mm polyp was found in the ascending colon. The polyp was sessile. The polyp was removed with acold biopsy forceps. Resection and retrieval werecomplete. Two sessile polyps were found in the sigmoid colon. The polyps were 4 to 5 mm in size. These polypswere removed with a cold snare. Resection and retrieval were complete. To prevent bleeding after the polypectomy, one hemostatic clip was successfully placed (MR conditional) on each site (2 clipstotal) There was no bleeding at the end of theprocedure. Scattered small and large-mouthed diverticula were found in the sigmoid colon. The exam was otherwise normal throughout theexamined colon. Impression: - One 2 mm polyp in the cecum, removed with a cold biopsy forceps. Resected and retrieved. - One 2 mm polyp in the ascending colon, removedwith a cold biopsy forceps. Resected and retrieved. - Two 4 to 5 mm polyps in the sigmoid colon,removed with a cold snare. Resected and retrieved. Clip (MR conditional) was placed. - Mild diverticulosis in the sigmoid colon. Recommendation: - Discharge patient to home. - Await pathology results. BRYSON GUZMAN MD, 10/18/2022 9:58:23 AM This report has been signed electronically. Number of Addenda: 0 Note Initiated On: 10/18/2022 9:30 AM Procedure Code(s): --- Professional --- 38054, Colonoscopy, flexible; with removal of tumor(s), polyp(s), or other lesion(s) by snare technique 13517, 59, Colonoscopy, flexible; with biopsy, single or multiple --- Technical --- 19035, Colonoscopy, flexible; with removal of tumor(s), polyp(s), or other lesion(s) by snare technique 68895, 59, Colonoscopy, flexible; with biopsy, single or multiple Diagnosis Code(s): --- Professional --- Z12.11, Encounter for screening for malignantneoplasm of colon D12.0, Benign neoplasm of cecum D12.2, Benign neoplasm of ascending colon D12.5, Benign neoplasm of sigmoid colon K57.30, Diverticulosis of large intestine without perforation or abscess without bleeding --- Technical --- Z12.11, Encounter for screening for malignantneoplasm of colon D12.0, Benign neoplasm of cecum D12.2, Benign neoplasm of ascending colon D12.5, Benign neoplasm of sigmoid colon K57.30, Diverticulosis of large intestine without perforation or abscess without bleeding CPT copyright 2021 [employer]. All rights reserved. The codes documented in this report are preliminary and upon doctor of dental medicine reviewmay be revised to meet current compliance requirements. Procedure Date: 10/18/2022 9:30:[address] [place] [address] [place] Lurdes A Bigda DO GI PROCEDURE ORDERABLES Final Re sult * (ABNORMAL) Lipid panel (01/31/2022 2:19 PM EDT) HDL 37 mg/dL [facility] Comment: Interpretation <40 mg/dL: Low HDL cholesterol (major risk factor for CHD) Greater than or equal to 60 mg/dL: High HDL cholesterol ( negative risk factor for CHD) HDL - cholesterol is affected by a number of factors, e.g. smoking, excerise, hormones, sex and age. CHOLESTEROL 158 0 - 240 mg/dL [facility] [facility] TRIGLYCERID[facility] 194(H) 30 - 160 mg/dL [facility] LDL 82 50 - 129 mg/dL [facility] Comment: LDL levels in terms of risk for coronary heart disease: <100 mg/dL: Optimal 100-129 mg/dL: Near or above optimal 130-159 mg/dL: Borderline high 160-189 mg/dL: High >190 mg/dL: Very High CARDIAC RISK RATIO 4.3 3.4 - 5.0 C [facility] Blood 01/31/2022 2:19 PM EDT 01/31/2022 2:25 PM EDT us Lurdes Santos DO LAB BLOOD ORDERABLES Final Resul t [facility] [address] [place], [place] [id number] from Last 3 Months or Most Recently Relevant to Health Maintenance Insurance MEDIC[place] PART A [place] [id number] [facility] MEDEX SUPPLEMENT HEALTH SAFETY NET [place]IAL [place]IC[place] [id number] [employer] [place] MEDEX SUPPLEMENT HEALTH SAFETY NET PARTIAL HEALTH SAFETY NET PARTIAL PARTIAL MEDICARE PART A & B [place] MEDEX SUPPLEMENT HEALTH SAFETY NET PARTIAL NET PARTIAL MEDICARE PART A & B [place] [place] MEDEX SUPPLEMENT Member Subscriber Plan / Payer (Ef fective 2022-) Name:Denizkatelynn Naomi Relation to Subscriber:Self Name:MelissaarturJordan pacen Payer ID:[id number] (NAIC) Type:Indemnity Address: [facility] [id number] PARTIAL MEDICARE PART A & B [place] [place] MEDEX SUPPLEMENT HEALTH SAFETY NET PARTIAL MEDICARE PART A & [place] [id number] [facility] MEDEX SUPPLEMENT HEALTH SAFETY NET PARTIAL Advance Directives For more information, please contact: [phone] (9AM - 5PM Francisca/[facility], Sunday-Sunday) Documents on File Type Date Recorded Patient Professor Of Radiology Expl anation Healthcare Proxy 02/07/2021 5:48 PM Healthcare Proxy 01/17/2021 10:20 AM HCP [email or web address] * Full Code (Latest Code Status on File) Date Activated Date Inactivated Comments 12/21/2021 12:28 PM Question Answer Comments Code Status Confirmed With: Patient * Full Code Date Activated Date Inactivated Comments 09/28/2021 12:21 PM 12/21/2021 12:28 PM Question Answer Comments Code Status Confirmed With: Patient * Full Code Date Activated Date Inactivated Comments 01/14/2021 9:26 PM 09/28/2021 12:21 PM Question Answer Comments Code Status Confirmed With: Patient Code Status Communicated To: Inpatient Attending Healthcare Agents on File Name Relationship Healthcare Agent Relationshi p Communication Nirmala Snow Sister .Primary Health Care Agent (Proxy form on file) Care Teams Heat Regulator Relationship Specialty Start Date End Date Lurdes Santos DO [email or web address] PCP - General Internal Medicine 01/27/17 Margarita Guerra PA-C [address] [place] [email or web address] Physician Child Advocate 04/14/24 Additional Source Comments The information contained in this document represents components of the legal health record. It is not the complete legal health record.[facility]
--- OUTSIDE RECORDS SUMMARY | 2025-01-02 11:57 | XMS_ITS | Encounter Summary ---
Author Organization [facility] Address [address] [place] [address] Phone Care Team Providers Care Knife Sharpener Name Role Phone Luis Ferguson DO Primary Care Provider [phone] Reid Li DO Unavailable [phone] Luis Ferguson DO Unavailable Margarita Guerra PA-C Unavailable [phone] Encounter Details Date Type Department Care Team (Late st Contact Info) Description 10/21/2021 Procedure Pass [facility], Ct Scan - [address] [address] Social History Tobacco Use Types Packs/Day Years [...] Description 02/18/2025 10:00 AM EST Office Visit [facility] Gastroenterology Clinic 10 [place], [place] [id number] Unknown, Unknown, Coco [place], TUBE MACHINE OPERATOR [address] [id number] [email or web address] documented as of this encounter Visit Diagnoses Not on filedocumented in this encounter Care Teams Knife Sharpener Relationship Specialty Start Date End Date Luis Ferguson DO [email or web address] PCP - General Internal Medicine 01/27/17 Reid Li DO [address] [place] [address] [email or web address] Hematology and Oncology 09/03/17 04/13/24 Luis Ferguson DO [address] [place] [address] Insurance Assigned Provider 07/09/21 07/15/22 Margarita Guerra PA-C [address] [place] [address] [email or web address] Physician Waterproofing Supervisor 04/14/24 documented as of this encounter Additional Source Comments The information contained in this document represents components of the legal health record. It is not the complete legal health record.[facility]
--- OUTSIDE RECORDS SUMMARY | 2025-01-02 11:57 | XMS_ITS | Encounter Summary ---
Author Organization [facility] Address [address] [place] [address] Phone Care Team Providers Care Commercial Cleaner Name Role Phone Luis Ferguson DO Primary Care Provider [phone] Reid Li DO Unavailable [phone] Luis Ferguson DO Unavailable Margarita Guerra PA-C Unavailable [phone] Encounter Details Date Type Department Care Team (Late st Contact Info) Description 08/30/2021 Prep for Surgery [facility] General Surgical [facility] 15 [place] [address] Simran Meza MD [address] [facility], 2nd [place] [address] [email or web address] Non-recurrent unilateral inguinal hernia without obstruction or gangrene (Primary Dx) Social History Tobacco Use Types [...] Description 02/18/2025 10:00 AM EST Office Visit [facility] Gastroenterology Clinic 10 [place] [address] Unknown, Unknown, Coco Ashford, PROFESSOR OF SPANISH [address] [address] [email or web address] documented as of this encounter Visit Diagnoses Diagnosis Non-recurrent unilateral inguinal hernia without obstruction or gangrene- Primary documented in this encounter Care Teams Commercial Cleaner Relationship Specialty Start Date End Date Luis Ferguson DO PCP - General Internal Medicine 01/27/17 Reid Li DO [address] [place] [address] [email or web address] DU Hematology and Oncology 09/03/17 04/13/24 Luis Ferguson DO [address] [facility] [place] [address] Insurance Assigned Provider 07/09/21 07/15/22 Margarita Guerra PA-C 30 [place] [address] Physician Electronics Production Supervisor 04/14/24 documented as of this encounter Additional Source Comments The information contained in this document represents components of the legal health record. It is not the complete legal health record.[facility]
--- OUTSIDE RECORDS SUMMARY | 2025-01-02 11:58 | XMS_ITS | Encounter Summary ---
Author Organization [facility] Address [address] [place] [address] Phone Care Team Providers Care Rn Radiology Name Role Phone MarlenacelinaLuis DO Primary Care Provider [phone] Reid Li DO Unavailable [phone] Margarita Guerra PA-C Unavailable [phone] Encounter Details Date Type Department Care Team (Late st Contact Info) Description 10/18/2022 Procedure Pass [facility] Endoscopy Admitting Dept Virtual Department 30 [place] [address] Social History Tobacco Use Types Packs/Day Years [...] 02/18/2025 10:00 AM EST Office Visit [facility] Gastroenterology Clinic 10 [place] [address] Unknown, Unknown, Coco Ashford, PSYCHIATRIC ARNP [address] [address] [email or web address] documented as of this encounter Visit Diagnoses Not on filedocumented in this encounter Care Teams Rn Radiology Relationship Specialty Start Date End Date Luis Ferguson DO PCP - General Internal Medicine 01/27/17 Reid Li DO [address] [place] [address] [email or web address] Hematology and Oncology 09/03/17 04/13/24 Margarita Guerra PA-C 30 [place] [address] Physician Clamp Forklift Operator 04/14/24 documented as of this encounter Additional Source Comments The information contained in this document represents components of the legal health record. It is not the complete legal health record.[facility]
--- OUTSIDE RECORDS SUMMARY | 2025-01-02 11:58 | XMS_ITS | Encounter Summary ---
Author Organization [facility] Address [address] [place] [address] Phone Care Team Providers Care Candy Mixer Name Role Phone Luis Ferguson DO Primary Care Provider [phone] Reid Li DO Unavailable [phone] Luis Ferguson DO Unavailable Margarita Guerra PA-C Unavailable [phone] Encounter Details Date Type Department Care Team (Latest Contact Info) Description 06/07/2022 Transcribe Orders [facility] [address] [place] [address] Bryson Ro MD [address] [place] [address] [email or web address] Alcoholic cirrhosis of liver with ascites (Primary Dx) Social History Tobacco Use Types Packs/Day Years Used Date Smoking Tobacco: Former Cigarettes 1 15 1994 Smokeless Tobacco: Never Alcohol Use Standard [...] Description 02/18/2025 10:00 AM EST Office Visit [facility] Gastroenterology Clinic 10 [place] [address] Unknown, Unknown, Coco Ashford, TELETYPE TECHNICIAN [address] [address] [email or web address] documented as of this encounter Results * US ABDOMEN LIMITED RIGHT UPPER QUADRANT (07/07/2022 10:35 AM EDT) Anatomical Region Laterality Modality Abdomen Ultrasound 07/07/2022 3:18 PM EDT Impressions 07/07/2022 3:26 PM EDT Coarsened hepatic echotexture with cirrhotic morphology. No focal hepatic lesion or biliary ductal dilatation. Narrative 07/07/2022 3:26 PM EDT US ABDOMEN LIMITED RIGHT UPPER QUADRANT TECHNIQUE: US ABDOMEN LIMITED RIGHT UPPER QUADRANT COMPARISON: US ABDOMEN LIMITED RIGHT UPPER QUADRANT FINDINGS: LIVER: Coarsened echotexture. Cirrhotic morphology. No lesions. Portal vein patent with normal direction of flow. Hepatic veins patent. BILE DUCTS: No dilated intrahepatic biliary radicles. Common bile duct measures 5 mm. GALLBLADDER: Cholecystectomy. RIGHT KIDNEY: 10.0 cm. Normal echogenicity. No hydronephrosis. PANCREAS: No ductal dilatation. AORTA: Normal caliber where imaged. IVC: Normal proximally, not imaged distally. OTHER: None. Procedure Note Yamil Addison MD - 07/07/2022 US ABDOMEN LIMITED RIGHT UPPER QUADRANT TECHNIQUE: US ABDOMEN LIMITED RIGHT UPPER QUADRANT COMPARISON: US ABDOMEN LIMITED RIGHT UPPER QUADRANT FINDINGS: LIVER: Coarsened echotexture. Cirrhotic morphology. No lesions. Portalvein patent with normal direction of flow. Hepatic veins patent. BILE DUCTS: No dilated intrahepatic biliary radicles. Common bile ductmeasures 5 mm. GALLBLADDER: Cholecystectomy. RIGHT KIDNEY: 10.0 cm. Normal echogenicity. No hydronephrosis. PANCREAS: No ductal dilatation. AORTA: Normal caliber where imaged. IVC: Normal proximally, not imaged distally. OTHER: None. IMPRESSION: Coarsened hepatic echotexture with cirrhotic morphology. No focal hepatic lesion or biliary ductal dilatation. us Bryson Ro MD IMG US ABDOMEN Final Result documented in this encounter Visit Diagnoses Diagnosis Alcoholic cirrhosis of liver with ascites- Primary Alcoholic cirrhosis of liver with ascites documented in this encounter Care Teams Candy Mixer Relationship Specialty Start Date End Date Luis Ferguson DO PCP - General Internal Medicine 01/27/17 Reid Li DO [address] [place] [address] [email or web address] DU Hematology and Oncology 09/03/17 04/13/24 Luis Ferguson DO [address] [place] [address] Insurance Assigned Provider 07/09/21 07/15/22 Margarita Guerra PA-C [address] [place] [address] [email or web address] Physician Analytical Tech 04/14/24 documented as of this encounter Additional Source Comments The information contained in this document represents components of the legal health record. It is not the complete legal health record.[facility]
--- OUTSIDE RECORDS SUMMARY | 2025-01-02 11:58 | XMS_ITS | Encounter Summary ---
Author Organization [facility] Address [address] [place] [address] Phone Care Team Providers Care Envelope Folder Name Role Phone Phyllis Luis Juan Primary Care Provider [phone] Reid Li DO Unavailable [phone] Luis Ferguson DO Unavailable Luis Ferguson DO Unavailable Margarita Guerra PA-C Unavailable [phone] Encounter Details Date Type Department Care Team (Late st Contact Info) Description 06/04/2018 Procedure Pass [address] [place] [address] Social History Tobacco Use Types Packs/Day Years [...] Description 02/18/2025 10:00 AM EST Office Visit [facility] Gastroenterology Clinic 10 [place] [address] Unknown, Unknown, Coco Ashford, SLIP FILLER [address] [address] [email or web address] documented as of this encounter Visit Diagnoses Not on filedocumented in this encounter Care Teams Envelope Folder Relationship Specialty Start Date End Date PhyllisLuisDO PCP - General Internal Medicine 01/27/17 Reid Li DO 30 [place] [address] [email or web address] Hematology and Oncology 09/03/17 04/13/24 Luis Ferguson DO [address] [facility] [place] [address] Insurance Assigned Provider 08/03/18 03/08/19 Luis Ferguson DO [address] [facility] [place] [address] Insurance Assigned Provider 07/09/21 07/15/22 Margarita Guerra PA-C [address] [place] [address] Physician Southeast Regional Sales Manager 04/14/24 documented as of this encounter Additional Source Comments The information contained in this document represents components of the legal health record. It is not the complete legal health record.[facility]
--- OUTSIDE RECORDS SUMMARY | 2025-01-02 11:58 | XMS_ITS | Encounter Summary ---
Author Organization [facility] Address [address] [place] [address] Phone Care Team Providers Care Otolaryngologist Name Role Phone Luis Ferguson DO Primary Care Provider [phone] Reid Li DO Unavailable [phone] Luis Ferguson DO Unavailable Margarita Guerra PA-C Unavailable [phone] Encounter Details Date Type Department Care Team (Late st Contact Info) Description 12/21/2021 Procedure Pass [place] Admitting Dept - Virtual Department 30 [place] [address] Social History Tobacco Use Types Packs/Day Years [...] 02/18/2025 10:00 AM EST Office Visit [facility] Gastroenterology Clinic 10 [place], [place] [phone] Unknown, Unknown, Coco Ashford, NURSERY HAND [address] [address] [email or web address] documented as of this encounter Visit Diagnoses Not on filedocumented in this encounter Care Teams Otolaryngologist Relationship Specialty Start Date End Date Luis Ferguson DO [email or web address] PCP - General Internal Medicine 01/27/17 Reid Li DO [address] [place] [address] [email or web address] DU Hematology and Oncology 09/03/17 04/13/24 Luis Ferguson DO [address] [place] [address] Insurance Assigned Provider 07/09/21 07/15/22 Margarita Guerra PA-C 30 [place] [address] Physician Heat Reader 04/14/24 documented as of this encounter Additional Source Comments The information contained in this document represents components of the legal health record. It is not the complete legal health record.[facility]
--- OUTSIDE RECORDS SUMMARY | 2025-01-02 11:58 | XMS_ITS | Encounter Summary ---
Author Organization [facility] Address [address] [place] [address] Phone Care Team Providers Care Hybrid Powertrain Development Engineer Name Role Phone Luis Ferguson DO Primary Care Provider [phone] Reid Li DO Unavailable [phone] Luis Ferguson DO Unavailable Margarita Guerra PA-C Unavailable [phone] Encounter Details Date Type Department Care Team (Late st Contact Info) Description 01/14/2021 Procedure Pass [facility], Ct Scan - [address] [address] Social History Tobacco Use Types Packs/Day Years Used Date Smoking Tobacco: Former Cigarettes 1994 Smokeless Tobacco: Never Alcohol Use Standard Drinks/Week Comments No 0 (1 standard drink = 0.6 oz pur e alcohol) former etoh abuse Sex and Gender Information Value Date Recorded Sex Assigned at Male 10/04/2021 10:52 AM EDT Legal Sex Male 1:02 PM EDT Gender Identity Male 10/04/2021 10:52 AM EDT Sexual Orientation Not on file documented as of this encounter Functional Status * Calculated C-SSRS Risk Score (Lifetime/Recent) Answer Date of Assessment Author No Risk Indicated 01/14/2021 3:03 PM EDT Veronica Wang, ANDRESSA * Karnes Suicide Severity Rating Scale (Screener/Recent Self-Report) Question Answer Date of Assessment Author 1. Wish to be (Past 1 Month) No 021 3:03 PM EDT Veronica Wang, ANDRESSA 2. Non-Specific Active Suici talisha Thoughts (Past 1 Month) No 01/14/2021 3:03 PM EDT Wyatt Wang ace, ANDRESSA 6. Suicidal Behavior (Lifetime) No 3:03 PM EDT Veronica Wang, RN documented as of this encounter Plan of Treatment Upcoming Encounters Date Type Department Care Team (Late st Contact Info) Description 02/18/2025 10:00 AM EST Office Visit [facility] Gastroenterology Clinic 10 [place] [address] Unknown, Unknown, Coco Ashford, COURT CLERK [address] [address] [email or web address] documented as of this encounter Visit Diagnoses Not on filedocumented in this encounter Care Teams Hybrid Powertrain Development Engineer Relationship Specialty Start Date End Date Luis Ferguson DO PCP - General Internal Medicine 01/27/17 Reid Li DO [address] [place] [address] [email or web address] DU Hematology and Oncology 09/03/17 04/13/24 Luis Ferguson DO [address] [place] [address] Insurance Assigned Provider 07/09/21 07/15/22 Margarita Guerra PA-C [address] [place] [address] Physician Streetsweeper Operator 04/14/24 documented as of this encounter Additional Source Comments The information contained in this document represents components of the legal health record. It is not the complete legal health record.[facility]
--- OUTSIDE RECORDS SUMMARY | 2025-01-02 11:58 | XMS_ITS | Encounter Summary ---
Author Organization [facility] Address [address] [place] [address] Phone Care Team Providers Care Ekg Tech Name Role Phone MarlenaLuis patrick Primary Care Provider [phone] Reid Li DO Unavailable [phone] Luis Ferguson DO Unavailable Luis Ferguson DO Unavailable Margarita Guerra PA-C Unavailable [phone] Encounter Details Date Type Department Care Team (Late st Contact Info) Description 06/03/2018 Ancillary Orders Virtual Department 30 [place] [address] Mariam Devi PA-C [address]. [address] [place] [address] Paresthesia Social History Tobacco Use Types Packs/Day Years [...] 02/18/2025 10:00 AM EST Office Visit [facility] Gastroenterology [facility] 10 [place] [address] Unknown, Unknown, Coco Ashford, ONLINE EDITOR [address] [address] [email or web address] documented as of this encounter Results * XR LUMBOSACRAL SPINE 4 OR MORE VIEWS (06/03/2018 5:10 PM EST) Anatomical Region Laterality Modality L-spine Radiographic Mone ging 06/03/2018 5:20 PM EST Impressions 06/03/2018 5:23 PM EST Mild and moderate degenerative endplate changes. Normal lumbar spine alignment. POS - [id number] Narrative 06/03/2018 5:23 PM EST XR LUMBOSACRAL SPINE 4 OR MORE VIEWS HISTORY: Paresthesia TECHNIQUE: 5 views lumbar spine: AP, lateral, lateral L5-S1 Spot, bilateral oblique views lumbar spine. COMPARISON: None. FINDINGS: There is normal lumbar lordosis. Normal height and alignment of the lumbar vertebrae. No compression fractures. Mild disc space narrowing at all levels T12-S1 with mild and moderate marginal degenerative endplate osteophytes. There is no spondylolysis. Facet joints are within normal limits. Sacroiliac joints are normal. Procedure Note Tyesha Smith MD - 06/03/2018 XR LUMBOSACRAL SPINE 4 OR MORE VIEWS HISTORY: Paresthesia TECHNIQUE: 5 views lumbar spine: AP, lateral, lateral L5-S1 Spot,bilateral oblique views lumbar spine. COMPARISON: None. FINDINGS: There is normal lumbar lordosis. Normal height and alignment of the lumbarvertebrae. No compression fractures. Mild disc space narrowing at alllevels T12-S1 with mild and moderate marginal degenerative endplateosteophytes. There is no spondylolysis. Facet joints are within normal limits. Sacroiliac joints are normal. IMPRESSION: Mild and moderate degenerative endplate changes. Normal lumbar spine alignment. POS - [id number] July Shandra MARTINS IMG XR SPINE Final Result documented in this encounter Visit Diagnoses Diagnosis Paresthesia Disturbance of skin sensation Paresthesia Disturbance of skin sensation documented in this encounter Care Teams Ekg Tech Relationship Specialty Start Date End Date Luis Ferguson DO PCP - General Internal Medicine 01/27/17 Reid Li DO 30 [place] [address] [email or web address] DU Hematology and Oncology 09/03/17 04/13/24 Luis Ferguson DO [address] [place] [address] Insurance Assigned Provider 08/03/18 03/08/19 Luis Ferguson DO [address] [place] [address] Insurance Assigned Provider 07/09/21 07/15/22 Margarita Guerra PA-C 30 [place] [address] Physician Neurobiologist 04/14/24 documented as of this encounter Additional Source Comments The information contained in this document represents components of the legal health record. It is not the complete legal health record.[facility]
--- OUTSIDE RECORDS SUMMARY | 2025-01-02 11:59 | XMS_ITS | Encounter Summary ---
Author Organization [facility] Address [address] [place] [address] Phone Care Team Providers Care Digital Advertising Specialist Name Role Phone Phyllis Luis Martinez DO Primary Care Provider [phone] Reid Li DO Unavailable [phone] Luis Ferguson DO Unavailable Margarita Guerra PA-C Unavailable [phone] Encounter Details Date Type Department Care Team (Late st Contact Info) Description 03/09/2021 Procedure Pass [facility]ventional [facility] 30 [place] [address] Social History Tobacco Use Types Packs/Day Years [...] Description 02/18/2025 10:00 AM EST Office Visit [facility] Gastroenterology Clinic 10 [place], [place] [phone] Unknown, Unknown, Coco Ashford, STEAM PIPE FITTER [address] [address] [email or web address] documented as of this encounter Visit Diagnoses Not on filedocumented in this encounter Care Teams Digital Advertising Specialist Relationship Specialty Start Date End Date Luis Ferguson DO PCP - General Internal Medicine 01/27/17 Reid Li DO [address] [place] [address] [email or web address] Hematology and Oncology 09/03/17 04/13/24 Luis Ferguson DO [address] [place] [address] Insurance Assigned Provider 07/09/21 07/15/22 Margarita Guerra PA-C [address] [place] [id number] [email or web address] Physician Industrial Gas Servicer 04/14/24 documented as of this encounter Additional Source Comments The information contained in this document represents components of the legal health record. It is not the complete legal health record.[facility]
--- OUTSIDE RECORDS SUMMARY | 2025-01-02 11:59 | XMS_ITS | Encounter Summary ---
Author Organization [facility] Address [address] [place] [address] Phone Care Team Providers Care Sand Caster Name Role Phone Luis Ferguson DO Primary Care Provider Margarita Guerra PA-C Unavailable [phone] Encounter Details Date Type Department Care Team (Late st Contact Info) Description 12/29/2024 Transcribe Orders [facility] Laboratory [address] [place] [address] Luis Ferguson DO [address] [facility] [address] [place], [place] [id number] [email or web address] Encounter for general adult medical examination without abnormal findings (Primary Dx) Social History Tobacco [...] Upcoming Encounters Date Type Department Care Team ([facility] st Contact Info) Description 02/18/2025 10:00 AM EST Office Visit [facility] [address] [place] [address] Unknown, Unknown, Coco Ashford, ONSHORE DIVER [address] [place] [address] [email or web address] documented as of this encounter Results * (ABNORMAL) CBC and differential (12/29/2024 3:26 PM EDT) WBC 5.95 4.00 - 11.00 K/uL [facility] RBC 3.98(L) 4.50 - 5.90 M/uL [facility] HGB 12.7(L) 13.5 - 17.5 g/dL [facility] HCT 36.9(L) 41.0 - 53.0 % [facility] PLT 108(L) 150 - 450 K/uL [facility] MCV 92.7 80.0 - 100.0 fL [facility] MCH 31.9(H) 27.0 - 31.0 pg [facility] MCHC 34.4 32.0 - 36.0 g/dL [facility] RDW 12.8 11.5 - 14.5 % [facility] MPV 11.4 8.4 - 12.0 fL [facility] NRBC 0.00 0.00 /100 WBCs [facility] ABSOLUTE NRBC 0.00 0.00 K/uL [facility] DIFF METHOD Auto [facility] NEUTS 56.1 48.0 - 76.0 % [facility] LYMPHS 30.1 18.0 - 41.0 % [facility] MONOS 8.2 4.0 - 11.0 % [facility] EOS 4.4 0.0 - 5.0 % [facility] BASOS 0.7 0.0 - 1.5 % [facility] Granulocytes, immature (%) 0.5 0.0 - 0.9 % [facility] ABSOLUTE NEUTS 3.34 1.92 - 7.60 K/uL [facility] ABSOLUTE LYMPHS 1.79 0.72 - 4.10 K/uL [facility] ABSOLUTE MONOS 0.49 0.16 - 1.10 K/uL [facility] ABSOLUTE EOS 0.26 0.00 - 0.50 K/uL [facility] ABSOLUTE BASOS 0.04 0.00 - 0.15 K/uL [facility] Granulocytes, immature 0.03 0.00 - 0.09 K/uL [facility] Blood 12/29/2024 3:26 PM EDT 12/29/2024 3:29 PM EDT us Luis Ferguson DO LAB BLOOD ORDERABLES Final Resul t Performing Organization Address City/State/[facility] Co de Phone Number [address] [address] documented in this encounter Visit Diagnoses Diagnosis Encounter for general adult medical examination without abnormal findings- Primary documented in this encounter Care Teams Sand Caster Relationship Specialty Start Date End Date Luis Ferguson DO [email or web address] PCP - General Internal Medicine 01/27/17 Margarita Guerra PA-C [address] [place] [address] Physician Notch Machine Operator 04/14/24 documented as of this encounter Additional Source Comments The information contained in this document represents components of the legal health record. It is not the complete legal health record.[facility]
--- OUTSIDE RECORDS SUMMARY | 2025-01-02 11:59 | XMS_ITS | Encounter Summary ---
Author Organization [facility] Address [address] [place] [address] Phone Care Team Providers Care Installer Name Role Phone MarlenaLuis patrick Juan VASQUES Primary Care Provider [phone] Margarita Guerra PA-C Unavailable [phone] Encounter Details Date Type Department Care Team (Late st Contact Info) Description 08/26/2024 Procedure Pass [facility] Endoscopy Admitting Dept Virtual Department [address] [place] [address] Social History Tobacco Use Types Packs/Day Years [...] as food, clothing, or medical care? No 08/26/2024 In the past 12 months have y ou been in a relationship with a person who hurts, threatens, or tries to control you? No 08/26/2024 Are you denied basic needs s uch as food, clothing, or medical care? No 08/26/2024 In the past 12 months have y ou been in a relationship with a person who hurts, threatens, or tries to control you? No 08/26/2024 Sex and Gender Information Value Date Recorded Sex Assigned at Male 10/04/2021 10:52 AM EDT Legal Sex Male 1:02 PM EDT Gender Identity Male 10/04/2021 10:52 AM EDT Sexual Orientation Not on file documented as of this encounter Plan of Treatment Upcoming Encounters Date Type Department Care Team (Late st Contact Info) Description 02/18/2025 10:00 AM EST Office Visit [facility] Gastroenterology Clinic 10 [place] [address] Unknown, Unknown, Coco Ashford, PALLETISER OPERATOR [address] [address] [email or web address] documented as of this encounter Visit Diagnoses Not on filedocumented in this encounter Care Teams Installer Relationship Specialty Start Date End Date Luis Ferguson DO PCP - General Internal Medicine 01/27/17 Margarita Guerra PA-C [address] [place] [address] Physician Crossbar Switch Adjuster 04/14/24 documented as of this encounter Additional Source Comments The information contained in this document represents components of the legal health record. It is not the complete legal health record.[facility]
--- OUTSIDE RECORDS SUMMARY | 2025-01-02 11:59 | XMS_ITS | Encounter Summary ---
Author Organization [facility] Address [address] [place] [address] Phone Care Team Providers Care Seasonal Recruiter Name Role Phone Luis Ferguson DO Primary Care Provider [phone] Reid Li DO Unavailable [phone] Luis Ferguson DO Unavailable Margarita Guerra PA-C Unavailable [phone] Encounter Details Date Type Department Care Team (Late st Contact Info) Description 12/12/2021 Prep for Surgery [facility] General Surgical Care [address] [place] [address] Simran Meza MD [address] [facility], 2nd [place] [address] [email or web address] Common bile duct stone (Primary Dx) Social History Tobacco Use Types [...] Description 02/18/2025 10:00 AM EST Office Visit [facility] Gastroenterology Clinic 10 [place] [address] Unknown, Unknown, Coco Ashford, CIRCULAR GANG SAW OPERATOR [address] [address] [email or web address] documented as of this encounter Visit Diagnoses Diagnosis Common bile duct stone- Primary Calculus of bile duct without mention of cholecystitis or obstruction documented in this encounter Care Teams Seasonal Recruiter Relationship Specialty Start Date End Date Luis Ferguson DO PCP - General Internal Medicine 01/27/17 Reid Li DO [address] [place] [address] [email or web address] Hematology and Oncology 09/03/17 04/13/24 Luis Ferguson DO [address] [facility] [place] [address] Insurance Assigned Provider 07/09/21 07/15/22 Margarita Guerra PA-C [address] [place] [email or web address] Physician Geological Drafter 04/14/24 documented as of this encounter Additional Source Comments The information contained in this document represents components of the legal health record. It is not the complete legal health record.[facility]
--- OUTSIDE RECORDS SUMMARY | 2025-01-02 11:59 | XMS_ITS | Encounter Summary ---
Author Organization [facility] Address [address] [place] [address] Phone Care Team Providers Care Bar Supervisor Name Role Phone Phyllis Luis Martinez DO Primary Care Provider [phone] Reid Li DO Unavailable [phone] Luis Ferguson DO Unavailable Margarita Guerra PA-C Unavailable [phone] Encounter Details Date Type Department Care Team (Late st Contact Info) Description 04/15/2021 Procedure Pass [facility]ovascular [facility] Interventional Radiology [address] [place] [address] Social History Tobacco Use Types Packs/Day Years [...] Description 02/18/2025 10:00 AM EST Office Visit [facility] Gastroenterology Clinic 10 [place], [place] [id number] Unknown, Unknown, Coco Ashford, GROMMET WORKER [address] [address] [email or web address] documented as of this encounter Visit Diagnoses Not on filedocumented in this encounter Care Teams Bar Supervisor Relationship Specialty Start Date End Date Luis Ferguson DO PCP - General Internal Medicine 01/27/17 Reid Li DO [address] [place] [address] [email or web address] Hematology and Oncology 09/03/17 04/13/24 Luis Ferguson DO [address] [place] [address] Insurance Assigned Provider 07/09/21 07/15/22 Margarita Guerra PA-C [address] [place] [address] Physician Corporate Securities Research Analyst 04/14/24 documented as of this encounter Additional Source Comments The information contained in this document represents components of the legal health record. It is not the complete legal health record.[facility]
--- OUTSIDE RECORDS SUMMARY | 2025-01-02 11:59 | XMS_ITS | Encounter Summary ---
Author Organization [facility] Address [address] [place] [address] Phone Care Team Providers Care Tailor Apprentice Name Role Phone MarlenacelinaLuis DO Primary Care Provider [phone] Reid Li DO Unavailable [phone] Margarita Guerra PA-C Unavailable [phone] Encounter Details Date Type Department Care Team (Late st Contact Info) Description 04/08/2024 Procedure Pass [facility], [facility] Scan - [facility] 30 [place] [address] Social History Tobacco Use Types Packs/Day Years [...] Description 02/18/2025 10:00 AM EST Office Visit [facility] Gastroenterology Clinic 10 [place] [address] Unknown, Unknown, Coco Ashford, APPEALS ANALYST [address] [address] [email or web address] documented as of this encounter Visit Diagnoses Not on filedocumented in this encounter Care Teams Tailor Apprentice Relationship Specialty Start Date End Date Luis Ferguson DO PCP - General Internal Medicine 01/27/17 Reid Li DO [address] [place] [address] [email or web address] Hematology and Oncology 09/03/17 04/13/24 Margarita Guerra PA-C 30 [place] [address] [email or web address] Physician X Ray Examiner Of Aircraft 04/14/24 documented as of this encounter Additional Source Comments The information contained in this document represents components of the legal health record. It is not the complete legal health record.[facility]
--- OUTSIDE RECORDS SUMMARY | 2025-01-02 11:59 | XMS_ITS | Encounter Summary ---
Author Organization [facility] Address [address] [place] [address] Phone Care Team Providers Care Wire Frame Lampshade Maker Name Role Phone Luis Ferguson DO Primary Care Provider [phone] Reid Li DO Unavailable [phone] Luis Ferguson DO Unavailable Margarita Guerra PA-C Unavailable [phone] Encounter Details Date Type Department Care Team (Late st Contact Info) Description 06/30/2021 Procedure Pass [facility]ventional [facility] 30 [place] [address] Social History Tobacco Use Types Packs/Day Years [...] Description 02/18/2025 10:00 AM EST Office Visit [facility] Gastroenterology Clinic 10 [place] [address] Unknown, Unknown, Coco Ashford, LINK TRAINER MAINTENANCE MAN [address] [phone] [email or web address] documented as of this encounter Visit Diagnoses Not on filedocumented in this encounter Care Teams Wire Frame Lampshade Maker Relationship Specialty Start Date End Date Luis Ferguson DO PCP - General Internal Medicine 01/27/17 Reid Li DO [address] [place] [address] [email or web address] Hematology and Oncology 09/03/17 04/13/24 Luis Ferguson DO [address] [place] [address] Insurance Assigned Provider 07/09/21 07/15/22 Margarita Guerra PA-C [address] [place] [address] Physician Power Wheelchair Mechanic 04/14/24 documented as of this encounter Additional Source Comments The information contained in this document represents components of the legal health record. It is not the complete legal health record.[facility]
--- OUTSIDE RECORDS SUMMARY | 2025-01-02 11:59 | XMS_ITS | Encounter Summary ---
Author Organization [facility] Address [address] [place] [address] Phone Care Team Providers Care Assembler Camper Name Role Phone Phyllis Luis Martinez DO Primary Care Provider [phone] Reid Li DO Unavailable [phone] Luis Ferguson DO Unavailable Margarita Guerra PA-C Unavailable [phone] Encounter Details Date Type Department Care Team (Late st Contact Info) Description 05/16/2021 Procedure Pass [facility]ventional [facility]iology 30 [place] [address] Social History Tobacco Use Types Packs/Day Years [...] [facility] 10 [place], [place] [phone] Unknown, Unknown, Coco Ashford, TITLE LAWYER [address] [address] [email or web address] documented as of this encounter Visit Diagnoses Not on filedocumented in this encounter Care Teams Assembler Camper Relationship Specialty Start Date End Date Luis Ferguson DO PCP - General Internal Medicine 01/27/17 Reid Li DO [address] [place] [address] [email or web address] Hematology and Oncology 09/03/17 04/13/24 Luis Ferguson DO [address] [place] [address] Insurance Assigned Provider 07/09/21 07/15/22 Margarita Guerra PA-C [address] [place] [address] Physician Signal Circuit Designer 04/14/24 documented as of this encounter Additional Source Comments The information contained in this document represents components of the legal health record. It is not the complete legal health record.[facility]
--- OUTSIDE RECORDS SUMMARY | 2025-01-02 11:59 | XMS_ITS | Encounter Summary ---
Author Organization [facility] Address [address] [place] [address] Phone Care Team Providers Care Tamale Machine Feeder Name Role Phone Phyllis Luis Martinez DO Primary Care Provider [phone] Reid Li DO Unavailable [phone] Luis Ferguson DO Unavailable Margarita Guerra PA-C Unavailable [phone] Encounter Details Date Type Department Care Team (Latest Contact Info) Description 07/06/2021 Transcribe Orders [facility] Laboratory 10 [facility] 2nd [place] [address] Bryson Ro MD [address] [address] Gastroesophageal reflux disease with esophagitis, unspecified whether hemorrhage (Primary Dx) Social History Tobacco Use Types [...] Description 02/18/2025 10:00 AM EST Office Visit [facility] Gastroenterology Clinic 10 [place] [address] Unknown, Unknown, Coco Ashford, EDITOR IN CHIEF NEWSPAPER [address] [address] [email or web address] documented as of this encounter Results * (ABNORMAL) PT-INR (07/06/2021 10:05 AM EDT) PT 13.3(H) 10.2 - 12.9 sec [facility] INR 1.2(H) 0.9 - 1.1 [facility] Comment:Therapeutic range fo r oral Vitamin K antagonists: 2.0-3.5 Blood 07/06/2021 10:0 5 AM EDT 07/06/2021 10:09 AM EDT us Bryson Ro MD LAB BLOOD ORDERABLES Final Resul t [facility] 30 [place] [address] * (ABNORMAL) Comprehensive metabolic panel (07/06/2021 10:05 AM EDT) SODIUM 136 133 - 146 mmol/L [facility] POTASSIUM 4.3 3.3 - 5.1 mmol/L [facility] CHLORIDE 100 96 - 108 mmol/L [facility] CO2 24 21 - 35 mmol/L [facility] BUN 28(H) 6 - 19 mg/dL [facility] CREATININE 1.40 0.5 - 1.5 mg/dL [facility] GLUCOSE 121(H) 70 - 99 mg/dL [facility] ALBUMIN 4.3 3.9 - 4.8 g/dL [facility] TOTAL PROTEIN 7.7 6.5 - 8.0 g/dL [facility] CALCIUM 10.2 8.4 - 10.3 mg/dL [facility] ALKALINE PHOSPHATASE 154(H) 39 - 117 U/L [facility] TOTAL BILIRUBIN 1.1 0.0 - 1.2 mg/dL [facility] AST 23 0 - 37 U/L [facility] ALT 15 0 - 40 U/L [facility] GLOBULIN 3.4 1 - 4.8 g/dL [facility] EGFR 56(L) >59 mL/min/1.7 3m2 [facility] Comment:Estimated glomerular filtration rate calculated using the CKD-EPI refit equation. ANION GAP 16 10 - 20 mmol/L [facility] Blood 07/06/2021 10:0 5 AM EDT 07/06/2021 10:09 AM EDT us Bryson Ro MD LAB BLOOD ORDERABLES Final Resul t Performing Organization Address City/[facility] Co de Phone Number [address] [address] * (ABNORMAL) CBC (07/06/2021 10:05 AM EDT) WBC 11.12(H) 4.00 - 11.00 K/uL [facility] RBC 3.66(L) 3.90 - 5.69 M/uL [facility] HGB 11.9(L) 12.4 - 17.3 g/dL [facility] HCT 34.1(L) 37.0 - 51.0 % [facility] PLT 155 140 - 430 K/uL [facility] MCV 93.2 78.0 - 97.0 fL [facility] MCH 32.5 25.0 - 33.0 pg [facility] MCHC 34.9 32.0 - 36.0 g/dL [facility] RDW 13.7 11.0 - 15.0 % [facility] MPV 12.0 8.4 - 12.8 fl [facility] NRBC 0.00 0 /100 WBCs [facility] ABSOLUTE NRBC 0.00 0 K/uL [facility] Blood 07/06/2021 10:0 5 AM EDT 07/06/2021 10:09 AM EDT us Bryson Ro MD LAB BLOOD ORDERABLES Final Resul t [address] [address] * AFP (non-maternal specimens) (07/06/2021 10:05 AM EDT) AFP (NON-MATERNAL) 5.6 <7.9 ng/mL [facility] Blood 07/06/2021 10:0 5 AM EDT 07/06/2021 10:09 AM EDT us Bryson Ro MD LAB BLOOD ORDERABLES Final Resul t [address] [address] documented in this encounter Visit Diagnoses Diagnosis Gastroesophageal reflux disease with esophagitis, unspecified whether hemorrhage- Primary documented in this encounter Care Teams Tamale Machine Feeder Relationship Specialty Start Date End Date Luis Ferguson DO [email or web address] PCP - General Internal Medicine 01/27/17 Reid Li DO [address] [place] [address] [email or web address] Hematology and Oncology 09/03/17 04/13/24 Luis Ferguson DO [address] [place] [address] [email or web address] Insurance Assigned Provider 07/09/21 07/15/22 Margarita Guerra PA-C [address] [place] [address] Physician Dispatcher Service 04/14/24 documented as of this encounter Additional Source Comments The information contained in this document represents components of the legal health record. It is not the complete legal health record.[facility]
--- OUTSIDE RECORDS SUMMARY | 2025-01-02 11:59 | XMS_ITS | Encounter Summary ---
Author Organization [facility] Address [address] [place] [address] Phone Care Team Providers Care Precision Mechanical Instrument Maker Name Role Phone MarlenaLuis patrick Juan VASQUES Primary Care Provider [phone] Margarita Guerra PA-C Unavailable [phone] Encounter Details Date Type Department Care Team (Late st Contact Info) Description 12/02/2024 Procedure Pass [facility] Endoscopy Admitting Dept Virtual Department 30 [place] [address] Social History Tobacco Use Types Packs/Day Years [...] Description 02/18/2025 10:00 AM EST Office Visit [facility] Gastroenterology Clinic 10 [place] [address] Unknown, Unknown, Coco Ashford, ROLL MACHINE OPERATOR [address] [address] [email or web address] documented as of this encounter Visit Diagnoses Not on filedocumented in this encounter Care Teams Precision Mechanical Instrument Maker Relationship Specialty Start Date End Date Luis Ferguson DO PCP - General Internal Medicine 01/27/17 Margarita Guerra PA-C [address] [place] [address] Physician Remote Sensing Program Manager 04/14/24 documented as of this encounter Additional Source Comments The information contained in this document represents components of the legal health record. It is not the complete legal health record.[facility]
--- OUTSIDE RECORDS SUMMARY | 2025-01-02 11:59 | XMS_ITS | Encounter Summary ---
Author Organization [facility] Address [address] [place] [address] Phone Care Team Providers Care Human Resources Trainer Name Role Phone Luis Ferguson DO Primary Care Provider [phone] Reid Li DO Unavailable [phone] Luis Ferguson DO Unavailable Luis Ferguson DO Unavailable Margarita Guerra PA-C Unavailable [phone] Reason for Referral * MRI/CAT Scan - Closed Specialty Diagnoses / Procedures Referred By Aguila waldron Referred To Contact Radiology Diagnoses Lumbar radiculopathy Procedures MRI Lumbar Spine Mariam Devi PA-C Phone: tel: fax: Referral ID Status Reason Start Date Expiration Date Visits Re quested Visits Authorized [id number] Closed 06/10/2018 08/08/2018 1 1 Encounter Details Date Type Department Care Team (Latest Contact Info) Description 06/04/2018 Ancillary Orders Virtual Department 30 [place] [address] Mariam Devi PA-C [address] [place] [address] Lumbar radiculopathy Social History Tobacco Use Types Packs/Day Years [...] AM EST Office Visit [facility] 10 [place] [address] Unknown, Unknown, Coco Ashford, PRIVACY COMPLIANCE MANAGER [address] [address] [email or web address] documented as of this encounter Results * MRI LUMBAR SPINE (NEURO) WITHOUT CONTRAST (06/18/2018 8:41 AM EDT) Anatomical Region Laterality Modality L-spine Magnetic Resonan ce 06/18/2018 9:38 AM EDT Impressions 06/18/2018 12:41 PM EDT Transitional lumbosacral anatomy with sacralization of L5, which should be taken into account when numbering the vertebral body and disc levels. Broad-based disc protrusions at L2-L3, L3-L4 and L4-L5 with posterior ligamentous thickening and bilateral facet hypertrophic changes at these levels. At L2-L3, moderate to severe canal and bilateral lateral recess stenosis. At L3-L4, severe canal stenosis and bilateral lateral recess stenosis. There is contact upon the bilateral L3 and L4 nerves in the lateral recesses. POS - [id number] Narrative 06/18/2018 12:41 PM EDT MRI LUMBAR SPINE (NEURO) WITHOUT CONTRAST, HISTORY: Lumbar radiculopathy Pain right buttocks radiating right foot, numbness and tingling in bilateral buttocks radiating to legs and feet. COMPARISON: None. TECHNIQUE: Exam performed on a 1.5 Zara high-field MRI scanner. Sagittal T1, T2 and STIR, axial T1 and T2 sequences were obtained. FINDINGS: Lumbar lordosis is normal. There is no acute fracture. Vertebrae are normal in height and alignment. There is transitional lumbosacral anatomy with sacralization of L5. There is heterogeneous marrow signal intensity with mixture of red and yellow marrow. Modic type I edematous signal changes in the inferior endplate of L4 and superior endplate of L5 on the right. There is an inferior endplate Schmorl's node at T11. There is moderate loss of disc height at T10-T11 and T11-T12, mild loss of disc height at L2-L3, L3-L4, L4-L5 with degenerative disc desiccation. Normal appearance of the distal conus which terminates at the superior L1 level. There is no retroperitoneal abnormality. There are bilateral facet arthritic changes at most levels, most pronounced at L3-L4, L4-L5. Evaluation of the individual disc levels: T12-L1: Normal. No disc herniation or significant stenosis. L1-L2: No disc herniation. Moderate bilateral facet hypertrophic changes and posterior ligamentous thickening resulting in mild central canal stenosis. No significant neural foraminal stenosis. L2-L3: Broad-based disc protrusion with central posterior annular tear. Moderate bilateral facet hypertrophic changes and posterior ligamentous thickening. Together findings result in moderate to severe canal and lateral recess stenosis, AP diameter of the canal is 6-7 mm. There is central clumping of the traversing nerves with minimal CSF signal anterior to the nerve roots. There is contact upon the traversing bilateral L3 nerves in the lateral recesses (5:11). Mild left greater than right bilateral neural foraminal stenosis. L3-L4: Broad-based disc protrusion, moderate to marked bilateral facet hypertrophy and marked posterior ligamentous thickening. Together findings result in severe canal stenosis, AP diameter of the canal 5-6 mm. Central clumping of traversing nerves and posterior deviation of the L4 nerves in the lateral recesses. There is mild bilateral neural foraminal stenosis. L4-L5: Broad base disc protrusion. Bilateral facet hypertrophic changes and mild posterior ligamentous thickening. There is mild indentation upon the anterior thecal sac, without significant canal stenosis. There is moderate bilateral neural foraminal stenosis. L5-S1: No canal or neuroforaminal stenosis. Procedure Note Tyesha Smith MD - 06/18/2018 MRI LUMBAR SPINE (NEURO) WITHOUT CONTRAST, HISTORY: Lumbar radiculopathy Pain right buttocks radiating right foot,numbness and tingling in bilateral buttocks radiating to legs and feet. COMPARISON: None. TECHNIQUE: Exam performed on a 1.5 Zara high-field MRI scanner. SagittalT1, T2 and STIR, axial T1 and T2 sequences were obtained. FINDINGS: Lumbar lordosis is normal. There is no acute fracture. Vertebrae arenormal in height and alignment. There is transitional lumbosacral anatomy with sacralization of L5. Thereis heterogeneous marrow signal intensity with mixture of red and yellowmarrow. Modic type I edematous signal changes in the inferior endplate ofL4 and superior endplate of L5 on the right. There is an inferior endplateSchmorl's node at T11. There is moderate loss of disc height at T10-T11 and T11-T12, mild loss ofdisc height at L2-L3, L3-L4, L4-L5 with degenerative disc desiccation. Normal appearance of the distal conus which terminates at the superior [id number]. There is no retroperitoneal abnormality. There are bilateral facet arthritic changes at most levels, mostpronounced at L3-L4, L4-L5. Evaluation of the individual disc levels: T12-L1: Normal. No disc herniation or significant stenosis. L1-L2: No disc herniation. Moderate bilateral facet hypertrophic changesand posterior ligamentous thickening resulting in mild central canalstenosis. No significant neural foraminal stenosis. L2-L3: Broad-based disc protrusion with central posterior annular tear.Moderate bilateral facet hypertrophic changes and posterior ligamentousthickening. Together findings result in moderate to severe canal andlateral recess stenosis, AP diameter of the canal is 6-7 mm. There iscentral clumping of the traversing nerves with minimal CSF signal anteriorto the nerve roots. There is contact upon the traversing bilateral [id number] in the lateral recesses (5:11). Mild left greater than rightbilateral neural foraminal stenosis. L3-L4: Broad-based disc protrusion, moderate to marked bilateral facethypertrophy and marked posterior ligamentous thickening. Together findingsresult in severe canal stenosis, AP diameter of the canal 5-6 mm. Centralclumping of traversing nerves and posterior deviation of the L4 nerves inthe lateral recesses. There is mild bilateral neural foraminal stenosis. L4-L5: Broad base disc protrusion. Bilateral facet hypertrophic changesand mild posterior ligamentous thickening. There is mild indentation uponthe anterior thecal sac, without significant canal stenosis. There ismoderate bilateral neural foraminal stenosis. L5-S1: No canal or neuroforaminal stenosis. IMPRESSION: Transitional lumbosacral anatomy with sacralization of L5, which should betaken into account when numbering the vertebral body and disc levels. Broad-based disc protrusions at L2-L3, L3-L4 and L4-L5 with posteriorligamentous thickening and bilateral facet hypertrophic changes at theselevels. At L2-L3, moderate to severe canal and bilateral lateral recessstenosis. At L3-L4, severe canal stenosis and bilateral lateral recessstenosis. There is contact upon the bilateral L3 and L4 nerves in thelateral recesses. POS - [id number] July Shandra MARTINS IMG MR XSPECIALTY Final Resu lt documented in this encounter Visit Diagnoses Diagnosis Lumbar radiculopathy Thoracic or lumbosacral neuritis or radiculitis, unspecified Lumbar radiculopathy Thoracic or lumbosacral neuritis or radiculitis, unspecified documented in this encounter Care Teams Human Resources Trainer Relationship Specialty Start Date End Date Luis Ferguson DO [email or web address] PCP - General Internal Medicine 01/27/17 Reid Li DO [address] [place] [address] [email or web address] Hematology and Oncology 09/03/17 04/13/24 Luis Ferguson DO [address] [place] [address] [email or web address] Insurance Assigned Provider 08/03/18 03/08/19 Luis Ferguson DO [address] [place] [address] [email or web address] Insurance Assigned Provider 07/09/21 07/15/22 Margarita Guerra PA-C [address] [place] [address] [email or web address] Physician Steel Handler 04/14/24 documented as of this encounter Additional Source Comments The information contained in this document represents components of the legal health record. It is not the complete legal health record.[facility]
--- OUTSIDE RECORDS SUMMARY | 2025-01-02 11:59 | XMS_ITS | Encounter Summary ---
Author Organization [facility] Address [address] [place] [address] Phone Care Team Providers Care Nutritional Yeast Supervisor Name Role Phone Phyllis Luis Martinez DO Primary Care Provider [phone] Reid Li DO Unavailable [phone] Luis Ferguson DO Unavailable Margarita Guerra PA-C Unavailable [phone] Encounter Details Date Type Department Care Team (Late st Contact Info) Description 03/11/2021 Procedure Pass [facility] Cardiovascular And Interventional Radiology 30 [place] [address] Social History Tobacco Use Types Packs/Day Years [...] Description 02/18/2025 10:00 AM EST Office Visit [facility] 10 [place], [place] [phone] Unknown, Unknown, Coco Ashford, SLIP BRIDGE OPERATOR [address] [address] [email or web address] documented as of this encounter Visit Diagnoses Not on filedocumented in this encounter Care Teams Nutritional Yeast Supervisor Relationship Specialty Start Date End Date Luis Ferguson DO PCP - General Internal Medicine 01/27/17 Reid Li DO [address] [place] [address] [email or web address] Hematology and Oncology 09/03/17 04/13/24 Luis Ferguson DO [address] [place] [address] Insurance Assigned Provider 07/09/21 07/15/22 Margarita Guerra PA-C [address] [place] [address] Physician Cafeteria Food Server 04/14/24 documented as of this encounter Additional Source Comments The information contained in this document represents components of the legal health record. It is not the complete legal health record.[facility]
--- OUTSIDE RECORDS SUMMARY | 2025-01-02 11:59 | XMS_ITS | Encounter Summary ---
Author Organization [facility] Address [address] [place] [address] Phone Care Team Providers Care Appeals Officer Name Role Phone Phyllis Luis Martinez DO Primary Care Provider [phone] Reid Li DO Unavailable [phone] Luis Ferguson DO Unavailable Margarita Guerra PA-C Unavailable [phone] Encounter Details Date Type Department Care Team (Late st Contact Info) Description 02/01/2021 Procedure Pass [facility] Cardiovascular And Interventional Radiology 30 [place] [address] Social History Tobacco Use Types Packs/Day Years [...] Description 02/18/2025 10:00 AM EST Office Visit [facility] 10 [place], [place] [phone] Unknown, Unknown, Coco Ashford, CONSTRUCTION REP [address] [address] [email or web address] documented as of this encounter Visit Diagnoses Not on filedocumented in this encounter Care Teams Appeals Officer Relationship Specialty Start Date End Date Luis Ferguson DO PCP - General Internal Medicine 01/27/17 Reid Li DO [address] [place] [address] [email or web address] Hematology and Oncology 09/03/17 04/13/24 Luis Ferguson DO [address] [place] [phone] Insurance Assigned Provider 07/09/21 07/15/22 Margarita Guerra PA-C [address] [place] [address] Physician Prototype Sewer 04/14/24 documented as of this encounter Additional Source Comments The information contained in this document represents components of the legal health record. It is not the complete legal health record.[facility]
--- OUTSIDE RECORDS SUMMARY | 2025-01-02 11:59 | XMS_ITS | Encounter Summary ---
Author Organization [facility] Address [address] [place] [address] Phone Care Team Providers Care Fleet Dispatch Manager Name Role Phone Luis Ferguson DO Primary Care Provider Reid Li DO Unavailable [phone] Margarita Guerra PA-C Unavailable [phone] Reason for Referral * MRI/CAT Scan - Closed Specialty Diagnoses / Procedures Referred By Aguila waldron Referred To Contact Radiology Diagnoses RUQ pain Procedures CT Abdomen/Pelvis Luis Ferguson DO Phone: tel: fax: [email or web address] Referral ID Status Reason Start Date Expiration Date Visits Re quested Visits Authorized [id number] Closed 04/08/2024 04/08/2025 1 1 Encounter Details Date Type Department Care Team (Late st Contact Info) Description 04/08/2024 Transcribe Orders Virtual Department 30 [place] [address] Luis Ferguson DO [address] [facility] [place] [address] [email or web address] RUQ pain (Primary Dx) Social History Tobacco Use Types [...] Office Visit [facility] [address] [place] [address] Unknown, Unknown, Coco Ashford, STITCHER FEEDER [address] [place] [address] [email or web address] documented as of this encounter Results * CT ABDOMEN/PELVIS WITHOUT CONTRAST (04/17/2024 12:17 PM EST) Anatomical Region Laterality Modality Abdomen, Pelvis Computed Tomogra phy 04/18/2024 4:21 PM EST Impressions 04/18/2024 4:30 PM EST 1. Cholecystectomy. 2. No biliary ductal dilatation. 3. Splenomegaly. 4. No ascites. Narrative 04/18/2024 4:[address] ABDOMEN/PELVIS WITHOUT CONTRAST Referring clinician's provided indication for this examination in [facility]: Outside Radiology Order; RUQ PAIN TECHNIQUE: Multidetector-row [...] clinician's provided indication for this examination in [facility]:Outside Radiology Order; RUQ PAIN TECHNIQUE: Multidetector-row CT [...] dilatation. 3. Splenomegaly. 4. No ascites. us Luis Ferguson DO IMG CT ABD/PELVIS Final Result documented in this encounter Visit Diagnoses Diagnosis RUQ pain- Primary Abdominal pain, right upper quadrant RUQ pain Abdominal pain, right upper quadrant documented in this encounter Care Teams Fleet Dispatch Manager Relationship Specialty Start Date End Date Luis Ferguson DO PCP - General Internal Medicine 01/27/17 Reid Li DO [address] [place] [address] [email or web address] Hematology and Oncology 09/03/17 04/13/24 Margarita Guerra PA-C [address] [place] [address] [email or web address] Physician Car Designer 04/14/24 documented as of this encounter Additional Source Comments The information contained in this document represents components of the legal health record. It is not the complete legal health record.[facility]
--- OUTSIDE RECORDS SUMMARY | 2025-01-02 11:59 | XMS_ITS | Encounter Summary ---
Author Organization [facility] Address [address] [place] [address] Phone Care Team Providers Care Tester Operator Name Role Phone Phyllis Luis Martinez DO Primary Care Provider [phone] Reid Li DO Unavailable [phone] uLis Ferguson DO Unavailable Margarita Guerra PA-C Unavailable [phone] Encounter Details Date Type Department Care Team (Late st Contact Info) Description 04/04/2021 Procedure Pass [facility] Cardiovascular And Interventional Radiology 30 [place] [address] Social History Tobacco Use Types Packs/Day Years [...] 02/18/2025 10:00 AM EST Office Visit [facility] 10 [place], [place] [phone] Unknown, Unknown, Coco Ashford, PLANNING ASSOCIATE [address] [address] [email or web address] documented as of this encounter Visit Diagnoses Not on filedocumented in this encounter Care Teams Tester Operator Relationship Specialty Start Date End Date Luis Ferguson DO PCP - General Internal Medicine 01/27/17 Reid Li DO [address] [place] [address] [email or web address] Hematology and Oncology 09/03/17 04/13/24 Luis Ferguson DO [address] [place] [address] Insurance Assigned Provider 07/09/21 07/15/22 Margarita Guerra PA-C [address] [place] [address] Physician Fine Artist 04/14/24 documented as of this encounter Additional Source Comments The information contained in this document represents components of the legal health record. It is not the complete legal health record.[facility]
--- OUTSIDE RECORDS SUMMARY | 2025-01-02 11:59 | XMS_ITS | Encounter Summary ---
Author Organization [facility] Address [address] [place] [address] Phone Care Team Providers Care Business Development Professional Name Role Phone Marlenacelina Luis Martinez DO Primary Care Provider [phone] Reid Li DO Unavailable [phone] Margarita Guerra PA-C Unavailable [phone] Encounter Details Date Type Department Care Team (Late st Contact Info) Description 01/04/2023 Transcribe Orders [facility] [address] [place] [address] Sissy Herman PA [address] [facility] [address] [place] [address] [email or web address] Social History Tobacco Use Types Packs/Day Years [...] 02/18/2025 10:00 AM EST Office Visit [facility] 10 [place] [address] Unknown, Unknown, Coco Ashford, MANAGER INFUSION [address] [address] [email or web address] documented as of this encounter Visit Diagnoses Not on filedocumented in this encounter Care Teams Business Development Professional Relationship Specialty Start Date End Date Luis Ferguson DO PCP - General Internal Medicine 01/27/17 Reid Li DO [address] [place] [address] [email or web address] Hematology and Oncology 09/03/17 04/13/24 Margarita Guerra PA-C [address] [place] [address] Physician Event Marketing Manager 04/14/24 documented as of this encounter Additional Source Comments The information contained in this document represents components of the legal health record. It is not the complete legal health record.[facility]
--- OUTSIDE RECORDS SUMMARY | 2025-01-02 11:59 | XMS_ITS | Encounter Summary ---
Author Organization [facility] Address [address] [place] [address] Phone Care Team Providers Care Planner Name Role Phone Phyllis Luis Martinez DO Primary Care Provider [phone] Reid Li DO Unavailable [phone] Lius Ferguson DO Unavailable Margarita Guerra PA-C Unavailable [phone] Encounter Details Date Type Department Care Team (Late st Contact Info) Description 04/15/2021 Procedure Pass [facility] Cardiovascular And Interventional Radiology 30 [place] [address] Social History Tobacco Use Types Packs/Day Years [...] Description 02/18/2025 10:00 AM EST Office Visit [facility] 10 [place], [place] [phone] Unknown, Unknown, Coco Ashford, REAL ESTATE ASSESSOR [address] [address] [email or web address] documented as of this encounter Visit Diagnoses Not on filedocumented in this encounter Care Teams Planner Relationship Specialty Start Date End Date Luis Ferguson DO PCP - General Internal Medicine 01/27/17 Reid Li DO [address] [place] [address] [email or web address] Hematology and Oncology 09/03/17 04/13/24 Luis Ferguson DO [address] [place] [address] Insurance Assigned Provider 07/09/21 07/15/22 Margarita Guerra PA-C [address] [place] [phone] [email or web address] Physician Ballistics Laboratory Gunsmith 04/14/24 documented as of this encounter Additional Source Comments The information contained in this document represents components of the legal health record. It is not the complete legal health record.[facility]
--- OUTSIDE RECORDS SUMMARY | 2025-01-02 11:59 | XMS_ITS | Encounter Summary ---
Author Organization [facility] Address [address] [place] [id number] Phone Care Team Providers Care Silk Soaker Name Role Phone Luis Ferguson Primary Care Provider [phone] Margarita Guerra PA-C Unavailable [phone] Encounter Details Date Type Department Care Team (Latest Contact Info) Description 09/16/2024 Transcribe Orders [facility] [address] [address] Coco Camejo NP 10 [place] [address] Need for hepatitis B screening test (Primary Dx); Alcoholic cirrhosis, unspecified whether ascites present Social History Tobacco Use Types Packs/Day Years [...] Upcoming Encounters Date Type Department Care Team ([facility] st Contact Info) Description 02/18/2025 10:00 AM EST Office Visit [facility] [address] [place] [address] Unknown, Unknown, MD Camejo, Coco Ruiz, FOREST NURSERY SUPERVISOR [address] [place] [phone] [email or web address] documented as of this encounter Results * Hepatitis B surface antibody (09/16/2024 11:10 AM EDT) HBV SURFACE ANTIBODY INDETERMINATE [facility] Comment:Patient should be re tested at a later time. Blood 09/16/2024 11:1 0 AM EDT 09/16/2024 11:24 AM EDT us Coco Camjeo DEALER CARD ROOM LAB BLOOD ORDERABLES Melania l Result [facility] [address] [place] [address] * Hepatitis B core antibody, total (09/16/2024 11:10 AM EDT) HEP B CORE AB, TOT NON-REACTI VE NON-REACTI VE [facility] Blood 09/16/2024 11:1 0 AM EDT 09/16/2024 11:24 AM EDT Coco Camejo DEALER CARD ROOM LAB BLOOD ORDERABLES Melania l Result Performing Organization Address City/[facility]/ZIP Co de Phone Number [address] [address] * HEPATITIS A ANTIBODY, TOTAL (09/16/2024 11:10 AM EDT) HAV TOTAL AB NON-REACTI VE NON-REACTI VE [facility] Blood 09/16/2024 11:1 0 AM EDT 09/16/2024 11:24 AM EDT Coco Sara Camejo DEALER CARD ROOM LAB BLOOD ORDERABLES Melania l Result Performing Organization Address [facility] Co de Phone Number [address] [phone] documented in this encounter Visit Diagnoses Diagnosis Need for hepatitis B screening test- Primary Alcoholic cirrhosis, unspecified whether ascites present documented in this encounter Care Teams Silk Soaker Relationship Specialty Start Date End Date Luis Ferguson DO [email or web address] PCP - General Internal Medicine 01/27/17 Margarita Guerra PA-C [address] [place] [id number] [email or web address] [employer]ician [employer] Specialist 04/14/24 documented as of this encounter Additional Source Comments The information contained in this document represents components of the legal health record. It is not the complete legal health record.[facility]
--- OUTSIDE RECORDS SUMMARY | 2025-01-02 11:59 | XMS_ITS | Encounter Summary ---
Author Organization [facility] Address [address] [place] [phone] Phone Care Team Providers Care Surgical Scrub Tech Name Role Phone Phyllis Luis Martinez DO Primary Care Provider [phone] Reid Li DO Unavailable [phone] Luis Ferguson DO Unavailable Margarita Guerra PA-C Unavailable [phone] Encounter Details Date Type Department Care Team (Late st Contact Info) Description 02/01/2021 Procedure Pass [facility] [address] [place] [address] Social History Tobacco Use Types Packs/Day Years [...] Description 02/18/2025 10:00 AM EST Office Visit [facility] 10 [place], [place] [id number] Unknown, Unknown, Coco Ashford, TRESTLE MAINTERNANCE LABORER [address] [address] [email or web address] documented as of this encounter Visit Diagnoses Not on filedocumented in this encounter Care Teams Surgical Scrub Tech Relationship Specialty Start Date End Date Luis Ferguson DO PCP - General Internal Medicine 01/27/17 Reid Li DO [address] [place] [id number] [email or web address] Hematology and Oncology 09/03/17 04/13/24 Luis Ferguson DO [address] [place] [phone] Insurance Assigned Provider 07/09/21 07/15/22 Margarita Guerra PA-C [address] [place] [address] Physician Detective [employer] 04/14/24 documented as of this encounter Additional Source Comments The information contained in this document represents components of the legal health record. It is not the complete legal health record.[facility]
[2025-01-02 14:30] LABS: Ferritin 557 ng/mL (20-250)
== END 2025-01-02 10:51 | disposition home or self-care (01) ==
LOC: HO.MANLDS 10:50
PROVIDERS: Visit Provider Internal Medicine
DX: E83.110 Hereditary hemochromatosis (principal)
CPT/HCPCS: 36415; 82728